=== PATIENT | female | born 1965 | race Caucasian/White ===

== ENCOUNTER 2017-04-01 13:09 | Emergency (ER) | payer BC ==
[2017-04-01] MEDS ORDERED: NS 0.9% 1000 ML* 1,000 ML IV SCH (16:00)
--- NOTE | 2017-04-01 16:30 | RAD ---
INDICATION: Short of breath . Known mediastinal adenopathy COMPARISON: None TECHNIQUE: An AP portable view obtained at 1605 hours is submitted. FINDINGS: Bones/Soft Tissues: There are no acute bony findings. Cardiomediastinal: There is a right suprahilar mass which represents a previously documented finding Lungs: There are no infiltrates. Pleura: There are no pleural effusions. Other: None IMPRESSION: LUNGS CLEAR. MEDIASTINAL ADENOPATHY.
[2017-04-01 16:31] LABS: Potassium 3.7 mmol/L (3.5-5.0)
[2017-04-01 16:32] LABS: Albumin 3.8 g/dL (3.2-5.2); BUN/Creatinine Ratio 21.8 (8-20); C Reactive Protein 105.17 mg/L (< 5.00); Calcium 8.9 mg/dL (8.6-10.3); EGFR African American 150.5 (>60); Globulin 3.1 g/dL (2-4); Magnesium 2.2 mg/dL (1.9-2.7); Total Bilirubin 0.3 mg/dL (0.2-1.0); Total Protein 6.9 g/dL (6.4-8.9)
[2017-04-01 16:33] LABS: Troponin I 0.01 ng/mL (<0.04)
[2017-04-01 16:35] LABS: Hematocrit 32 % (35-47); Hemoglobin 10.5 g/dl (12.0-16.0); Mean Corpuscular HGB Conc 33 g/dl (31-36); Mean Corpuscular Hemoglobin 28 pg (27-31); Mean Corpuscular Volume 84 fL (80-97); Mean Platelet Volume 7 um3 (7.4-10.4); Red Blood Count 3.77 10^6/ul (4.0-5.4); Red Cell Distribution Width 15 % (10.5-15); White Blood Count 3.1 10^3/ul (3.5-10.8)
[2017-04-01 16:36] LABS: Add Diff/Slide Review? Slide Review Added; Comments Flag Yes
[2017-04-01] MEDS ORDERED: Albuterol/Ipratropium NEB.SOL* Albuterol 2.5 MG/Ipratropium 0.5 MG 3 ML INH ONE (16:49)
[2017-04-01 17:06] LABS: TSH (Thyroid Stimulating Horm) 2.73 mcIU/mL (0.34-5.60)
[2017-04-01] MEDS ORDERED: Iohexol 350* (CONTRAST) 500 ML MDV IV ONE (17:48)
--- NOTE | 2017-04-01 18:01 | RAD ---
INDICATION: Lung carcinoma. Chest pain. Short of breath. Evaluate for pulmonary embolus. COMPARISON: PET scan February 25, 2017 TECHNIQUE: Axial source images were obtained from the thoracic inlet to the hemidiaphragms following administration of [address] angiographic technique was utilized. Coronal and sagittal reconstructed images were acquired. CHEST FINDINGS: Neck/thyroid: The visualized neck to include the thyroid appear normal. Chest wall: There are no acute abnormalities of the bony thorax or chest wall. There is no supraclavicular, infraclavicular, or axillary lymphadenopathy. Lungs : There are no pulmonary parenchymal masses or infiltrates. The pulmonary interstitium appears normal. There are no endobronchial lesions. Cardiomediastinal structures: There is no CT evidence of acute pulmonary embolic disease. The heart is normal in size. There is no pericardial effusion. There is no evidence of aortic aneurysm or dissection. There is again confluent mediastinal as documented on the earlier PET scan. There is no discernible interval change. Pleura : There are no pleural-based masses or effusions. Other: None. IMPRESSION: NO CT EVIDENCE OF ACUTE PULMONARY EMBOLIC DISEASE. MEDIASTINAL LYMPHADENOPATHY, UNCHANGED.
[2017-04-01] MEDS ORDERED: Albuterol HFA INHALER* 8 gm MDI INH ONE (18:42)
[2017-04-01] MEDS ORDERED: predniSONE TAB* 20 MG PO ONE (18:43)
--- NOTE | 2017-04-01 18:55 | ED ---
Gerson Srivastava Benjamin, scribed for Steve Mcrae MD on 04/01/17 at 1612 . Shortness of Breath - HPI Summary HPI Summary: 51yo female who has lung CA had her 2nd radiation therapy yesterday and report feeling SOB immediately after her therapy. Pt is still in SOB, and SOB worsens with activities. No has negative cardiac hx, and denies any CP, abdominal pain or leg edema. 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 - Onset/Duration: Gradual Onset Current Severity: Moderate Dyspnea At: Exertion Aggrevating Factors: Movement Alleviating Factors: Nothing Associated Signs & Symptoms: Negative - Allergy/Home Medications Allergies/Adverse Reactions: Allergies Allergy/AdvReac Type Severity Reaction Status Date / Time Ethanol [From Taxol] Allergy Severe Anaphylatic Verified 04/01/17 13:11 Shock Paclitaxel [From Taxol] Allergy Severe Anaphylatic Verified 04/01/17 13:11 Shock Polyoxyethylated [place] Oil Allergy Severe Anaphylatic Verified 04/01/17 13:11 [From Taxol] Shock PMH/Surg Hx/FS Hx/Imm Hx Infectious Disease History: No Infectious Disease History: Denies: Traveled Outside the [place] in Last 30 Days - Social History Alcohol Use: None Substance Use Type: Reports: None Smoking Status (MU): Unknown if Ever Smoked Review of Systems Constitutional: Negative Eyes: Negative ENT: Negative Negative: Chest Pain Positive: Shortness Of Breath Gastrointestinal: Negative Negative: Abdominal Pain Genitourinary: Negative Musculoskeletal: Negative Skin: Negative Neurological: Negative Psychological: Normal All Other Systems Reviewed And Are Negative: Yes Physical Exam Triage Information Reviewed: Yes Vital Signs On Initial Exam: Initial Vitals Temp Pulse Resp BP Pulse Ox 98.6 F 96 20 114/68 99 04/01/17 13:11 04/01/17 13:11 04/01/17 13:11 04/01/17 13:11 04/01/17 13:11 Vital Signs Reviewed: Yes Appearance: Positive: Well-Appearing, Well-Nourished, Pain Distress - mild respiratory distress Skin: Positive: Warm, Skin Color Reflects Adequate Perfusion, Dry Head/Face: Positive: Normal Head/Face Inspection Eyes: Positive: EOMI, KENYA ENT: Positive: Normal ENT inspection Neck: Positive: Supple, Nontender Respiratory/Lung Sounds: Positive: Breath Sounds Present, Wheezes - bilateral expiratory wheezing Cardiovascular: Positive: RRR. Negative: Leg Edema Left, Leg Edema Right Abdomen Description: Positive: Nontender, Soft Bowel Sounds: Positive: Present Musculoskeletal: Positive: Strength/ROM Intact. Negative: Edema Left, Edema Right Neurological: Positive: Sensory/Motor Intact, Alert, Oriented to Person Place, Time Psychiatric: Positive: Affect/Mood Appropriate - Nura Coma Scale Coma Scale Total: 15 Diagnostics - Vital Signs Vital Signs Temp Pulse Resp BP Pulse Ox 04/01/17 13:11 98.6 F 96 20 114/68 99 - Laboratory Lab Results: Lab Results 04/01/17 04/01/17 04/01/17 Range/Units 16:00 16:00 16:00 WBC 3.1 L (3.5-10.8) 10^3/ul RBC 3.77 L (4.0-5.4) 10^6/ul Hgb 10.5 L (12.0-16.0) g/dl Hct 32 L (35-47) % MCV 84 (80-97) fL MCH 28 (27-31) pg MCHC 33 (31-36) g/dl RDW 15 (10.5-15) % Plt Count 131 L (150-450) 10^3/ul MPV 7 L (7.4-10.4) um3 Neut % (Auto) 69.9 (38-83) % Lymph % (Auto) 15.7 L (25-47) % Kane % (Auto) 12.4 H (1-9) % Eos % (Auto) 1.1 (0-6) % Baso % (Auto) 0.9 (0-2) % Absolute Neuts (auto) 2.2 (1.5-7.7) 10^3/ul Absolute Lymphs (auto) 0.5 L (1.0-4.8) 10^3/ul Absolute Monos (auto) 0.4 (0-0.8) 10^3/ul Absolute Eos (auto) 0 (0-0.6) 10^3/ul Absolute Basos (auto) 0 (0-0.2) 10^3/ul Absolute Nucleated RBC 0 10^3/ul Nucleated RBC % 0.1 INR (Anticoag Therapy) 0.94 (0.89-1.11) APTT 27.9 (26.0-36.3) seconds Sodium 133 (133-145) mmol/L Potassium 3.7 (3.5-5.0) mmol/L Chloride 101 (101-111) mmol/L Carbon Dioxide 25 (22-32) mmol/L Anion Gap 7 (2-11) mmol/L BUN 12 (6-24) mg/dL Creatinine 0.55 (0.51-0.95) mg/dL Est GFR ( Amer) 150.5 (>60) Est GFR (Non-Af Amer) 117.0 (>60) BUN/Creatinine Ratio 21.8 H (8-20) Glucose 116 H (70-100) mg/dL Lactic Acid (0.5-2.0) mmol/L Calcium 8.9 (8.6-10.3) mg/dL Magnesium 2.2 (1.9-2.7) mg/dL Total Bilirubin 0.30 (0.2-1.0) mg/dL AST 17 (13-39) U/L ALT 34 (7-52) U/L Alkaline Phosphatase 66 (34-104) U/L Total Creatine Kinase 26 (10-223) U/L CK-MB (CK-2) 0.9 (0.6-6.3) ng/mL Troponin I 0.01 (<0.04) ng/mL C-Reactive Protein 105.17 H (< 5.00) mg/L B-Natriuretic Peptide ( - 100) pg/mL Total Protein 6.9 (6.4-8.9) g/dL Albumin 3.8 (3.2-5.2) g/dL Globulin 3.1 (2-4) g/dL Albumin/Globulin Ratio 1.2 (1-3) Lipase 14 (11.0-82.0) U/L TSH 2.73 (0.34-5.60) mcIU/mL 04/01/17 04/01/17 Range/Units 16:00 16:00 WBC (3.5-10.8) 10^3/ul RBC (4.0-5.4) 10^6/ul Hgb (12.0-16.0) g/dl Hct (35-47) % MCV (80-97) fL MCH (27-31) pg MCHC (31-36) g/dl RDW (10.5-15) % Plt Count (150-450) 10^3/ul MPV (7.4-10.4) um3 Neut % (Auto) (38-83) % Lymph % (Auto) (25-47) % Kane % (Auto) (1-9) % Eos % (Auto) (0-6) % Baso % (Auto) (0-2) % Absolute Neuts (auto) (1.5-7.7) 10^3/ul Absolute Lymphs (auto) (1.0-4.8) 10^3/ul Absolute Monos (auto) (0-0.8) 10^3/ul Absolute Eos (auto) (0-0.6) 10^3/ul Absolute Basos (auto) (0-0.2) 10^3/ul Absolute Nucleated RBC 10^3/ul Nucleated RBC % INR (Anticoag Therapy) (0.89-1.11) APTT (26.0-36.3) seconds Sodium (133-145) mmol/L Potassium (3.5-5.0) mmol/L Chloride (101-111) mmol/L Carbon Dioxide (22-32) mmol/L Anion Gap (2-11) mmol/L BUN (6-24) mg/dL Creatinine (0.51-0.95) mg/dL Est GFR ( Amer) (>60) Est GFR (Non-Af Amer) (>60) BUN/Creatinine Ratio (8-20) Glucose (70-100) mg/dL Lactic Acid 0.8 (0.5-2.0) mmol/L Calcium (8.6-10.3) mg/dL Magnesium (1.9-2.7) mg/dL Total Bilirubin (0.2-1.0) mg/dL AST (13-39) U/L ALT (7-52) U/L Alkaline Phosphatase (34-104) U/L Total Creatine Kinase (10-223) U/L CK-MB (CK-2) (0.6-6.3) ng/mL Troponin I (<0.04) ng/mL C-Reactive Protein (< 5.00) mg/L B-Natriuretic Peptide 30 ( - 100) pg/mL Total Protein (6.4-8.9) g/dL Albumin (3.2-5.2) g/dL Globulin (2-4) g/dL Albumin/Globulin Ratio (1-3) Lipase (11.0-82.0) U/L TSH (0.34-5.60) mcIU/mL Result Diagrams: 04/01/17 16:00 04/01/17 16:00 Lab Statement: Any lab studies that have been ordered have been reviewed, and results considered in the medical decision making process. - Radiology CXR Xray Interpretation: No Acute Changes - IMPRESSION: LUNGS CLEAR. MEDIASTINAL ADENOPATHY. Radiology Interpretation Completed By: Radiologist - ED physician has reviewed this radiology report and agrees. - CT CTA Chest CT Interpretation: No Acute Changes - IMPRESSION: NO CT EVIDENCE OF ACUTE PULMONARY EMBOLIC DISEASE. MEDIASTINAL LYMPHADENOPATHY, UNCHANGED. CT Interpretation Completed By: Radiologist - ED physician has reviewed this radiology report and agrees. Course/Dx - Course Course Of Treatment: BP noted. Allergies noted. Medications reviewed. WHEEZING/ AIR MOVEMENT/DYSPNEA ALL IMPROVED AFTER DUO NEB. F/U HEME/ONC; RETURN IF WORSE. HOME WITH ALBUTEROL INHALER. PREDNISONE RX TO BE USED PRN. RESULTS AND PLAN DISCUSSED WITH PATIENT/. - Diagnoses Provider Diagnoses: Bronchospasm, Dyspnea Discharge - Discharge Plan Condition: Stable Disposition: HOME Prescriptions: predniSONE TAB* [Deltasone TAB*] 40 mg PO DAILY PRN #8 tab PRN Reason: Dyspnea Patient Education Materials: Bronchospasm (ED), Dyspnea (ED) Referrals: Marianne Mcneill MD [Primary Care Provider] - Additional Instructions: FOLLOW UP WITH YOUR DOCTOR. RETURN TO THE EMERGENCY DEPARTMENT FOR ANY WORSENING OF YOUR CONDITION OR QUESTIONS OR CONCERNS. The documentation as recorded by the Gerson mota Benjamin accurately reflects the service I personally performed and the decisions made by me, Steve Mcrae MD.
[2017-04-01 19:39] VITALS: BP 109/67
== END 2017-04-01 19:13 | disposition home or self-care (01) ==
LOC: ED 13:09
DX: R06.02 Shortness of breath (principal); J98.01 Acute bronchospasm; R06.00 Dyspnea, unspecified
CPT/HCPCS: 36415; 71010; 71275; 80053; 82550; 82553; 83605; 83690; 83735; 83880; 84443; 84484; 85025; 85610; 85730; 86140; 94640; 99282; A9270-GY; J7512; Q9967

== ENCOUNTER 2017-05-04 17:46 | Emergency (ER) | payer BC ==
[2017-05-04 18:01] VITALS: BP 150/102
== END 2017-05-04 18:08 | disposition left against medical advice (07) ==
LOC: ED 17:46
DX: M79.602 Pain in left arm (principal); Z53.21 Procedure and treatment not carried out due to patient leaving prior to being seen by health care provider

== ENCOUNTER 2017-10-08 11:21 | Day surgery (SDC) | payer BC ==
[~2017-10-08 11:21] MED LIST: Buffered Lidocaine 0.9% SYRIN* 5 ML/SYR SYRINGE INTRADERM ONE
[2017-10-08] MEDS ORDERED: Scopolamine 1.5 mg* PATCH ONE (12:00)
[2017-10-08] MEDS ORDERED: Levalbuterol 1.25MG/0.5ML NEB ONE (12:00)
[2017-10-08] MEDS ORDERED: Midazolam* 1 MG/ML 5 ML VIAL (5 MG) ONE (13:03)
[2017-10-08] MEDS ORDERED: Propofol* 10 MG/ML 20 ML BTL IV PUSH ONE (13:09)
[2017-10-08] MEDS ORDERED: fentaNYL* 50 MCG/ML 2 ML VIAL (100 MCG VIAL) ONE (13:09)
[2017-10-08] MEDS ORDERED: Atracurium* 10 MG/ML 10 ML VIAL ONE (13:09)
[2017-10-08] MEDS ORDERED: Dexamethasone IV* 4 MG/ML 1 ML (4 MG) ONE ×2 (13:18→13:19)
[2017-10-08] MEDS ORDERED: Naloxone* 0.4 MG/ML 1 ML VIAL IV PRN (13:54)
[2017-10-08] MEDS ORDERED: fentaNYL* 50 MCG/ML 2 ML VIAL (100 MCG VIAL) IV PRN (13:54)
[2017-10-08] MEDS ORDERED: oxyCODONE/Acetamin 5/325 MG* TAB PO PRN (13:54)
[2017-10-08] MEDS ORDERED: HYDROcodone/ACETAMIN 5-325 MG* 1 TAB PO PRN (13:54)
[2017-10-08] MEDS ORDERED: DiMENhydriNATE IV* 50 MG/ML VIAL IV PUSH PRN (13:54)
[2017-10-08] MEDS ORDERED: Levalbuterol 0.63MG/3ML NEB* UNIT OF USE INH ONE (14:23)
[2017-10-08] MEDS ORDERED: HYDROcodone/ACETAMIN 5-325 MG* 1 TAB ONE (14:54)
[2017-10-08 15:15] VITALS: BP 131/86
--- NOTE | 2017-10-09 10:46 | PRO ---
BRONCHOSCOPY REPORT: DATE OF PROCEDURE: 10/08/17 PROCEDURE PERFORMED: Bronchoscopy with endobronchial ultrasound-guided fine needle aspiration from station 7 lymph node. PREPROCEDURAL DIAGNOSIS: Mediastinal adenopathy, lung mass, rule out malignancy. ANESTHESIA: General anesthesia. ANESTHESIOLOGIST: Dr. Moreno. DESCRIPTION OF PROCEDURE: Informed consent was obtained from the patient prior to the procedure after all the risks and benefits were thoroughly explained. The patient has been undergoing evaluation for malignancy. Appropriate time- out was agreed on by attending staff. The patient was intubated with size 8.0 endotracheal tube prior to the procedure. Flexible Olympus bronchoscope was then inserted through ET tube for airway inspection. Thick secretions were noted on both sides and were suctioned out. ET tube positioning was confirmed to be 2 cm above the level of manasa. Bronchoscope was then advanced into the left bronchial tree, which was inspected. Evidence of mucosal irregularity, thick secretions and tracheomalacia was noted. Bronchoscope was then advanced into right bronchial tree. Evidence of endobronchial narrowing was noted in the right bronchial tree. There were thick secretions plugging middle lobe bronchus and also superior segment, which were suctioned out. The patient also noted to have mucous plug in medial basal segment of right lower lobe bronchus. Mucosal irregularity was noted throughout the right bronchial tree. Further inspection of medial basal segment could not be performed as it was significantly narrowed and bronchoscope cannot be inserted further. The patient noted to have bleeding just with minimal suction. Bronchoscope was then withdrawn and EBUS bronchoscope was inserted. Station 7 lymph node was significantly enlarged and was accessed with 5 passes. Rapid on- site evaluation revealed malignant cells suggestive of possible non-small cell lung cancer. Rest of specimen was placed in formalin. Bronchoscope was then withdrawn. Regular bronchoscope was then inserted to evaluate for any bleeding. No significant bleeding was noted. Bronchoscope was then withdrawn. The patient extubated and seen in Recovery in optimal condition. [id number]/[facility] #: [id number] [facility]
== END 2017-10-08 15:21 | disposition home or self-care (01) ==
LOC: OR 11:21
PROVIDERS: ATTEND Internal Medicine
DX: C34.90 Malignant neoplasm of unspecified part of unspecified bronchus or lung (principal); C77.1 Secondary and unspecified malignant neoplasm of intrathoracic lymph nodes; Z87.891 Personal history of nicotine dependence; R06.02 Shortness of breath; R06.83 Snoring; E66.09 Other obesity due to excess calories; I10 Essential (primary) hypertension
CPT/HCPCS: 81445; 88172; 88173; 88177; 88305; 88360; A9270-GY; J1100; J2250; J2704; J3010

== ENCOUNTER 2017-11-17 14:45 | Inpatient (IN) | payer BC ==
[2017-11-17] MEDS ORDERED: Ipratropium 0.5MG/2.5ML NEB* 0.5 MG/2.5 ML NEB.SOLN INH PRN (15:04)
[2017-11-17] MEDS ORDERED: LORazepam INJ* 2 MG/ML 1 ML VIAL IV PUSH PRN (15:11)
[2017-11-17] MEDS: Azithromycin IV(*) 250 MG in NS 0.9% 250 ML* 250 ML IVPB SCH (19:01)
[2017-11-18] MEDS ORDERED: Albuterol/Ipratropium NEB.SOL* Albuterol 2.5 MG/Ipratropium 0.5 MG 3 ML INH PRN (09:11)
--- NOTE | 2017-11-18 09:18 | PN ---
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 She was admitted yesterday for a COPD exacerbation. CTA negative for PE but did show dense consolidation of RML. No fevers overnight. Wanda reports that she feels slightly better today than yesterday. Still SOB with minimal activity with a productive cough. ] Objective: [ Vital Signs Temp Pulse Resp BP Pulse Ox 98.1 F 109 20 144/92 97 11/18/17 03:56 11/18/17 03:56 11/18/17 08:14 11/18/17 03:56 11/18/17 03:56 Hydrocodone Bitart/Acetaminophen (Nortab 7.5/325 Liq*) 15 ml PO Q6HR PRN PRN Reason: PAIN Albuterol/Ipratropium (Duoneb (Albuterol 2.5 Mg/Ipratropium 0.5 Mg)) 1 neb INH Q4H PRN PRN Reason: SOB/WHEEZING Device (Tiotropium Inhaler Device*) 1 each INH .USE w/ SPIRIVA CAPS ALLYSSA Duloxetine HCl (Cymbalta Cap*) 60 mg PO DAILY ALLYSSA Enoxaparin Sodium (Lovenox(*)) 120 mg SUBCUT Q24H ALLYSSA Guaifenesin (Mucinex*) 1,200 mg PO BID ALLYSSA Azithromycin 250 mg/ Sodium (Chloride) 250 mls @ 250 mls/hr IVPB Q24H ALLYSSA Last Admin: 11/17/17 19:01 Dose: 250 mls/hr Ceftriaxone Sodium 1 gm/ (Sodium Chloride) 50 mls @ 200 mls/hr IVPB Q24H ALLYSSA Lisinopril (Prinivil Tab*) 10 mg PO QAM ALLYSSA Lorazepam (Ativan Inj*) 0.5 mg IV PUSH Q4H PRN PRN Reason: Anxiety/insomnia Last Admin: 11/18/17 08:14 Dose: 0.5 mg Methylprednisolone Sodium Succinate (Solu-Medrol 40 Mg) 40 mg IV Q12H ALLYSSA Tiotropium [place] (Spiriva Cap.Inh*) 1 cap INH DAILY ALLYSSA Exam: Gen: 52 yo female who appears mildly ill. Cushingoid appearance HEENT: MMM, no thrush Resp: reduced breath sounds diffusely, focal wheeze in R anterior lung field CV: RRR, no m/r/g Abd: soft, nonTTP Ext: no edema Skin: no rashes or lesions Assessment: [52 yo female with squamous cell carcinoma of the lung on palliative taxotere s/ p C2 admitted with what appears to be a PNA with COPD exacerbation.] Plan: [1. PNA with COPD exacerbation - start Ceftriaxone, cont Azithromycin - cont prn DuoNebs - add Spiriva - start Solumedrol - pulm consult requested 2. Squamous cell lung CA - hold chemo until PNA resolved 3. H/o PE - resumed Lovenox 4. Code - FULL Dispo: anticipate dc home in 2-3 days]
[2017-11-18] MEDS ORDERED: Spiriva Inhaler DEVICE* 1 EACH DEVICE SCH (10:00)
[2017-11-18] MEDS ORDERED: Spiriva Inhaler DEVICE* 1 EACH DEVICE INH SCH (10:00)
[2017-11-18] MEDS: DULoxetine DR CAP* 60 MG CAP.DR PO SCH (10:17)
[2017-11-18] MEDS: guaiFENesin ER TAB 600 MG PO SCH ×2 (10:17→20:24)
[2017-11-18] MEDS: Lisinopril TAB* 10 MG PO SCH (10:18)
[2017-11-18] MEDS: methylPREDNISolone SOD 40 MG* 1 ML VIAL IV SCH ×2 (10:19→20:24)
[2017-11-18] MEDS: cefTRIAXone(*) 1 GM in NS 0.9% 50 ML* 50 ML IVPB SCH (10:31)
[2017-11-18] MEDS: Tiotropium CAP.INH* CAP.INH/18 MCG (USE ORDER SET !) INH SCH (10:38)
[2017-11-18] MEDS ORDERED: Sodium Chloride(INHALANT) 7%* 4 ML NEB.SOLN INH PRN (13:06)
[2017-11-18] MEDS: Azithromycin IV(*) 250 MG in NS 0.9% 250 ML* 250 ML IVPB SCH (16:37)
[2017-11-18] MEDS: Enoxaparin(*) 150 MG/ML 1 ML SYRINGE SUBCUT SCH (16:37)
--- NOTE | 2017-11-18 18:32 | CONS ---
PULMONARY CONSULTATION REPORT: DATE OF CONSULT: 11/18/17 CONSULTATION REQUESTED BY: Dr. Marianne Mcneill. REASON FOR CONSULT: Evaluation of shortness of breath. 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 The patient was admitted to the hospital for evaluation of worsening shortness of breath. The patient has been having worsening shortness of breath over the past few days. The patient has been avoiding evaluation, but it worsened over the past 2 days and her brought her to her oncologist for evaluation. The patient noted to be in significant distress, complained of chest discomfort, cough, and inability to take deep breath. The patient also reported productive cough. The patient denies fevers or chills. The patient subsequently was scheduled to undergo CTA of the chest. I have personally reviewed CTA of the chest. The patient did not have any filling defects in the pulmonary artery. The patient noted to have consolidation in the right middle lobe and superior segment of right lower lobe with air bronchograms. The patient also with evidence of right pleural effusion. There is increase in consolidation in the right middle and right lower lobe in comparison with prior CT from August of 2017. The patient also with small right pericardial effusion. The patient was initiated on antibiotics, nebulizers, and was admitted for acute COPD exacerbation. The patient was seen and examined at bedside this morning. The patient complained of abdominal discomfort in the right upper quadrant. The patient was crying at the time of my evaluation. The patient reports improvement in breathing since admission. She has been on room air. The patient reports inability to expectorate the phlegm. The patient did not have any tenderness on palpation. The patient reported last bowel movement being yesterday. Denies nausea, vomiting. The patient reports being able to expectorate flatus. PAST MEDICAL HISTORY: 1. COPD. 2. Metastatic squamous cell lung cancer. 3. Hypertension. PAST SURGICAL HISTORY: Teeth removed in 2017, cholecystectomy in 2014, total hysterectomy and bilateral salpingo-oophorectomy in 2009. MEDICATIONS AT HOME: 1. Duloxetine. 2. Hydromorphone. 3. Acetaminophen. 4. Lisinopril. 5. Multivitamin. 6. NicoDerm. 7. Prednisone 20 mg. 8. Ventolin. ALLERGIES: TAXOL. FAMILY HISTORY: Noncontributory to current complaint. SOCIAL HISTORY: , lives at home with her . A 40-pack year smoking history. No alcohol or drug abuse. Using nicotine patch and vapor inhaler. REVIEW OF SYSTEMS: All 14 systems reviewed. Other pertinent symptoms are fatigue, depression. PHYSICAL EXAM: The patient is in bed, in no apparent distress at this time, is tearful. Vital Signs: Temperature 97.7, pulse 100 beats per minute, respiratory rate 16 per minute, O2 saturation 96% on room air, blood pressure 129/66. HEENT: Pupils equal, reactive to light. Mucous membranes moist. Lungs : Scattered wheezing bilaterally, diminished air entry both sides. Cardiovascular: S1, S2 present, regular. No murmurs, gallops, or rubs. Abdomen: Soft, nontender, nondistended. Bowel sounds present. No rebound tenderness noted. Skin: No rash or bruise. Neuro: No focal deficits. Psych : Depressed, not suicidal. Extremities: Normal range of motion. No edema. DIAGNOSTIC STUDIES/LAB DATA: WBC 7.6, hemoglobin 11.4, hematocrit 34, platelet count of 250. Blood gas analysis showed no evidence of acidosis with pCO2 of 71 and bicarb of 25.3. Sodium 136, potassium 3.6, chloride 103, bicarb 26, BUN 17, creatinine 0.64. Lactic acid within normal limits. Troponin initially elevated at 0.04, improved to normal of 0.01. CTA of the chest as described above in HPI. IMPRESSION AND RECOMMENDATIONS: 52-year-old female with extensive smoking history with history of chronic obstructive pulmonary disease, progression of squamous cell carcinoma of the lung, on palliative chemotherapy, admitted for worsening shortness of breath, being treated for right middle lobe pneumonia and acute chronic obstructive pulmonary disease exacerbation. The patient is on Rocephin and Zithromax. Continue with DuoNeb q.4 hours while awake. Will order MetaNeb given inability to mobilize secretions. She will also benefit from hypertonic saline nebs, which were ordered. Continue with Solu-Medrol. Will do slow taper On Lovenox given history of deep venous thrombosis/pulmonary embolism. Continue with Spiriva. Recommend adequate analgesia given the patient's complaint of pain. The patient is stable on room air. I think depression is also playing major role in her symptoms. She might have persistent obstruction in the right middle lobe given progression of the malignancy. Bronchoscopy would not be helpful. She is saturating well on room air at this time and not needing urgent airway clearance. She already has diagnosis and biopsy is not indicated. Would continue with conservative management at this time. She might benefit from psychiatric evaluation for management of depression. She is already on Cymbalta , did not want to be seen by Psych. Thank you for allowing me to participate in the care of your patient. Will follow up with you. [id number]/[facility] #: [id number] TRU
[2017-11-18] MEDS: Albuterol/Ipratropium NEB.SOL* Albuterol 2.5 MG/Ipratropium 0.5 MG 3 ML INH SCH (19:36)
[2017-11-18] MEDS ORDERED: traMADol TAB* 50 MG PO PRN (20:00)
[2017-11-18] MEDS: HYDROcodone/ACET. 7.5/325 LIQ* 15 ML UDC PO PRN (20:24)
[2017-11-19] MEDS: Albuterol/Ipratropium NEB.SOL* Albuterol 2.5 MG/Ipratropium 0.5 MG 3 ML INH SCH ×4 (01:22→20:43)
[2017-11-19 05:52] LABS: ABS Basophils 0 10^3/ul (0-0.2); ABS Eosinophils 0 10^3/ul (0-0.6); ABS Lymphocytes 0.7 10^3/ul (1.0-4.8); ABS Monocytes 0.4 10^3/ul (0-0.8); ABS Neutrophils 5.2 10^3/ul (1.5-7.7); ABS Nucleated RBC 0 10^3/ul; Eosinophil % 0 % (0-6); Hematocrit 30 % (35-47); Lymphocyte % 11.2 % (25-47); Mean Corpuscular HGB Conc 34 g/dl (31-36); Mean Corpuscular Hemoglobin 30 pg (27-31); Mean Corpuscular Volume 89 fL (80-97); Nucleated Red Blood Cells % 0.4; Platelet Count 316 10^3/ul (150-450); Red Blood Count 3.34 10^6/ul (4.00-5.40); Red Cell Distribution Width 17 % (10.5-15); White Blood Count 6.3 10^3/ul (3.5-10.8)
[2017-11-19 06:08] LABS: EGFR Non-African American 97.8 (>60)
[2017-11-19] MEDS: Tiotropium CAP.INH* CAP.INH/18 MCG (USE ORDER SET !) INH SCH (07:24)
[2017-11-19] MEDS: DULoxetine DR CAP* 60 MG CAP.DR PO SCH (09:44)
[2017-11-19] MEDS: guaiFENesin ER TAB 600 MG PO SCH ×2 (09:44→22:24)
[2017-11-19] MEDS: Lisinopril TAB* 10 MG PO SCH (09:44)
[2017-11-19] MEDS: methylPREDNISolone SOD 40 MG* 1 ML VIAL IV SCH (09:44)
[2017-11-19] MEDS: cefTRIAXone(*) 1 GM in NS 0.9% 50 ML* 50 ML IVPB SCH (09:50)
--- NOTE | 2017-11-19 10:51 | PN ---
Progress Note - Progress Note Date of Service: 11/19/17 SOAP: Subjective: [She is still coughing, dyspnea improved. Some trouble with sleeping due to the cough. Overall feeling much better.] Objective: [ Laboratory Results - last 24 hr 11/19/17 11/19/17 05:15 05:15 WBC 6.3 RBC 3.34 L Hgb 10.0 L Hct 30 L MCV 89 MCH 30 MCHC 34 RDW 17 H Plt Count 316 MPV 7.0 L Neut % (Auto) 82.6 Lymph % (Auto) 11.2 L Dougherty % (Auto) 6.1 Eos % (Auto) 0 Baso % (Auto) 0.1 Absolute Neuts (auto) 5.2 Absolute Lymphs (auto) 0.7 L Absolute Monos (auto) 0.4 Absolute Eos (auto) 0 Absolute Basos (auto) 0 Absolute Nucleated RBC 0 Nucleated RBC % 0.4 Sodium 139 Potassium 4.3 Chloride 105 Carbon Dioxide 27 Anion Gap 7 BUN 17 Creatinine 0.64 Est GFR ( Amer) 118.4 Est GFR (Non-Af Amer) 97.8 BUN/Creatinine Ratio 26.6 H Glucose 126 H Calcium 9.3 Total Bilirubin 0.30 AST 9 L ALT 14 Alkaline Phosphatase 44 Total Protein 6.3 L Albumin 3.6 Globulin 2.7 Albumin/Globulin Ratio 1.3 Hydrocodone Bitart/Acetaminophen (Nortab 7.5/325 Liq*) 15 ml PO Q6HR PRN PRN Reason: PAIN Last Admin: 11/18/17 20:24 Dose: 15 ml Albuterol/Ipratropium (Duoneb (Albuterol 2.5 Mg/Ipratropium 0.5 Mg)) 1 neb INH Q4H PRN PRN Reason: SOB/WHEEZING Last Admin: 11/18/17 10:38 Dose: 1 neb Albuterol/Ipratropium (Duoneb (Albuterol 2.5 Mg/Ipratropium 0.5 Mg)) 1 neb INH [id number] AWAKE [facility] Last Admin: 11/19/17 07:24 Dose: 1 neb Device (Tiotropium Inhaler Device*) 1 each INH .USE w/ SPIRIVA CAPS ALLYSSA Duloxetine HCl (Cymbalta Cap*) 60 mg PO DAILY [facility] Last Admin: 11/19/17 09:44 Dose: 60 mg Enoxaparin Sodium (Lovenox(*)) 120 mg SUBCUT Q24H [facility] Last Admin: 11/18/17 16:37 Dose: 120 mg Guaifenesin (Mucinex*) 1,200 mg PO BID [facility] Last Admin: 11/19/17 09:44 Dose: 1,200 mg Azithromycin 250 mg/ Sodium (Chloride) 250 mls @ 250 mls/hr IVPB Q24H [facility] Last Admin: 11/18/17 16:37 Dose: 250 mls/hr Ceftriaxone Sodium 1 gm/ (Sodium Chloride) 50 mls @ 200 mls/hr IVPB Q24H [facility] Last Admin: 11/19/17 09:50 Dose: 200 mls/hr Lisinopril (Prinivil Tab*) 10 mg PO QAM [facility] Last Admin: 11/19/17 09:44 Dose: 10 mg Lorazepam (Ativan Inj*) 0.5 mg IV PUSH Q4H PRN PRN Reason: Anxiety/insomnia Last Admin: 11/18/17 08:14 Dose: 0.5 mg Methylprednisolone Sodium Succinate (Solu-Medrol 40 Mg) 40 mg IV Q12H [facility] Last Admin: 11/19/17 09:44 Dose: 40 mg Sodium Chloride (Hyper-Arsen 7%*) 4 ml INH .SEE ORDERS PRN PRN Reason: WHEEZING Tiotropium [place] (Spiriva Cap.Inh*) 1 cap INH DAILY [facility] Last Admin: 11/19/17 07:24 Dose: 1 cap Tramadol HCl (Ultram*) 50 mg PO Q6H PRN PRN Reason: PAIN - MILD 1-4 Vital Signs: Temp Pulse Resp BP Pulse Ox 98.2 F 88 22 152/90 96 11/19/17 07:15 11/19/17 07:24 11/19/17 08:00 11/19/17 07:15 11/19/17 07:24 Exam: Gen: 52 yo female who appears mildly ill, but improved affect. Cushingoid appearance HEENT: MMM, no thrush Resp: improved breath sounds, faint wheeze in R anterior lung field CV: RRR, no m/r/g Abd: soft, nonTTP Ext: no edema Skin: no rashes or lesions Assessment: [52 yo female with squamous cell carcinoma of the lung on palliative taxotere s/ p C2 admitted with what appears to be a PNA with COPD exacerbation.] Plan: [1. PNA with COPD exacerbation - Cont Ceftriaxone, cont Azithromycin - cont prn DuoNebs - add Spiriva - cont Solumedrol today, start taper to oral prednisone - pulm consult requested 2. Squamous cell lung CA - hold chemo until PNA resolved 3. H/o PE - resumed Lovenox this admission, may be able to transition to Eliquis after a few weeks 4. Code - FULL Dispo: anticipate possible dc home tomorrow]
[2017-11-19] MEDS: HYDROcodone/ACET. 7.5/325 LIQ* 15 ML UDC PO PRN (11:58)
--- NOTE | 2017-11-19 12:45 | PN ---
Progress Note - Progress Note Date of Service: 11/19/17 - Pulm f/u note Note: Pt seen and examined at bedside. Pt reports feeling better, denies significant SOB, discomfort in chest and abdomen when she takes deep breath. Slept well last night Active Medications Generic Name Dose Route Start Last Admin Trade Name Freq PRN Reason Stop Dose Admin Hydrocodone Bitart/Acetaminophen 15 ml 11/18/17 08:45 11/19/17 11:58 Nortab 7.5/325 Liq* PO 15 ml Q6HR PRN Administration PAIN Albuterol/Ipratropium 1 neb 11/18/17 09:11 11/18/17 10:38 Duoneb (Albuterol 2.5 Mg/Ipratropium 0.5 Mg) INH 1 neb Q4H PRN Administration SOB/WHEEZING Albuterol/Ipratropium 1 neb 11/18/17 19:00 11/19/17 07:24 Duoneb (Albuterol 2.5 Mg/Ipratropium 0.5 Mg) INH 1 neb [id number] AWAKE ALLYSSA Administration Device 1 each 11/18/17 10:00 Tiotropium Inhaler Device* INH .USE w/ SPIRIVA CAPS ALLYSSA Duloxetine HCl 60 mg 11/18/17 09:00 11/19/17 09:44 Cymbalta Cap* PO 60 mg DAILY ALLYSSA Administration Enoxaparin Sodium 120 mg 11/18/17 17:00 11/18/17 16:37 Lovenox(*) SUBCUT 120 mg Q24H ALLYSSA Administration Guaifenesin 1,200 mg 11/18/17 09:00 11/19/17 09:44 Mucinex* PO 1,200 mg BID ALLYSSA Administration Azithromycin 250 mg/ Sodium 250 mls @ 250 mls/hr 11/17/17 18:00 11/18/17 16: 37 Chloride IVPB 250 mls/hr Q24H ALLYSSA Administration Ceftriaxone Sodium 1 gm/ 50 mls @ 200 mls/hr 11/18/17 09:30 11/19/17 09:50 Sodium Chloride IVPB 200 mls/hr Q24H ALLYSSA Administration Lisinopril 10 mg 11/18/17 09:00 11/19/17 09:44 Prinivil Tab* PO 10 mg QAM ALLYSSA Administration Lorazepam 0.5 mg 11/17/17 15:11 11/18/17 08:14 Ativan Inj* IV PUSH 0.5 mg Q4H PRN Administration Anxiety/insomnia Prednisone 60 mg 11/20/17 09:00 Deltasone Tab* PO DAILY ALLYSSA Sodium Chloride 4 ml 11/18/17 13:06 Hyper-Arsen 7%* INH .SEE ORDERS PRN WHEEZING Tiotropium [place] 1 cap 11/18/17 10:00 11/19/17 07:24 Spiriva Cap.Inh* INH 1 cap DAILY ALLYSSA Administration Tramadol HCl 50 mg 11/18/17 20:00 Ultram* PO Q6H PRN PAIN - MILD 1-4 Vital Signs Temp Pulse Resp BP Pulse Ox 98.2 F 88 16 152/90 96 11/19/17 07:15 11/19/17 07:24 11/19/17 11:58 11/19/17 07:15 11/19/17 07:24 O/E: Pt in NAD HEENT: PERRLA, No JVD Lungs; Diminished air entry, scaterred rhonchi on left CVS: S1, S2+ Abd: Soft, BS+ Ext; No edema Neuro; No focal defecits Skin: No rah or bruise Laboratory Results - last 24 hr 11/19/17 11/19/17 05:15 05:15 WBC 6.3 RBC 3.34 L Hgb 10.0 L Hct 30 L MCV 89 MCH 30 MCHC 34 RDW 17 H Plt Count 316 MPV 7.0 L Neut % (Auto) 82.6 Lymph % (Auto) 11.2 L [place] % (Auto) 6.1 Eos % (Auto) 0 Baso % (Auto) 0.1 Absolute Neuts (auto) 5.2 Absolute Lymphs (auto) 0.7 L Absolute Monos (auto) 0.4 Absolute Eos (auto) 0 Absolute Basos (auto) 0 Absolute Nucleated RBC 0 Nucleated RBC % 0.4 Sodium 139 Potassium 4.3 Chloride 105 Carbon Dioxide 27 Anion Gap 7 BUN 17 Creatinine 0.64 Est GFR ( Amer) 118.4 Est GFR (Non-Af Amer) 97.8 BUN/Creatinine Ratio 26.6 H Glucose 126 H Calcium 9.3 Total Bilirubin 0.30 AST 9 L ALT 14 Alkaline Phosphatase 44 Total Protein 6.3 L Albumin 3.6 Globulin 2.7 Albumin/Globulin Ratio 1.3 I/R: 52 y o f with 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
[2017-11-19] MEDS: Enoxaparin(*) 150 MG/ML 1 ML SYRINGE SUBCUT SCH (18:00)
[2017-11-19] MEDS: Azithromycin IV(*) 250 MG in NS 0.9% 250 ML* 250 ML IVPB SCH (18:01)
[2017-11-20] MEDS: Albuterol/Ipratropium NEB.SOL* Albuterol 2.5 MG/Ipratropium 0.5 MG 3 ML INH SCH ×2 (02:02→07:08)
[2017-11-20] MEDS: HYDROcodone/ACET. 7.5/325 LIQ* 15 ML UDC PO PRN (04:14)
[2017-11-20] MEDS: Tiotropium CAP.INH* CAP.INH/18 MCG (USE ORDER SET !) INH SCH (07:09)
[2017-11-20] MEDS: guaiFENesin ER TAB 600 MG PO SCH (07:16)
[2017-11-20] MEDS: Lisinopril TAB* 10 MG PO SCH (07:17)
[2017-11-20] MEDS: DULoxetine DR CAP* 60 MG CAP.DR PO SCH (07:17)
--- NOTE | 2017-11-20 08:01 | PN ---
Progress Note - Progress Note Date of Service: 11/20/17 SOAP: Subjective: []Doing well. Breathing improved yesterday. Some pain last night but better today. Same pain on right side has had in past. No cough. Hydrocodone Bitart/Acetaminophen (Nortab 7.5/325 Liq*) 15 ml PO Q6HR PRN PRN Reason: PAIN Last Admin: 11/20/17 04:14 Dose: 15 ml Albuterol/Ipratropium (Duoneb (Albuterol 2.5 Mg/Ipratropium 0.5 Mg)) 1 neb INH Q4H PRN PRN Reason: SOB/WHEEZING Last Admin: 11/18/17 10:38 Dose: 1 neb Albuterol/Ipratropium (Duoneb (Albuterol 2.5 Mg/Ipratropium 0.5 Mg)) 1 neb INH [id number] AWAKE [facility] Last Admin: 11/20/17 07:08 Dose: 1 neb Device (Tiotropium Inhaler Device*) 1 each INH .USE w/ SPIRIVA CAPS [facility] Duloxetine HCl (Cymbalta Cap*) 60 mg PO DAILY [facility] Last Admin: 11/20/17 07:17 Dose: 60 mg Enoxaparin Sodium (Lovenox(*)) 120 mg SUBCUT Q24H [facility] Last Admin: 11/19/17 18:00 Dose: 120 mg Guaifenesin (Mucinex*) 1,200 mg PO BID [facility] Last Admin: 11/20/17 07:16 Dose: 1,200 mg Azithromycin 250 mg/ Sodium (Chloride) 250 mls @ 250 mls/hr IVPB Q24H [facility] Last Admin: 11/19/17 18:01 Dose: 250 mls/hr Ceftriaxone Sodium 1 gm/ (Sodium Chloride) 50 mls @ 200 mls/hr IVPB Q24H [facility] Last Admin: 11/19/17 09:50 Dose: 200 mls/hr Lisinopril (Prinivil Tab*) 10 mg PO QAM [facility] Last Admin: 11/20/17 07:17 Dose: 10 mg Lorazepam (Ativan Inj*) 0.5 mg IV PUSH Q4H PRN PRN Reason: Anxiety/insomnia Last Admin: 11/18/17 08:14 Dose: 0.5 mg Prednisone (Deltasone Tab*) 60 mg PO DAILY [facility] Last Admin: 11/20/17 07:17 Dose: 60 mg Sodium Chloride (Hyper-Arsen 7%*) 4 ml INH .SEE ORDERS PRN PRN Reason: WHEEZING Tiotropium [place] (Spiriva Cap.Inh*) 1 cap INH DAILY [facility] Last Admin: 11/20/17 07:09 Dose: 1 cap Tramadol HCl (Ultram*) 50 mg PO Q6H PRN PRN Reason: PAIN - MILD 1-4 Last Admin: 11/20/17 07:16 Dose: 50 mg Objective: [] Vital Signs Temp Pulse Resp BP Pulse Ox 98.9 F 78 16 139/79 98 11/20/17 03:52 11/20/17 07:11 11/20/17 07:16 11/20/17 05:20 11/20/17 07:11 Exam: Gen: 52 yo female who appears mildly ill, but improved affect. Cushingoid appearance HEENT: MMM, no thrush Resp: faint wheeze in R anterior lung field but otherwise clear - No pain to pressure or palpation on right. some pain with deep breath. 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 PNA with COPD exacerbation - D/C today on po antibotics. - cont Spiriva - oral prednisone on discharge. - pulm consult requested 2. Squamous cell lung CA - hold chemo until PNA resolved 3. H/o PE - resumed Lovenox this admission, may be able to transition to Eliquis after a few weeks 4. Pain. Sending Hydrocodone 4 mg prn at home x 1 week
[2017-11-20 08:12] VITALS: BP 135/75
[2017-11-20] MEDS: cefTRIAXone(*) 1 GM in NS 0.9% 50 ML* 50 ML IVPB SCH (08:59)
[2017-11-20] MEDS ORDERED: predniSONE TAB* 20 MG PO SCH (09:00)
--- NOTE | 2017-11-20 14:09 | DS ---
DISCHARGE SUMMARY: DATE OF ADMISSION: 11/17/17 DATE OF DISCHARGE: 11/20/17 DISCHARGE DIAGNOSES: 1. Pneumonia. 2. Chronic obstructive pulmonary disease. 3. Squamous cell cancer of the lung, on palliative chemotherapy. HOSPITAL COURSE: She came in on 11/17/17 with increasing shortness of breath and currently on pallia tive chemotherapy. CT scan showed a right lower lobe infiltrate. She has known baseline COPD. She w as admitted, placed on steroids, nebulizers, and antibiotics. She has done better over the past 3 da ys. Her breathing has improved significantly. She has remained afebrile over the last 24 hours. Re view of the CT of the chest did not show PE. There is a right middle lobe consolidation with air bro nchogram that is progressive from the August CT scan. As her breathing is better today, plan will be to discharge on home antibiotics and steroids. Chemot herapy will be on hold for the time being. DISCHARGE MEDICATIONS: 1. Cymbalta 60 mg daily. 2. Guaifenesin 1200 mg b.i.d. 3. Hydrocodone/acetaminophen 7.5/325 q.6 p.r.n. 4. Lisinopril 10 mg daily. 5. Albuterol nebulizers q.6 hours p.r.n. 6. Albuterol metered-dose inhaler q.4 hours p.r.n. 7. Multivitamin 1 a day. 8. Prednisone 60 mg p.o. daily. 9. Spiriva once daily. Plan will be to follow up next week with Dr. Mcneill. She was instructed to call me over the [facility] ed with any increased shortness of breath. We will continue steroid dose until she sees Dr. Mcneill. [id number]/[facility] #: [id number]
== END 2017-11-20 09:50 | disposition home or self-care (01) | DRG 139 ==
LOC: MEDTELE 16:43 → MED 11-18 13:44
PROVIDERS: ADMIT Internal Medicine Hematology & Oncology; ATTEND Internal Medicine Hematology & Oncology
DX: J18.9 Pneumonia, unspecified organism (principal); J44.1 Chronic obstructive pulmonary disease with (acute) exacerbation; C34.90 Malignant neoplasm of unspecified part of unspecified bronchus or lung; J44.0 Chronic obstructive pulmonary disease with (acute) lower respiratory infection; E87.2 Acidosis; C79.9 Secondary malignant neoplasm of unspecified site; J90 Pleural effusion, not elsewhere classified; F17.210 Nicotine dependence, cigarettes, uncomplicated; I10 Essential (primary) hypertension; B37.9 Candidiasis, unspecified; F32.9 Major depressive disorder, single episode, unspecified; Z79.51 Long term (current) use of inhaled steroids; Z85.118 Personal history of other malignant neoplasm of bronchus and lung; Z86.718 Personal history of other venous thrombosis and embolism; Z86.711 Personal history of pulmonary embolism; Z88.8 Allergy status to other drugs, medicaments and biological substances; Z90.49 Acquired absence of other specified parts of digestive tract; Z90.710 Acquired absence of both cervix and uterus; Z92.21 Personal history of antineoplastic chemotherapy; Z79.52 Long term (current) use of systemic steroids; Z90.722 Acquired absence of ovaries, bilateral
CPT/HCPCS: 36415; 36600; 71275; 80053; 82803; 83605; 83735; 84484; 85025; 93005; 94640; 94667; 94668; 99223; 99232; 99239; A9270-GY; J0456; J0696; J1650; J2060; J2920; J2930; J7512; Q9967

== ENCOUNTER 2017-11-28 09:52 | Inpatient (IN) | payer BC ==
[2017-11-28] MEDS ORDERED: Albuterol/Ipratropium NEB.SOL* Albuterol 2.5 MG/Ipratropium 0.5 MG 3 ML ONE (10:08)
[2017-11-28] MEDS ORDERED: Levofloxacin 750 MG IVPREMIX(* 750 MG/150 ML BAG IVPB ONE (10:29)
[2017-11-28] MEDS ORDERED: NS 0.9% 1000 ML* 1,000 ML IV ONE (10:29)
[2017-11-28] MEDS ORDERED: methylPREDNISolone 125 MG* 2 ML VIAL IV ONE (10:29)
[2017-11-28] MEDS ORDERED: Ipratropium 0.5MG/2.5ML NEB* 0.5 MG/2.5 ML NEB.SOLN INH ONE (10:29)
--- NOTE | 2017-11-28 10:31 | ED ---
Shortness of Breath - HPI Summary HPI Summary: This is svetlana Lezama documenting for attending Artur Tripathi MD. This patient is a 52 year old F presenting to [facility] accompanied by her with a chief complaint of shortness of breath since 1 day ago. The patient rates the pain 6/10 in severity. Symptoms aggravated by nothing. Symptoms alleviated by nothing. Patient reports nonproductive cough, anterior and posterior chest pain, and wheezing. Patient denies fever, chills, or N/V/D. Patient has been diagnosed with lung CA and received her latest round of chemotherapy approximately 3 weeks ago. Patient has hx of COPD and reports that she uses an inhaler at home. - History of Current Complaint Chief Complaint: EDShortnessOfBreath Time Seen by Provider: 11/28/17 10:14 Hx Obtained From: Patient Onset/Duration: Gradual Onset, Lasting Days - 1 day, Still Present Timing: Constant Current Severity: Moderate Dyspnea At: Rest Aggrevating Factors: Nothing Alleviating Factors: Nothing Associated Signs & Symptoms: Cough (Nonproductive), Wheezing - Allergy/Home Medications Allergies/Adverse Reactions: Allergies Allergy/AdvReac Type Severity Reaction Status Date / Time paclitaxel Allergy Severe Anaphylatic Verified 10/08/17 12:16 Shock Home Medications: Home Medications Oxycodone HCl 5 mg PO Q4HR PRN 11/28/17 [History Confirmed 11/28/17] PMH/Surg Hx/FS Hx/Imm Hx Endocrine/Hematology History: Denies: Hx Diabetes Cardiovascular History: Reports: Hx Hypertension Respiratory History: Reports: Hx Chronic Obstructive Pulmonary Disease (COPD), Other Respiratory Problems/Disorders - lung cancer, recent pneumonia History: Denies: Hx Renal Disease Sensory History: Denies: Hx Contacts or Glasses, Hx Hearing Aid Opthamlomology History: Denies: Hx Contacts or Glasses - Cancer History Cancer Type, Location and Year: LUNG CA Date and Location of Last Treatment: chemotherapy 11/11/17 Hx Chemotherapy: Yes - finished jun 2017 - Surgical History Surgery Procedure, Year, and Place: CHOLECYSTECTOMY 2014 - . HYSTERECTOMY 2010 - Hx Anesthesia Reactions: Yes - PONV Infectious Disease History: No Infectious Disease History: Denies: Traveled Outside the [place] in Last 30 Days - Family History Known Family History: Positive: None - patient denies FHx - Social History Alcohol Use: None Substance Use Type: Reports: Prescribed Substance Use Comment - Amount & Last Used: oxycodone Smoking Status (MU): Former Smoker Type: Cigarettes Amount Used/How Often: 1 ppd for 40 years Review of Systems Negative: Fever, Chills Positive: Chest Pain Positive: Shortness Of Breath, Cough - nonproductive Negative: Vomiting, Diarrhea, Nausea All Other Systems Reviewed And Are Negative: Yes Physical Exam - Summary Physical Exam Summary: VITAL SIGNS: Reviewed. GENERAL: Patient is a well-developed and nourished FEMALE who is lying comfortable in the stretcher. Patient is not in any acute respiratory distress. HEAD AND FACE: No signs of trauma. No ecchymosis, hematomas or skull depressions. No sinus tenderness. EYES: PERRLA, EOMI x 2, No injected conjunctiva, no nystagmus. EARS: Hearing grossly intact. Ear canals and tympanic membranes are within normal limits. MOUTH: Oropharynx within normal limits. NECK: Supple, trachea is midline, no adenopathy, no JVD, no carotid bruit, no c- spine tenderness, neck with full ROM. CHEST: Symmetric, no tenderness at palpation LUNGS: Wheezing. Bilateral crackles in bases of the lungs CVS: Regular rate and rhythm, S1 and S2 present, no murmurs or gallops appreciated. ABDOMEN: Soft, non-tender. No signs of distention. No rebound no guarding, and no masses palpated. Bowel sounds are normal. EXTREMITIES: FROM in all major joints, no edema, no cyanosis or clubbing. NEURO: Alert and oriented x 3. No acute neurological deficits. Speech is normal and follows commands. SKIN: Dry and warm Triage Information Reviewed: Yes Vital Signs On Initial Exam: Initial Vitals Temp Pulse Resp BP Pulse Ox 98.3 F 105 22 142/95 96 11/28/17 10:00 11/28/17 10:00 11/28/17 10:00 11/28/17 10:00 11/28/17 10:00 Vital Signs Reviewed: Yes Diagnostics - Vital Signs Vital Signs Temp Pulse Resp BP Pulse Ox 11/28/17 10:00 98.3 F 105 22 142/95 96 - Laboratory Result Diagrams: 11/28/17 10:37 11/28/17 10:37 Lab Statement: Any lab studies that have been ordered have been reviewed, and results considered in the medical decision making process. - Radiology CXR Xray Interpretation: Positive (See Comments) - IMPRESSION: SUSPECT POSTOBSTRUCTIVE PNEUMONITIS WITH EFFUSION. Dr. Tripathi has reviewed this report. Radiology Interpretation Completed By: Radiologist - EKG 10:43 Cardiac Rate: NL - at 91 bpm EKG Rhythm: Sinus Rhythm ST Segment: Normal EKG Interpretation: No ST elevations, with Q waves in III and aVF similar to EKG on 11/16/17 EKG Comparison: No Significant Change - to EKG on 11/18/17 Course/Dx - Course Assessment/Plan: This patient is a 52-year-old female who presents to the emergency department with chief complaint of having shortness of breath. The patient also reports that she is having dry cough. The patient has is, so carcinoma of the lung competitive chemotherapy, she has chronic obstructive pulmonary disease and multiple episodes of pneumonia. Patient reports that since yesterday the patients shortness of is getting worse therefore she decided to come to the emergency department for further assessment. She denies any fever or chills. She denies any chest pain nausea vomiting or diarrhea. Initially the patient was placed in a cardiac technologist, the patient was given multiple Xopenex, Solu-Medrol, and started on Levaquin. Blood test results shows a white blood cell count of 16.4, slight anemia, neutrophils of 85.1, ABG shows a pH of 7.45 PCO2 38 PO2 86 O2 sat is 98.1. CMP shows a glucose of 109 and CRP of 37.8. In the ED course the patient was given multiple to AND she feels slightly better. I discussed the case with Dr. Mcneill from oncology and she agrees with admission and she recommends for the patient to be admitted to the hospitalist service. And discussed the case with Dr. Scherer who accepted the patient for admission. Patient is hemodynamically stable alert and oriented 3. - Diagnoses Provider Diagnoses: COPD exacerbation, Lung cancer, Pneumonia - Physician Notifications Discussed Care of Patient With: Marianne Mcneill Time Discussed With Above Provider: 11:41 Instructed by Provider To: Other - Dr. Mcneill wants the patient to be admitted to [facility] by the hospitalist. Discussed patient care with Dr. Scherer, hospitalist, at 11:44. Dr. Scherer agreed to admit patient to [facility] Discharge - Sign-Out/Discharge Documenting (check all that apply): Patient Departure - Discharge Plan Condition: Stable Disposition: ADMITTED TO [facility] Referrals: Janie ALLEN,Blank [Primary Care Provider] - - Billing Disposition and Condition Condition: STABLE Disposition: Admitted to [facility]
[2017-11-28 11:16] LABS: Hematocrit 34 % (35-47); Hemoglobin 11.2 g/dl (12.0-16.0); Mean Corpuscular HGB Conc 33 g/dl (31-36); Mean Corpuscular Hemoglobin 30 pg (27-31); Mean Corpuscular Volume 88 fL (80-97); Mean Platelet Volume 6.2 um3 (7.4-10.4); Platelet Count 345 10^3/ul (150-450); Red Blood Count 3.81 10^6/ul (4.00-5.40); Red Cell Distribution Width 18 % (10.5-15); White Blood Count 16.4 10^3/ul (3.5-10.8)
[2017-11-28 11:27] LABS: EGFR Non-African American 74.5 (>60)
--- NOTE | 2017-11-28 11:33 | RAD ---
INDICATION: Short of breath. History of lung carcinoma COMPARISON: CTA chest November 17, 2017 TECHNIQUE: PA and lateral dual-energy views were obtained. FINDINGS: Bones/Soft Tissues: There are no acute bony findings. Cardiomediastinal: The cardiomediastinal silhouette is normal. Lungs: There is right middle and lower lobe infiltrative change with minor worsening. This is likely postobstructive. Pleura: There is a new right-sided effusion. Other: None IMPRESSION: SUSPECT POSTOBSTRUCTIVE PNEUMONITIS WITH EFFUSION.
[2017-11-28 11:45] LABS: ABS Basophils 0.1 10^3/ul (0-0.2); ABS Eosinophils 0 10^3/ul (0-0.6); ABS Lymphocytes 1.2 10^3/ul (1.0-4.8); ABS Monocytes 1.2 10^3/ul (0-0.8); ABS Neutrophils 13.9 10^3/ul (1.5-7.7); ABS Nucleated RBC 0.1 10^3/ul; Eosinophil % 0 % (0-6); Lymphocyte % 7.3 % (25-47); Nucleated Red Blood Cells % 0.4
[2017-11-28] MEDS ORDERED: oxyCODONE TAB* 5 MG TAB PO ONE (12:15)
[2017-11-28] MEDS ORDERED: Albuterol 2.5 MG/3 ML NEB.SOL* (0.083%) INH PRN (12:29)
[2017-11-28] MEDS ORDERED: Ondansetron INJ* 2 MG/ML VIAL IV PRN (12:29)
[2017-11-28] MEDS ORDERED: Acetaminophen TAB* 325 MG PO PRN (12:29)
[2017-11-28] MEDS ORDERED: Morphine INJ* 2 MG/ML 1 ML SYRINGE (TWO MG - NEW SYRINGE VERSION) IV PRN (12:39)
[2017-11-28] MEDS ORDERED: Vancomycin(*) 1,000 MG in NS 0.9% 250 ML* 250 ML IVPB ONE (12:41)
[2017-11-28] MEDS ORDERED: Piperacillin/Tazobac ADVAN(*) 3.375 GM in NS 0.9% 100 ML* 100 ML IVPB ONE (12:41)
[2017-11-28] MEDS ORDERED: NS 0.9% 1000 ML*IV.FLUID IV ONE (12:44)
[2017-11-28] MEDS ORDERED: NS 0.9% 1000 ML* 2,000 ML IV ONE (12:47)
[2017-11-28] MEDS ORDERED: Vancomycin(*) 0 MG in NS 0.9% 250 ML* 250 ML IVPB SCH (13:00)
[2017-11-28] MEDS ORDERED: Zosyn per Pharmacy* NOTE FOLLOW UP SCH (13:00)
[2017-11-28] MEDS ORDERED: Spiriva Inhaler DEVICE* 1 EACH DEVICE SCH (13:00)
[2017-11-28] MEDS ORDERED: methylPREDNISolone 125 MG* 2 ML VIAL IV SCH (13:00)
[2017-11-28] MEDS ORDERED: ZOSYN 3.375 GM x ONE DOSE over 30 miuntes IVPB ×2 (14:00)
[2017-11-28] MEDS: oxyCODONE/Acetamin 5/325 MG* TAB PO PRN (14:03)
[2017-11-28] MEDS: Enoxaparin(*) 150 MG/ML 1 ML SYRINGE SUBCUT SCH (14:03)
[2017-11-28] MEDS: Omeprazole CAP* 20 MG PO SCH ×2 (14:03→22:27)
[2017-11-28] MEDS ORDERED: Vancomycin(*) 1,250 MG in NS 0.9% 250 ML* 250 ML IVPB ONE (14:30)
[2017-11-28] MEDS: Benzonatate CAP* 100 MG PO PRN (14:38)
--- NOTE | 2017-11-28 15:12 | HP ---
CC: Dr. Marianne Mcneill * ADMISSION HISTORY AND PHYSICAL: DATE OF ADMISSION: 11/28/17 PRIMARY CARE PROVIDER: Dr. Marianne Mcneill. MY ATTENDING WHILE IN THE HOSPITAL: Dr. Riya Scherer.* (DICTATED BY KWESI CHAHAL) CHIEF COMPLAINT: Shortness of breath times several weeks. HISTORY OF PRESENT ILLNESS: Ms. Santiago is a 52-year-old female with past medical history significant for squamous cell lung cancer, multiple episodes of pneumonia, and COPD, who was previously admitted to this institution on for pneumonia associated with her lung cancer, treated initially with ceftriaxone and azithromycin as well as steroids and aggressive pulmonary toileting with concerns of mucus plugging and inability to mobilize secretions. The patient was able to be tapered down from high dose Solu-Medrol to 60 mg of prednisone daily. The patient had a CTA at that time, which showed no pulmonary embolus, consolidation in the right middle and lower lobes with possible obstructing lesion in the bronchi as well as mediastinal adenopathy consistent with previous exams as well as adrenal mass unchanged from previous exam. The patient had up to that point been on chemotherapy consisting of docetaxel, which she received 2/6 palliative doses. The patient was previously on prednisone for colitis associated with durvalumab and was able to be tapered down to 20 mg of prednisone, but with that tapering developed severe respiratory distress. The patient improved while in the hospital and was discharged home on 11/20/17 on 60 mg of prednisone daily as well as Levaquin for 7 days at 750 mg daily. The patient states that since she was discharged, she has had continued cough, difficulty breathing, pain in her low chest/upper abdomen, stabbing, which she describes as aching with sharp pains when she coughs and no improvement with her shortness of breath, being unable to take more than a couple of steps without getting short of breath. The patient was restarted on Lovenox at discharge and has been taking it daily. The patient finished her antibiotic on 11/26/17 and had no improvement. The patient was still feeling she had difficulty mobilizing her secretions. The patient has not had any more chemotherapy and is unable to follow up with Dr. Mcneill. She has an appointment this coming Wednesday. The patient's chemotherapy is currently on hold due to pneumonia. The patient returned to the emergency department due to the lack of improvement and severe pain. The patient had a chest x-ray, which was read as postobstructive pneumonitis with effusion on right side with right middle and lower lobe infiltrate. We were asked to evaluate for admission due to nonresolving pneumonia in the setting of lung cancer and possible COPD exacerbation. PAST MEDICAL HISTORY: Metastatic squamous cell lung cancer, on palliative chemotherapy; GI Bleed with Enteritis and hepatitis secondary to chemotherapy; recurrent pneumonia; hypertension; COPD; history of PE in 2018. PAST SURGICAL HISTORY: Teeth removal, 2017; cholecystectomy, 2014; hysterectomy , 2010; bronchoscopy. MEDICATIONS: Prior to admission: 1. Multivitamin 1 tab p.o. daily. 2. Lisinopril 10 mg p.o. q.a.m. 3. Albuterol 2 puffs inhalation q.4 hours as needed. 4. Mucinex 1200 mg p.o. b.i.d. 5. Albuterol 2.5 mg inhalation q.6 hours as needed. 6. Duloxetine 60 mg p.o. daily. 7. Lovenox 120 mg p.o. q.24 hours. 8. Prednisone 60 mg p.o. daily. 9. Spiriva 1 cap inhalation daily. 10. Oxycodone 5 mg p.o. q.6 hours as needed. ALLERGIES: TAXOL. FAMILY HISTORY: The patient's mother is alive and has diabetes and hypertension. The patient's father in a car accident and had no known health problems. The patient has a brother and a sister both of whom have hypertension and no other health problems. SOCIAL HISTORY: The patient has a 40-pack year history of smoking tobacco. The patient does not drink alcohol. The patient does not use illicit drugs. 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 The patient is . The patient has 1 child, who is getting on 12/03/17. The patient would like her healthcare proxy to be her , You Santiago. REVIEW OF SYSTEMS: A 14-point review of systems was reviewed and is negative except as above. PHYSICAL EXAMINATION GENERAL: The patient is a 52-year-old female, who is sitting in the bed, in moderate distress from increased work of breathing. HEENT: Head: Normocephalic, atraumatic. Sclerae anicteric. No conjunctival injection. Nasal mucosa moist. Oral mucosa moist. No pharyngeal erythema, discharge, or exudate. NECK: Supple, nontender. No lymphadenopathy. No carotid bruits auscultated. No JVD. RESPIRATORY: Left-sided exam has coarse rhonchi throughout with moderate expiratory wheezing. Right lung shows diminished breath sounds in the lower lobes with rhonchi and wheezing throughout. Positive egophony in the bilateral lower lobes and right middle lobe. CARDIAC: Tachycardic. No clicks, murmurs, gallops, or rubs. Pulses are 2+ in the bilateral dorsalis pedis, posterior tibial, and radial areas. No bilateral lower extremity edema or calf tenderness noted. ABDOMEN: Soft, nontender, nondistended. Bowel sounds present and normoactive in all 4 quadrants. No hepatosplenomegaly. No abdominal bruits auscultated. No hepatojugular reflux. GENITOURINARY: No suprapubic or CVA tenderness. NEURO: Cranial nerves II through XII intact. No focal deficits. Alert and oriented x3. PSYCHIATRIC: Pleasant and cooperative. SKIN: Clean, dry, intact. No rash. DIAGNOSTIC STUDIES/LAB DATA: White blood cell count 16.4, hemoglobin 11.2, platelet count 375. ABG: pH is 7.45, PCO2 of 38, PO2 of 86, HCO3 is 27.6, oxygen saturation is 98.1%, base excess 2.3. Sodium 141, potassium 3.7, chloride 107, carbon dioxide 26, anion gap 8, BUN 20, creatinine 0.81, glucose 108, lactic acid 1.3, calcium 9.3. Bilirubin 0.3, AST 16, ALT 23, alkaline phosphatase 52. Creatine kinase 27, CK-MB 1.6. Troponin I 0.01. CRP 37.81. BNP 37. Protein 6.4, albumin 3.8, globulin 2.6. Procalcitonin less than 0.1. Studies: Chest x-ray read as suspect postobstructive pneumonitis with effusion. Electrocardiogram from 11/28/17 read as normal sinus rhythm, QTc of 466, rate of 99, mild ST-segment elevation in II, III, and aVF consistent with previous exam, early repolarization in V2 and V3. No hypertrophy or enlargement. No other abnormalities. ASSESSMENT AND PLAN/IMPRESSION: Ms. Santiago is a 52-year-old female with past medical history significant for squamous cell lung cancer, chronic obstructive pulmonary disease, and recurrent episodes of pneumonia, who was previously admitted to this institution until 11/20/17 with postobstructive pneumonia. The patient improved while in the hospital, but then continued to have severe shortness of breath as well as uncontrolled pain and cough as outpatient with no improvement on outpatient antibiotics. The patient has returned to the hospital with persistent infiltrate on exam as well as elevated blood cell count , tachycardia, and tachypnea meeting sepsis criteria. 1. Lung cancer, chronic obstructive pulmonary disease exacerbation, possible hospital-acquired pneumonia. The patient was previously admitted to this institution and treated for community-acquired pneumonia with postobstructive community-acquired pneumonia related to her lung cancer, who improved and then was discharged on therapy with steroids and Levaquin. The patient failed to improve further on these medications and returned to the hospital with slight worsening in her infiltrate on chest x-ray as well as tachycardia, tachypnea, and elevated white blood cell count. The patient will be readmitted to the hospital and treated with vancomycin and Zosyn at this point due to possible treatment failure with Levaquin and recent hospitalization. The patient's procalcitonin was less than 0.1. The patient will also be given IV Solu-Medrol for likely concomitant chronic obstructive pulmonary disease exacerbation and for possible symptomatic treatment of her pneumonia. The patient will have a repeat procalcitonin drawn in the morning. If this remains negative, consideration for discontinuation of antibiotics should be made. The patient is not hypoxic. The patient received 30 mL bolus of normal saline as well as broad-spectrum antibiotic coverage while in the hospital due to meeting sepsis criteria. The patient has a negative lactic acid and no hypotension. Pulmonology consultation should be considered if the patient fails to improve with aggressive therapy being provided. The patient will have aggressive pulmonary toilet with flutter valve, MetaNeb, and guaifenesin. The patient will have sputum culture and urine antigens. We will not repeat CTA at this time due to the patient's anticoagulation and recent negative CTA of the chest. 2. History of gastrointestinal bleed and hepatitis related to chemotherapy. The patient has no evidence of hepatitis or gastrointestinal bleed at this time. The patient will be continued on Lovenox for DVT prophylaxis in the setting of active cancer. The patient will be monitored closely for gastrointestinal bleeding. The patient is mildly anemic consistent with her baseline. 3. Hypertension. Continue the patient's lisinopril. 4. Depression, anxiety. The patient will be continued on duloxetine. 5. Uncontrolled pain. The patient has significant uncontrolled pain probably related to her metastatic cancer. The patient will be aggressively treated with morphine and Percocet while in the hospital. 6. FEN. The patient will have a regular unrestricted diet and fluids as above for sepsis. 7. DVT prophylaxis. The patient will be on full-dose Lovenox. The patient is a very high risk. 8. Code status. The patient would like to be a full code. The patient would like her surrogate decision maker to be her , You Santiago, as above. TIME SPENT: Approximately 75 minutes was spent on this admission, 30 of which was spent [id number] with the patient obtaining history and physical and discussing treatment plan. This plan was discussed with my attending, Dr. Riya Scherer, and she is in agreement. KWESI CHAHAL [id number]/[facility] #: [id number] TRU
[2017-11-28] MEDS ORDERED: HYDROmorphone INJ* 0.5 MG/0.5 ML SYRINGE IV SLOW PU PRN (15:14)
[2017-11-28] MEDS: Albuterol/Ipratropium NEB.SOL* Albuterol 2.5 MG/Ipratropium 0.5 MG 3 ML INH SCH ×3 (15:16→23:38)
[2017-11-28] MEDS ORDERED: Vancomycin per Pharmacy* NOTE FOLLOW UP PRN (16:47)
[2017-11-28] MEDS: ZOSYN 3.375 GM Q8H per EXTENDED INFUSION IVPB SCH ×2 (18:29)
[2017-11-28] MEDS: HYDROmorphone INJ* 0.5 MG/0.5 ML SYRINGE IV SLOW PU PRN (18:38)
[2017-11-28 19:44] LABS: Urine Appearance Clear; Urine Blood Negative (Negative); Urine Color Yellow; Urine Ketones Negative (Negative); Urine Protein Negative (Negative); Urine Specific Gravity 1.021 (1.010-1.030); Urine Urobilinogen Negative (Negative)
[2017-11-28] MEDS: Mometasone/Formoter 200/5 MDI INH SCH (19:48)
[2017-11-28] MEDS: methylPREDNISolone 125 MG* 2 ML VIAL IV SCH (19:49)
[2017-11-28] MEDS: guaiFENesin ER TAB 600 MG PO SCH (22:27)
[2017-11-29] MEDS: HYDROmorphone INJ* 0.5 MG/0.5 ML SYRINGE IV SLOW PU PRN ×4 (00:04→17:01)
[2017-11-29] MEDS: Vancomycin(*) 1,000 MG in NS 0.9% 250 ML* 250 ML IVPB SCH ×2 (00:14→07:40)
[2017-11-29] MEDS: ZOSYN 3.375 GM Q8H per EXTENDED INFUSION IVPB SCH ×6 (02:07→19:15)
[2017-11-29] MEDS: Albuterol/Ipratropium NEB.SOL* Albuterol 2.5 MG/Ipratropium 0.5 MG 3 ML INH SCH ×4 (03:37→19:34)
[2017-11-29 05:59] LABS: ABS Basophils 0 10^3/ul (0-0.2); ABS Eosinophils 0 10^3/ul (0-0.6); ABS Lymphocytes 0.6 10^3/ul (1.0-4.8); ABS Monocytes 0.2 10^3/ul (0-0.8); ABS Neutrophils 16.8 10^3/ul (1.5-7.7); ABS Nucleated RBC 0.1 10^3/ul; Hematocrit 39 % (35-47); Hemoglobin 12.9 g/dl (12.0-16.0); Mean Corpuscular HGB Conc 33 g/dl (31-36); Mean Corpuscular Hemoglobin 28 pg (27-31); Mean Corpuscular Volume 84 fL (80-97); Mean Platelet Volume 7.9 um3 (7.4-10.4); Platelet Count 166 10^3/ul (150-450); Red Blood Count 4.67 10^6/ul (4.00-5.40); Red Cell Distribution Width 17 % (10.5-15); White Blood Count 17.7 10^3/ul (3.5-10.8)
[2017-11-29 06:29] LABS: EGFR Non-African American 25.5 (>60)
[2017-11-29 06:58] LABS: ABS Basophils 0 10^3/ul (0-0.2); Monocytes % 5 % (0-7)
[2017-11-29] MEDS: methylPREDNISolone 125 MG* 2 ML VIAL IV SCH ×2 (07:27→21:48)
[2017-11-29] MEDS: Omeprazole CAP* 20 MG PO SCH ×2 (07:40→21:49)
[2017-11-29] MEDS: Lisinopril TAB* 10 MG PO SCH (07:40)
[2017-11-29] MEDS: guaiFENesin ER TAB 600 MG PO SCH ×2 (07:40→21:48)
[2017-11-29] MEDS: DULoxetine DR CAP* 60 MG CAP.DR PO SCH (07:43)
[2017-11-29] MEDS: Mometasone/Formoter 200/5 MDI INH SCH ×2 (07:46→19:34)
[2017-11-29] MEDS: Tiotropium CAP.INH* CAP.INH/18 MCG (USE ORDER SET !) INH SCH (07:48)
--- NOTE | 2017-11-29 09:19 | PN ---
Progress Note - Progress Note Date of Service: 11/29/17 SOAP: Subjective: []Feeling better than yesterday. Breathing less labored and she feels like she isn't as wheezy. Has a good understanding of current admission and dx. Still not bringing any secretions up, "I get it to here (points at sternum), but can't get it out." Glad to in the hospital as she was really struggling at home, but is adamant that she will be d/c'd by Wednesday due to Son's wedding Sat. 12/04 (at her house). Family at bedside. Medications: Acetaminophen (Tylenol Tab*) 650 mg PO Q6H PRN PRN Reason: FEVER/PAIN Albuterol (Ventolin 2.5 Mg/3 Ml Neb.Sariah*) 2.5 mg INH Q2H PRN PRN Reason: SOB/WHEEZING Albuterol/Ipratropium (Duoneb (Albuterol 2.5 Mg/Ipratropium 0.5 Mg)) 1 neb INH [id number] AWAKE [facility] Last Admin: 11/29/17 07:46 Dose: 1 neb Benzonatate (Tessalon Cap*) 100 mg PO BID PRN PRN Reason: COUGH Last Admin: 11/28/17 14:38 Dose: 100 mg Device (Tiotropium Inhaler Device*) 1 each .SEE ORDER .USE w/ SPIRIVA CAPS [facility] Duloxetine HCl (Cymbalta Cap*) 60 mg PO DAILY [facility] Last Admin: 11/29/17 07:43 Dose: 60 mg Enoxaparin Sodium (Lovenox(*)) 120 mg SUBCUT Q24H [facility] Last Admin: 11/28/17 14:03 Dose: 120 mg Guaifenesin (Mucinex*) 1,200 mg PO BID [facility] Last Admin: 11/29/17 07:40 Dose: 1,200 mg Hydromorphone HCl (Dilaudid Inj*) 2 mg IV SLOW PU Q4H PRN PRN Reason: PAIN Last Admin: 11/29/17 06:15 Dose: 2 mg Piperacillin Sod/Tazobactam (Sod 3.375 gm/ Sodium Chloride) 100 mls @ 25 mls/ hr IVPB Q8H [facility] Last Admin: 11/29/17 02:07 Dose: 25 mls/hr Lisinopril (Prinivil Tab*) 10 mg PO QAM [facility] Last Admin: 11/29/17 07:40 Dose: 10 mg Methylprednisolone Sodium Succinate (Solu-Medrol 125mg *) 60 mg IV Q12H [facility] Last Admin: 11/29/17 07:27 Dose: 60 mg Mometasone Furoate/Formoterol Fumar (Dulera 200/5 Mdi*) 2 puff INH BID [facility] Last Admin: 11/29/17 07:46 Dose: 2 puff Omeprazole (Prilosec Cap*) 20 mg PO BID [facility] Last Admin: 11/29/17 07:40 Dose: 20 mg Ondansetron HCl (Zofran Inj*) 4 mg IV Q6H PRN PRN Reason: NAUSEA Oxycodone/Acetaminophen (Percocet 5/325 Tab*) 2 tab PO Q6H PRN PRN Reason: PAIN Last Admin: 11/28/17 14:03 Dose: 2 tab Pharmacy Consult (Zosyn Per Pharmacy*) 1 note FOLLOW UP .ZOSYN PER PHARMACY [facility] Pharmacy Consult (Vancomycin Per Pharmacy*) 1 note FOLLOW UP . PRN PRN Reason: PER PROTOCOL Tiotropium [place] (Spiriva Cap.Inh*) 1 cap INH DAILY [facility] Last Admin: 11/29/17 07:48 Dose: 1 cap Objective: [] Vital Signs Temp Pulse Resp BP Pulse Ox 98.0 F 80 16 129/85 95 11/29/17 07:38 11/29/17 07:51 11/29/17 07:51 11/29/17 07:38 11/29/17 07:51 A&Ox3, EOMI, neuro grossly non-focal HRR, S1S2 LS with rhonchi L>R and scattered exp. wheeze, mild tachypnea with some use of accessory muscles +BS, abd. soft and non-tender Selina-oid appearance Laboratory Results - last 24 hr 11/28/17 11/28/17 11/28/17 10:37 10:37 10:37 WBC 16.4 H RBC 3.81 L Hgb 11.2 L Hct 34 L MCV 88 MCH 30 MCHC 33 RDW 18 H Plt Count 345 MPV 6.2 L Neut % (Auto) 85.1 H Lymph % (Auto) 7.3 L [place] % (Auto) 7.3 H Eos % (Auto) 0 Baso % (Auto) 0.3 Absolute Neuts (auto) 13.9 H Absolute Lymphs (auto) 1.2 Absolute Monos (auto) 1.2 H Absolute Eos (auto) 0 Absolute Basos (auto) 0.1 Absolute Nucleated RBC 0.1 Immature Gran % Neutrophils % Band Neutrophils % Lymphocytes % Monocytes % Eosinophils % Basophils % Metamyelocytes % Myelocytes % Nucleated RBC % 0.4 Abs Neuts (Manual) Abs Lymphs (Manual) Abs Monocytes (Manual) Absolute Eos (Manual) Abs Basophils (Manual) Nucleated RBCs/100 WBC Normal RBC Morphology Polychromasia ABG pH ABG pCO2 ABG pO2 ABG HCO3 ABG O2 Saturation ABG Base Excess Sodium 141 Potassium 3.7 Chloride 107 Carbon Dioxide 26 Anion Gap 8 BUN 20 Creatinine 0.81 Est GFR ( Amer) 90.2 Est GFR (Non-Af Amer) 74.5 BUN/Creatinine Ratio 24.7 H Glucose 109 H Lactic Acid Calcium 9.3 Magnesium Total Bilirubin 0.30 AST 16 ALT 23 Alkaline Phosphatase 52 Total Creatine Kinase 27 CK-MB (CK-2) 1.6 Troponin I 0.01 C-Reactive Protein 37.81 H B-Natriuretic Peptide 37 Total Protein 6.4 Albumin 3.8 Globulin 2.6 Albumin/Globulin Ratio 1.5 Procalcitonin Urine Color Urine Appearance Urine pH Ur Specific [place] Urine Protein Urine Ketones Urine Blood Urine Nitrate Urine Bilirubin Urine Urobilinogen Ur Leukocyte Esterase Urine Glucose 11/28/17 11/28/17 11/28/17 10:38 10:41 11:40 WBC RBC Hgb Hct MCV MCH MCHC RDW Plt Count MPV Neut % (Auto) Lymph % (Auto) [place]cock % (Auto) Eos % (Auto) Baso % (Auto) Absolute Neuts (auto) Absolute Lymphs (auto) Absolute Monos (auto) Absolute Eos (auto) Absolute Basos (auto) Absolute Nucleated RBC Immature Gran % Neutrophils % Band Neutrophils % Lymphocytes % Monocytes % Eosinophils % Basophils % Metamyelocytes % Myelocytes % Nucleated RBC % Abs Neuts (Manual) Abs Lymphs (Manual) Abs Monocytes (Manual) Absolute Eos (Manual) Abs Basophils (Manual) Nucleated RBCs/100 WBC Normal RBC Morphology Polychromasia ABG pH 7.45 ABG pCO2 38 ABG pO2 86 ABG HCO3 26.7 ABG O2 Saturation 98.1 H ABG Base Excess 2.3 H Sodium Potassium Chloride Carbon Dioxide Anion Gap BUN Creatinine Est GFR ( Amer) Est GFR (Non-Af Amer) BUN/Creatinine Ratio Glucose Lactic Acid 1.3 Calcium Magnesium Total Bilirubin AST ALT Alkaline Phosphatase Total Creatine Kinase CK-MB (CK-2) Troponin I C-Reactive Protein B-Natriuretic Peptide Total Protein Albumin Globulin Albumin/Globulin Ratio Procalcitonin < 0.1 Urine Color Urine Appearance Urine pH Ur Specific [place] Urine Protein Urine Ketones Urine Blood Urine Nitrate Urine Bilirubin Urine Urobilinogen Ur Leukocyte Esterase Urine Glucose 11/28/17 11/29/17 11/29/17 19:30 05:10 05:10 WBC 17.7 H RBC 4.67 Hgb 12.9 Hct 39 MCV 84 MCH 28 MCHC 33 RDW 17 H Plt Count 166 MPV 7.9 Neut % (Auto) Not Reportable Lymph % (Auto) Not Reportable Glasscock % (Auto) Not Reportable Eos % (Auto) Not Reportable Baso % (Auto) Not Reportable Absolute Neuts (auto) 16.8 H Absolute Lymphs (auto) 0.6 L Absolute Monos (auto) 0.2 Absolute Eos (auto) 0 Absolute Basos (auto) 0 Absolute Nucleated RBC 0.1 Immature Gran % 53 H Neutrophils % 34 L Band Neutrophils % 46 H Lymphocytes % 8 L Monocytes % 5 Eosinophils % 0 Basophils % 0 Metamyelocytes % 3 H Myelocytes % 4 H Nucleated RBC % Not Reportable Abs Neuts (Manual) 6.0 Abs Lymphs (Manual) 1.4 Abs Monocytes (Manual) 0.9 H Absolute Eos (Manual) 0 Abs Basophils (Manual) 0 Nucleated RBCs/100 WBC 1 H Normal RBC Morphology Not Reportable Polychromasia 1+ ABG pH ABG pCO2 ABG pO2 ABG HCO3 ABG O2 Saturation ABG Base Excess Sodium 136 Potassium 4.6 Chloride 112 H Carbon Dioxide 16 L Anion Gap 8 BUN 59 H Creatinine 2.05 H Est GFR ( Amer) 30.9 Est GFR (Non-Af Amer) 25.5 BUN/Creatinine Ratio 28.8 H Glucose 244 H Lactic Acid Calcium 8.0 L Magnesium 2.3 Total Bilirubin AST ALT Alkaline Phosphatase Total Creatine Kinase CK-MB (CK-2) Troponin I C-Reactive Protein B-Natriuretic Peptide Total Protein Albumin Globulin Albumin/Globulin Ratio Procalcitonin Urine Color Yellow Urine Appearance Clear Urine pH 5.0 Ur Specific [place] 1.021 Urine Protein Negative Urine Ketones Negative Urine Blood Negative Urine Nitrate Negative Urine Bilirubin Negative Urine Urobilinogen Negative Ur Leukocyte Esterase Negative Urine Glucose 2+(150 mg/dl) A 11/29/17 05:10 WBC RBC Hgb Hct MCV MCH MCHC RDW Plt Count MPV Neut % (Auto) Lymph % (Auto) [place] % (Auto) Eos % (Auto) Baso % (Auto) Absolute Neuts (auto) Absolute Lymphs (auto) Absolute Monos (auto) Absolute Eos (auto) Absolute Basos (auto) Absolute Nucleated RBC Immature Gran % Neutrophils % Band Neutrophils % Lymphocytes % Monocytes % Eosinophils % Basophils % Metamyelocytes % Myelocytes % Nucleated RBC % Abs Neuts (Manual) Abs Lymphs (Manual) Abs Monocytes (Manual) Absolute Eos (Manual) Abs Basophils (Manual) Nucleated RBCs/100 WBC Normal RBC Morphology Polychromasia ABG pH ABG pCO2 ABG pO2 ABG HCO3 ABG O2 Saturation ABG Base Excess Sodium Potassium Chloride Carbon Dioxide Anion Gap BUN Creatinine Est GFR ( Amer) Est GFR (Non-Af Amer) BUN/Creatinine Ratio Glucose Lactic Acid Calcium Magnesium Total Bilirubin AST ALT Alkaline Phosphatase Total Creatine Kinase CK-MB (CK-2) Troponin I C-Reactive Protein B-Natriuretic Peptide Total Protein Albumin Globulin Albumin/Globulin Ratio Procalcitonin 1.7 H Urine Color Urine Appearance Urine pH Ur Specific [place] Urine Protein Urine Ketones Urine Blood Urine Nitrate Urine Bilirubin Urine Urobilinogen Ur Leukocyte Esterase Urine Glucose Assessment: []52 yo with recurrent NSCLC s/p C2 Docetaxel (D19 today) admitted with recurrent PNA (discharged 10 days ago). Plan: []1. Recurrent PNA: post obstructive and I suspect it was only partially tx.'d before due to severity of COPD as well. At this time I would like to stop the Vancomycin as she has had an increase in her Cr. and while hospital acquired pneumonia possible I feel it is less likely. I will ask Dr. Juan to consult as she follows Ms. Santiago as an outpatient and we would appreciate her input on management of her COPD 2. COPD exacerbation: cont. solumedrol, cont. nebs, limited help from prior chest PT so will hold off on that unless Dr. Juan recommends 3. NATHALIE: likely 2/2 vanco, will give IV fluids overnight and recheck Cr in AM 4. History of PE: cont. full dose Lovenox
[2017-11-29] MEDS: Lactobacillus Acidophilus* 1 TAB PO SCH (10:47)
[2017-11-29] MEDS ORDERED: Vancomycin Trough Check NOTE FOLLOW UP ONE (15:30)
[2017-11-29] MEDS: Enoxaparin(*) 150 MG/ML 1 ML SYRINGE SUBCUT SCH (15:53)
[2017-11-29] MEDS: NS 0.9% 1000 ML* 1,000 ML IV SCH (16:00)
[2017-11-29] MEDS: oxyCODONE/Acetamin 5/325 MG* TAB PO PRN (21:48)
[2017-11-30] MEDS: Albuterol/Ipratropium NEB.SOL* Albuterol 2.5 MG/Ipratropium 0.5 MG 3 ML INH SCH ×4 (01:47→17:34)
[2017-11-30] MEDS: ZOSYN 3.375 GM Q8H per EXTENDED INFUSION IVPB SCH ×6 (02:13→17:40)
[2017-11-30] MEDS: HYDROmorphone INJ* 0.5 MG/0.5 ML SYRINGE IV SLOW PU PRN ×4 (04:38→23:01)
[2017-11-30 05:59] LABS: Hematocrit 29 % (35-47); Hemoglobin 9.5 g/dl (12.0-16.0); Mean Corpuscular HGB Conc 33 g/dl (31-36); Mean Corpuscular Hemoglobin 29 pg (27-31); Mean Corpuscular Volume 90 fL (80-97); Mean Platelet Volume 6.4 um3 (7.4-10.4); Platelet Count 281 10^3/ul (150-450); Red Blood Count 3.26 10^6/ul (4.00-5.40); Red Cell Distribution Width 18 % (10.5-15); White Blood Count 20.2 10^3/ul (3.5-10.8)
[2017-11-30 06:13] LABS: EGFR Non-African American 77.9 (>60)
[2017-11-30 06:20] LABS: ABS Basophils 0 10^3/ul (0-0.2); ABS Neutrophils 18.8 10^3/ul (1.5-7.7); Monocytes % 4 % (0-7)
[2017-11-30] MEDS: Tiotropium CAP.INH* CAP.INH/18 MCG (USE ORDER SET !) INH SCH (07:46)
[2017-11-30] MEDS: Mometasone/Formoter 200/5 MDI INH SCH ×2 (07:46→19:47)
[2017-11-30] MEDS: guaiFENesin ER TAB 600 MG PO SCH ×2 (09:08→20:30)
[2017-11-30] MEDS: DULoxetine DR CAP* 60 MG CAP.DR PO SCH (09:08)
[2017-11-30] MEDS: Omeprazole CAP* 20 MG PO SCH ×2 (09:08→21:43)
[2017-11-30] MEDS: methylPREDNISolone 125 MG* 2 ML VIAL IV SCH ×2 (09:08→20:36)
[2017-11-30] MEDS: Lactobacillus Acidophilus* 1 TAB PO SCH (09:09)
[2017-11-30] MEDS: Lisinopril TAB* 10 MG PO SCH (09:09)
--- NOTE | 2017-11-30 09:42 | RAD ---
HISTORY: PNA f/u COMPARISONS: November 28, 2017 VIEWS: 4: Frontal dual-energy and lateral views of the chest. FINDINGS: CARDIOMEDIASTINAL SILHOUETTE: The cardiomediastinal silhouette is normal. GUS: The gus are normal. PLEURA: There is blunting of the right costophrenic angle. LUNG PARENCHYMA: There is persistent confluent alveolar opacification of the right middle lobe and also the right lower lobe, without significant change from the previous examination. ABDOMEN: The upper abdomen is clear. There is no subphrenic gas. BONES AND SOFT TISSUES: No bone or soft tissue abnormalities are noted. OTHER: None. IMPRESSION: 1. STABLE CONSOLIDATION OF THE RIGHT MIDDLE AND LOWER LOBE. 2. SMALL RIGHT PLEURAL EFFUSION. 3. RECOMMEND FOLLOW-UP UNTIL RESOLUTION TO EXCLUDE UNDERLYING PULMONARY PARENCHYMAL PATHOLOGY. .
--- NOTE | 2017-11-30 09:59 | PN ---
Progress Note - Progress Note Date of Service: 11/30/17 SOAP: Subjective: []Feeling well. No change from yesterday, but not worse. Notes more wheezing. Still not bringing up anything. Chest feels tight, but no chest pain/ pressure. Gets winded with any activity (ex: showering this AM). Denies associated dizziness or feeling faint during SOB. Has been walking around unit. No GI upset. No urinary complaints. Medications: Acetaminophen (Tylenol Tab*) 650 mg PO Q6H PRN PRN Reason: FEVER/PAIN Albuterol (Ventolin 2.5 Mg/3 Ml Neb.Sariah*) 2.5 mg INH Q2H PRN PRN Reason: SOB/WHEEZING Albuterol/Ipratropium (Duoneb (Albuterol 2.5 Mg/Ipratropium 0.5 Mg)) 1 neb INH [id number] AWAKE [facility] Last Admin: 11/30/17 07:43 Dose: 1 neb Benzonatate (Tessalon Cap*) 100 mg PO BID PRN PRN Reason: COUGH Last Admin: 11/28/17 14:38 Dose: 100 mg Device (Tiotropium Inhaler Device*) 1 each .SEE ORDER .USE w/ SPIRIVA CAPS [facility] Duloxetine HCl (Cymbalta Cap*) 60 mg PO DAILY [facility] Last Admin: 11/30/17 09:08 Dose: 60 mg Enoxaparin Sodium (Lovenox(*)) 120 mg SUBCUT Q24H [facility] Last Admin: 11/29/17 15:53 Dose: 120 mg Guaifenesin (Mucinex*) 1,200 mg PO BID [facility] Last Admin: 11/30/17 09:08 Dose: 1,200 mg Hydromorphone HCl (Dilaudid Inj*) 2 mg IV SLOW PU Q4H PRN PRN Reason: PAIN Last Admin: 11/30/17 04:38 Dose: 2 mg Piperacillin Sod/Tazobactam (Sod 3.375 gm/ Sodium Chloride) 100 mls @ 25 mls/ hr IVPB Q8H [facility] Last Admin: 11/30/17 02:13 Dose: 25 mls/hr Sodium Chloride (Ns 0.9% 1000 Ml*) 1,000 mls @ 100 mls/hr IV PER RATE [facility] Last Admin: 11/29/17 16:00 Dose: 100 mls/hr Lactobacillus Rhamnosus (Lactobacillus Acidophilus*) 1 tab PO DAILY [facility] Last Admin: 11/30/17 09:09 Dose: 1 tab Lisinopril (Prinivil Tab*) 10 mg PO QAM [facility] Last Admin: 11/30/17 09:09 Dose: 10 mg Methylprednisolone Sodium Succinate (Solu-Medrol 125mg *) 60 mg IV Q12H [facility] Last Admin: 11/30/17 09:08 Dose: 60 mg Mometasone Furoate/Formoterol Fumar (Dulera 200/5 Mdi*) 2 puff INH BID [facility] Last Admin: 11/30/17 07:46 Dose: 2 puff Omeprazole (Prilosec Cap*) 20 mg PO BID [facility] Last Admin: 11/30/17 09:08 Dose: 20 mg Ondansetron HCl (Zofran Inj*) 4 mg IV Q6H PRN PRN Reason: NAUSEA Oxycodone/Acetaminophen (Percocet 5/325 Tab*) 2 tab PO Q6H PRN PRN Reason: PAIN Last Admin: 11/29/17 21:48 Dose: 2 tab Pharmacy Consult (Zosyn Per Pharmacy*) 1 note FOLLOW UP .ZOSYN PER PHARMACY [facility] Tiotropium [place] (Spiriva Cap.Inh*) 1 cap INH DAILY [facility] Last Admin: 11/30/17 07:46 Dose: 1 cap Objective: [] Vital Signs Temp Pulse Resp BP Pulse Ox 98.0 F 90 90 149/95 98 11/30/17 07:44 11/30/17 07:48 11/30/17 07:48 11/30/17 07:44 11/30/17 07:48 A&Ox3, EOMI, neuro grossly non-focal, ELISE HRR, S1S2 LS with wheeze throughout, dim. bases +BS, abd. soft and non-tender +PP=bilat., no edema noted Laboratory Results - last 24 hr 11/30/17 11/30/17 05:30 05:30 WBC 20.2 H RBC 3.26 L Hgb 9.5 L Hct 29 L MCV 90 MCH 29 MCHC 33 RDW 18 H Plt Count 281 MPV 6.4 L Neut % (Auto) Not Reportable Lymph % (Auto) Not Reportable Barnes % (Auto) Not Reportable Eos % (Auto) Not Reportable Baso % (Auto) Not Reportable Absolute Neuts (auto) 18.8 H Absolute Lymphs (auto) Not Reportable Absolute Monos (auto) Not Reportable Absolute Eos (auto) Not Reportable Absolute Basos (auto) Not Reportable Absolute Nucleated RBC Not Reportable Immature Gran % 2 Neutrophils % 89 H Band Neutrophils % 2 Lymphocytes % 4 L Monocytes % 4 Eosinophils % 1 Basophils % 0 Nucleated RBC % Not Reportable Abs Neuts (Manual) 18.0 H Abs Lymphs (Manual) 0.8 L Abs Monocytes (Manual) 0.8 Absolute Eos (Manual) 0.2 Abs Basophils (Manual) 0 Normal RBC Morphology Not Reportable Anisocytosis 1+ Sodium 137 Potassium TNP Chloride 106 Carbon Dioxide 26 Anion Gap 5 BUN 20 Creatinine 0.78 Est GFR ( Amer) 94.2 Est GFR (Non-Af Amer) 77.9 BUN/Creatinine Ratio 25.6 H Glucose 140 H Calcium 8.8 Total Bilirubin 0.30 AST TNP ALT 22 Alkaline Phosphatase 43 Total Protein 6.0 L Albumin 3.4 Globulin 2.6 Albumin/Globulin Ratio 1.3 Assessment: []52 yo with recurrent NSCLC s/p C2 Docetaxel (D20 today) admitted with recurrent PNA improving on Zoysn. Plan: []1. PNA: likely post obstruction, will request consult from ID today re: step down therapy and management as outpatient - eval. ambulatory O2 needs, repeat CXR in 2 days 2. COPD: pulmonary not available at this time, but appears to be doing OK. Increase wheeze with less rhonchi and will increase nebs today 3. NSCLC: delay chemo x1 week with re-eval. as outpatient next week before C3, plan imaging /p C3 Disposition: inpt. d/t IV abx. and neb. tx.'s, d/c dependent on recovery, goal of home by end of week d/t family wedding
[2017-11-30] MEDS: Enoxaparin(*) 150 MG/ML 1 ML SYRINGE SUBCUT SCH (14:12)
--- NOTE | 2017-11-30 16:59 | CONS ---
CONSULTATION REPORT: DATE OF CONSULT: 11/30/17 REQUESTING PROVIDER: Mayte Oh NP CONSULTING SERVICE: Infectious Disease. REASON FOR CONSULT: Pneumonia. IMPRESSION: 1. Pneumonia, likely postobstructive, right middle and lower lobes by imaging with persistent symptoms since mid October. Has had improvement at that time and now while on IV antibiotics and high dose corticosteroids and then had worsening of symptoms as the corticosteroids tapered. This is likely polymicrobial including normal oral rebecca. I think a methicillin-resistant Staph aureus infection less likely. 2. Squamous cell lung cancer has been treated with radiation and now chemotherapy. 3. 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 4. Pulmonary embolus. RECOMMENDATIONS: Continue Zosyn while she is here and then, we will plan on Augmentin 500 mg by mouth twice a day for 3 weeks with followup chest x-ray in about 2 weeks. We will plan on a very slow taper of corticosteroids. HISTORY OF PRESENT ILLNESS: This is a 52-year-old woman with squamous cell lung cancer, on chemotherapy, admitted with pneumonia. She was originally admitted mid October with some cough, which was nonproductive and without blood; severe shortness of breath including at rest and wheeze. She was started on IV steroids, antibiotics, which were ceftriaxone and azithromycin. She was discharged home on prednisone and Levaquin. A few days after finishing the antibiotics and as the corticosteroids tapered, she had return of right-sided chest pain, back pain, feverish feeling, chills, and dyspnea, so she came back to the hospital on 11/28/17. She was afebrile, saturating in mid 90s, but tachypneic. She was given supplemental oxygen, restarted on vancomycin and Zosyn and corticosteroids through the IV. Blood cultures sent were negative. Urine Legionella and pneumococcal antigens were negative. A chest CT back on showed consolidation in the right middle lobe and right lower lobe. A chest x-ray when she came back on 11/28/17 showed right middle lobe infiltrate. She is off supplemental oxygen now. Her white count was up to 16,000 when she came back down, from 6 when she left the hospital, it is up to 20,000 now back on the corticosteroids. She is afebrile. She still has a nonproductive cough and wheeze, but she is no longer short of breath at rest. She does have right- sided chest pain and mid and right back pain, worse with a deep breath and with movement. It has been there for about 2 weeks. PAST MEDICAL HISTORY: 1. Squamous cell lung cancer, has had radiation and now chemotherapy in the form of initially Taxol based therapy and durvalumab. 2. Immune-mediated colitis. 3. Obesity. 4. History of pulmonary embolus. 5. COPD. PAST SURGICAL HISTORY: 1. Status post cholecystectomy. 2. Status post hysterectomy. MEDICATIONS: 1. Tylenol. 2. Duloxetine. 3. Enoxaparin. 4. Guaifenesin. 5. Dilaudid as needed. 6. Lactobacillus. 7. Lisinopril. 8. Methylprednisolone 60 mg IV every 12 hours. 9. Omeprazole. 10. Zosyn 3.375 g IV every 8 hours. 11. Spiriva. ALLERGIES: To TAXOL. FAMILY HISTORY: No recurrent infections or tuberculosis. Father in motor vehicle accident. Mother is alive, has diabetes and high blood pressure. SOCIAL HISTORY: She lives in [place] with her family. She has no travel, no sick contacts. REVIEW OF SYSTEMS: All negative to a 14-point review of systems except as noted above in the history of present illness. PHYSICAL EXAM: Vital Signs: Temperature is 36.8, heart rate 70, respiratory rate 16, blood pressure 160/88, oxygen saturation 98% on room air at rest and 93 % on room air with ambulation. In general, she is awake, not in distress. There is an audible wheeze. HEENT: There is no conjunctival hemorrhage. Oropharynx is without lesions. Neck is supple without mass. Heart is regular rate and rhythm without murmurs, rubs, or gallops. Lungs: Expiratory wheeze in all lung presley. No rhonchi. Abdomen: Soft, nontender, nondistended. There are bowel sounds present. Skin: There is no rash or splinter hemorrhage. Musculoskeletal: There is no spine tenderness to palpation or right chest tenderness to palpation. LABORATORY DATA: White blood cell count 20, hemoglobin 9, platelets 281. Creatinine is 0.7. The C-reactive protein was 38 on admission. Please see impressions and recommendations as outlined above, which I have discussed with Mayte Oh NP. Thanks for asking me to see Ms. Santiago in consultation. [id number]/[facility] #: [id number] [facility]
[2017-11-30] MEDS: NS 0.9% 1000 ML* 1,000 ML IV SCH (17:40)
[2017-12-01] MEDS: Albuterol/Ipratropium NEB.SOL* Albuterol 2.5 MG/Ipratropium 0.5 MG 3 ML INH SCH ×4 (01:12→19:39)
[2017-12-01] MEDS: ZOSYN 3.375 GM Q8H per EXTENDED INFUSION IVPB SCH ×6 (02:07→18:08)
[2017-12-01] MEDS: oxyCODONE/Acetamin 5/325 MG* TAB PO PRN ×2 (02:30→19:01)
[2017-12-01] MEDS: Mometasone/Formoter 200/5 MDI INH SCH ×2 (07:13→19:39)
[2017-12-01] MEDS: Tiotropium CAP.INH* CAP.INH/18 MCG (USE ORDER SET !) INH SCH (07:14)
[2017-12-01] MEDS: Lisinopril TAB* 10 MG PO SCH (09:30)
[2017-12-01] MEDS: Omeprazole CAP* 20 MG PO SCH ×2 (09:30→20:06)
[2017-12-01] MEDS: Lactobacillus Acidophilus* 1 TAB PO SCH (09:30)
[2017-12-01] MEDS: guaiFENesin ER TAB 600 MG PO SCH ×2 (09:30→20:06)
[2017-12-01] MEDS: DULoxetine DR CAP* 60 MG CAP.DR PO SCH (09:30)
[2017-12-01] MEDS: methylPREDNISolone 125 MG* 2 ML VIAL IV SCH ×2 (09:30→20:05)
[2017-12-01] MEDS: HYDROmorphone INJ* 0.5 MG/0.5 ML SYRINGE IV SLOW PU PRN ×3 (09:59→20:10)
[2017-12-01] MEDS: Lidocaine PATCH 5%* 1 PATCH TRANSDERM SCH (11:06)
--- NOTE | 2017-12-01 11:26 | PN ---
Progress Note - Progress Note Date of Service: 12/01/17 SOAP: Subjective: [Reports some improvement in dyspnea. Saturating in low 90s on RA. Exercise tolerance improving. Still coughing frequently and requiring IV opiates for pain in her back associated with coughing and deep inspiration.] Objective: [ Laboratory Results - last 24 hr 12/01/17 07:02 Potassium 4.2 AST 12 L Acetaminophen (Tylenol Tab*) 650 mg PO Q6H PRN PRN Reason: FEVER/PAIN Albuterol (Ventolin 2.5 Mg/3 Ml Neb.Sariah*) 2.5 mg INH Q2H PRN PRN Reason: SOB/WHEEZING Last Admin: 11/30/17 15:31 Dose: 2.5 mg Albuterol/Ipratropium (Duoneb (Albuterol 2.5 Mg/Ipratropium 0.5 Mg)) 1 neb INH [id number] AWAKE [facility] Last Admin: 12/01/17 07:12 Dose: 1 neb Benzonatate (Tessalon Cap*) 100 mg PO BID PRN PRN Reason: COUGH Last Admin: 11/28/17 14:38 Dose: 100 mg Device (Tiotropium Inhaler Device*) 1 each .SEE ORDER .USE w/ SPIRIVA CAPS [facility] Duloxetine HCl (Cymbalta Cap*) 60 mg PO DAILY [facility] Last Admin: 12/01/17 09:30 Dose: 60 mg Enoxaparin Sodium (Lovenox(*)) 120 mg SUBCUT Q24H [facility] Last Admin: 11/30/17 14:12 Dose: 120 mg Guaifenesin (Mucinex*) 1,200 mg PO BID [facility] Last Admin: 12/01/17 09:30 Dose: 1,200 mg Hydromorphone HCl (Dilaudid Inj*) 2 mg IV SLOW PU Q4H PRN PRN Reason: PAIN Last Admin: 12/01/17 09:59 Dose: 2 mg Piperacillin Sod/Tazobactam (Sod 3.375 gm/ Sodium Chloride) 100 mls @ 25 mls/ hr IVPB Q8H [facility] Last Admin: 12/01/17 09:31 Dose: 25 mls/hr Lactobacillus Rhamnosus (Lactobacillus Acidophilus*) 1 tab PO DAILY [facility] Last Admin: 12/01/17 09:30 Dose: 1 tab Lidocaine (Lidoderm 5% Patch*) 1 patch TRANSDERM DAILY [facility] Last Admin: 12/01/17 11:06 Dose: 1 patch Lisinopril (Prinivil Tab*) 10 mg PO QAM [facility] Last Admin: 12/01/17 09:30 Dose: 10 mg Methylprednisolone Sodium Succinate (Solu-Medrol 125mg *) 60 mg IV Q12H [facility] Last Admin: 12/01/17 09:30 Dose: 60 mg Mometasone Furoate/Formoterol Fumar (Dulera 200/5 Mdi*) 2 puff INH BID [facility] Last Admin: 12/01/17 07:13 Dose: 2 puff Omeprazole (Prilosec Cap*) 20 mg PO BID [facility] Last Admin: 12/01/17 09:30 Dose: 20 mg Ondansetron HCl (Zofran Inj*) 4 mg IV Q6H PRN PRN Reason: NAUSEA Oxycodone/Acetaminophen (Percocet 5/325 Tab*) 2 tab PO Q6H PRN PRN Reason: PAIN Last Admin: 12/01/17 02:30 Dose: 2 tab Pharmacy Consult (Zosyn Per Pharmacy*) 1 note FOLLOW UP .ZOSYN PER PHARMACY [facility] Pharmacy Profile Note (Lidocaine Patch Remove*) 1 note N/A 2100 [facility] Tiotropium [place] (Spiriva Cap.Inh*) 1 cap INH DAILY [facility] Last Admin: 12/01/17 07:14 Dose: 1 cap Vital Signs: Temp Pulse Resp BP Pulse Ox 98.1 F 86 18 143/85 98 12/01/17 07:42 12/01/17 07:42 12/01/17 10:00 12/01/17 07:42 12/01/17 07:42 Exam: Gen: Chronically ill appearing 52 yo female in NAD, cushingoid appearance HEENT: MMM CV: RRR, no m/r/g Resp: diffuse wheezing and rhonchi Chest: some mild TTP over R posterior chest wall Abd: soft, nonTTP Ext: no LE edema Psych: alert and appropriate Assessment: []52 yo with recurrent NSCLC s/p C2 Docetaxel (D21 today) admitted with recurrent PNA improving on Zoysn. Plan: []1. PNA: likely post obstruction - ID consult is appreciated - plan to cont Zosyn and transition to Augmentin at discharge 2. COPD: - improvement in dyspnea, still significant wheeze on exam - back pain likely due to costocondritis v pleurisy - trial heat and lidocaine patch - cont IV steroids, slow taper at discharge 3. NSCLC: delay chemo x1 week with re-eval. as outpatient next week before C3, plan imaging s/p C3 Disposition: anticipate dc home in 1-2 days
[2017-12-01] MEDS: Enoxaparin(*) 150 MG/ML 1 ML SYRINGE SUBCUT SCH (14:58)
[2017-12-01] MEDS: Benzonatate CAP* 100 MG PO PRN (20:06)
[2017-12-02] MEDS: Albuterol/Ipratropium NEB.SOL* Albuterol 2.5 MG/Ipratropium 0.5 MG 3 ML INH SCH ×4 (00:56→19:40)
[2017-12-02] MEDS: Lidocaine Patch REMOVE* 1 NOTE MISC SCH ×2 (01:00→19:58)
[2017-12-02] MEDS: ZOSYN 3.375 GM Q8H per EXTENDED INFUSION IVPB SCH ×6 (02:44→18:06)
[2017-12-02] MEDS: HYDROmorphone INJ* 0.5 MG/0.5 ML SYRINGE IV SLOW PU PRN ×4 (04:06→22:12)
[2017-12-02] MEDS: Mometasone/Formoter 200/5 MDI INH SCH ×2 (07:23→19:46)
[2017-12-02] MEDS: Tiotropium CAP.INH* CAP.INH/18 MCG (USE ORDER SET !) INH SCH (07:24)
[2017-12-02] MEDS: Lactobacillus Acidophilus* 1 TAB PO SCH (08:05)
[2017-12-02] MEDS: Lidocaine PATCH 5%* 1 PATCH TRANSDERM SCH (08:05)
[2017-12-02] MEDS: methylPREDNISolone 125 MG* 2 ML VIAL IV SCH (08:05)
[2017-12-02] MEDS: Lisinopril TAB* 10 MG PO SCH (08:06)
[2017-12-02] MEDS: guaiFENesin ER TAB 600 MG PO SCH ×2 (08:06→19:55)
[2017-12-02] MEDS: Omeprazole CAP* 20 MG PO SCH ×2 (08:06→19:56)
[2017-12-02] MEDS: DULoxetine DR CAP* 60 MG CAP.DR PO SCH (08:06)
--- NOTE | 2017-12-02 10:48 | PN ---
Progress Note - Progress Note Date of Service: 12/02/17 SOAP: Subjective: [Feeling better today. Pain is better controlled in R side with coughing, but still requiring occasional IV dilaudid. Dyspnea/wheezing improving. No new complaints] Objective: [ Vital Signs: Temp Pulse Resp BP Pulse Ox 97.5 F 92 18 152/72 100 12/02/17 07:08 12/02/17 07:26 12/02/17 09:32 12/02/17 07:15 12/02/17 07:26 Acetaminophen (Tylenol Tab*) 650 mg PO Q6H PRN PRN Reason: FEVER/PAIN Albuterol (Ventolin 2.5 Mg/3 Ml Neb.Sariah*) 2.5 mg INH Q2H PRN PRN Reason: SOB/WHEEZING Last Admin: 11/30/17 15:31 Dose: 2.5 mg Albuterol/Ipratropium (Duoneb (Albuterol 2.5 Mg/Ipratropium 0.5 Mg)) 1 neb INH [id number] AWAKE [facility] Last Admin: 12/02/17 07:23 Dose: 1 neb Benzonatate (Tessalon Cap*) 100 mg PO BID PRN PRN Reason: COUGH Last Admin: 12/01/17 20:06 Dose: 100 mg Device (Tiotropium Inhaler Device*) 1 each .SEE ORDER .USE w/ SPIRIVA CAPS [facility] Duloxetine HCl (Cymbalta Cap*) 60 mg PO DAILY [facility] Last Admin: 12/02/17 08:06 Dose: Not Given Enoxaparin Sodium (Lovenox(*)) 120 mg SUBCUT Q24H [facility] Last Admin: 12/01/17 14:58 Dose: 120 mg Guaifenesin (Mucinex*) 1,200 mg PO BID [facility] Last Admin: 12/02/17 08:06 Dose: 1,200 mg Guaifenesin/Codeine Phosphate (Robitussin Ac 100mg-10mg*) 5 ml PO TID [facility] Heparin Sodium (Porcine) (Heparin Flush Picc/Ml/Cvc(*)) 1 ml FLUSH 0600,1800 [facility]; Protocol Hydromorphone HCl (Dilaudid Inj*) 2 mg IV SLOW PU Q4H PRN PRN Reason: PAIN Last Admin: 12/02/17 08:16 Dose: 2 mg Piperacillin Sod/Tazobactam (Sod 3.375 gm/ Sodium Chloride) 100 mls @ 25 mls/ hr IVPB Q8H [facility] Last Admin: 12/02/17 10:11 Dose: 25 mls/hr Lactobacillus Rhamnosus (Lactobacillus Acidophilus*) 1 tab PO DAILY [facility] Last Admin: 12/02/17 08:05 Dose: 1 tab Lidocaine (Lidoderm 5% Patch*) 1 patch TRANSDERM DAILY [facility] Last Admin: 12/02/17 08:05 Dose: 1 patch Lisinopril (Prinivil Tab*) 10 mg PO QAM [facility] Last Admin: 12/02/17 08:06 Dose: 10 mg Mometasone Furoate/Formoterol Fumar (Dulera 200/5 Mdi*) 2 puff INH BID [facility] Last Admin: 12/02/17 07:23 Dose: 2 puff Omeprazole (Prilosec Cap*) 20 mg PO BID [facility] Last Admin: 12/02/17 08:06 Dose: 20 mg Ondansetron HCl (Zofran Inj*) 4 mg IV Q6H PRN PRN Reason: NAUSEA Oxycodone/Acetaminophen (Percocet 5/325 Tab*) 2 tab PO Q6H PRN PRN Reason: PAIN Last Admin: 12/01/17 19:01 Dose: 2 tab Pharmacy Consult (Zosyn Per Pharmacy*) 1 note FOLLOW UP .ZOSYN PER PHARMACY [facility] Pharmacy Profile Note (Lidocaine Patch Remove*) 1 note N/A 2100 [facility] Last Admin: 12/02/17 01:00 Dose: 1 note Prednisone (Deltasone Tab*) 60 mg PO DAILY [facility] Tiotropium [place] (Spiriva Cap.Inh*) 1 cap INH DAILY [facility] Last Admin: 12/02/17 07:24 Dose: 1 cap Exam: Gen: Chronically ill appearing 52 yo female in NAD, cushingoid appearance, smiling upon entering the room HEENT: MMM CV: RRR, no m/r/g Resp: diffuse wheezing and rhonchi in R lung presley, improved breath sounds in the L Chest: some mild TTP over R posterior chest wall Abd: soft, nonTTP Ext: no LE edema Psych: alert and appropriate Assessment: []52 yo with recurrent NSCLC s/p C2 Docetaxel (D22 today) admitted with recurrent PNA improving on Zoysn. Plan: []1. PNA: likely post obstruction - ID consult is appreciated - plan to cont Zosyn and transition to Augmentin at discharge 2. COPD: - improvement in dyspnea, still significant wheeze on exam - start to taper steroids, transition to po steroids tomorrow 3. Back pain - likely costochondritis v pleurisy - improved with lidocaine patch - trial robitussin with codiene for cough suppression/additional pain control - attempt to wean from IV pain medications 3. NSCLC: delay chemo x1 week with re-eval. as outpatient next week before C3, plan imaging s/p C3 Disposition: anticipate dc home tomorrow
[2017-12-02] MEDS: Enoxaparin(*) 150 MG/ML 1 ML SYRINGE SUBCUT SCH (13:52)
[2017-12-02] MEDS: guaiFENesin/CODIEN 100MG-10MG* 5 ML UDC PO SCH ×2 (13:52→19:57)
[2017-12-02] MEDS: oxyCODONE/Acetamin 5/325 MG* TAB PO PRN (19:55)
[2017-12-02] MEDS: Benzonatate CAP* 100 MG PO PRN (19:56)
[2017-12-03] MEDS: Albuterol/Ipratropium NEB.SOL* Albuterol 2.5 MG/Ipratropium 0.5 MG 3 ML INH SCH ×2 (00:56→07:06)
[2017-12-03] MEDS: ZOSYN 3.375 GM Q8H per EXTENDED INFUSION IVPB SCH ×4 (01:58→09:43)
[2017-12-03] MEDS: HYDROmorphone INJ* 0.5 MG/0.5 ML SYRINGE IV SLOW PU PRN ×2 (02:05→09:43)
[2017-12-03] MEDS: oxyCODONE/Acetamin 5/325 MG* TAB PO PRN (06:04)
[2017-12-03] MEDS: Mometasone/Formoter 200/5 MDI INH SCH (07:07)
[2017-12-03] MEDS: Tiotropium CAP.INH* CAP.INH/18 MCG (USE ORDER SET !) INH SCH (07:07)
[2017-12-03] MEDS ORDERED: predniSONE TAB* 20 MG PO SCH (09:00)
[2017-12-03] MEDS: guaiFENesin/CODIEN 100MG-10MG* 5 ML UDC PO SCH (09:50)
[2017-12-03] MEDS: guaiFENesin ER TAB 600 MG PO SCH (09:51)
[2017-12-03] MEDS: Lactobacillus Acidophilus* 1 TAB PO SCH (09:52)
[2017-12-03] MEDS: DULoxetine DR CAP* 60 MG CAP.DR PO SCH (09:52)
[2017-12-03] MEDS: Omeprazole CAP* 20 MG PO SCH (09:52)
[2017-12-03] MEDS: Lisinopril TAB* 10 MG PO SCH (09:53)
[2017-12-03] MEDS: Lidocaine PATCH 5%* 1 PATCH TRANSDERM SCH (09:54)
[2017-12-03 09:56] VITALS: BP 148/87
--- NOTE | 2017-12-04 01:06 | DS ---
CC: Dr. Lima; Dr. Marianne Mcneill; Dr. Laly Juan * DISCHARGE SUMMARY: DATE OF ADMISSION: 11/28/17 DATE OF DISCHARGE: 12/03/17 PRIMARY CARE PROVIDER: Dr. Lima PRIMARY ONCOLOGIST AND ATTENDING PHYSICIAN: Marianne Mcneill MD * (dictated by KWESI Randall) DISCHARGING PROVIDER: KWESI Randall PRIMARY DISCHARGE DIAGNOSES: 1. Postobstructive pneumonia. 2. Chronic obstructive pulmonary disease with acute exacerbation. 3. Pleurisy with right-sided chest pain. SECONDARY DISCHARGE DIAGNOSES: 1. Non-small cell lung cancer status post cycle 2 of Taxotere - plan to hold cycle 3 until she is recovered from this pneumonia episode. 2. History of pulmonary embolism - on Lovenox. DISCHARGE MEDICATIONS: 1. Nebulized albuterol inhaled every 6 hours as needed for shortness of breath. 2. Cymbalta 60 mg p.o. daily. 3. Mucinex 1200 mg p.o. twice daily. 4. Lisinopril 10 mg p.o. daily. 5. Multivitamin 1 tablet p.o. daily. 6. Augmentin 875/125 one tablet p.o. twice daily x10 days. 7. Lovenox 120 mg subcu daily. 8. Diflucan 150 mg daily x1 if needed for yeast infection. 9. Robitussin with codeine 5 mL p.o. 3 times daily as needed for cough. 10. Lactobacillus and acidophilus 1 capsule p.o. twice daily. 11. Percocet 5/325 two tablets p.o. q.6 hours as needed for pain. 12. Prednisone 60 mg p.o. daily tapering by 10 mg every 5 days. 13. Spiriva 1 capsule inhaled daily. Medication changes: 1. Augmentin x10 days. 2. Prednisone in a slow tapering dose. 3. Start probiotic. 4. Start Robitussin AC as needed for cough suppression. 5. Increase Percocet for control of pain related to her pleurisy. HOSPITAL IMAGING: Chest x-ray 11/28/17 showed a suspicion of postobstructive pneumonitis with associated effusion with a right middle and lower lobe infiltrate which appears worse when compared to imaging from 11/17/17. Chest x-ray 11/30/17 showed stable consolidation of the right middle and lower lobe with a small right-sided pleural effusion. HOSPITAL COURSE: This is a very pleasant and unfortunate 52-year-old female with metastatic non-small cell lung cancer who was recently hospitalized with pneumonia following cycle 2 of Taxotere. The patient began having increasing shortness of breath, cough and fevers after completing her course of Levaquin and starting to taper her steroids and she subsequently returned to the emergency department and was readmitted. Chest x-ray at the time of admission showed progression of her prior infiltrate found to likely be postobstructive in nature with the dense consolidation of the right middle and lower lobe. The patient was initially started on Zosyn and vancomycin and then limited to single agent dosing during her hospitalization. Infectious Disease specialist, Dr. Tian Granados was consulted who suggested continuing Zosyn during her hospitalization and transition to oral Augmentin at the time of discharge. The patient remained afebrile throughout her hospitalization and her hypoxia quickly improved. She maintained rather significant wheeze and rhonchi on auscultation but with improvement in her breath sounds throughout her hospital stay. Her exercise tolerance was such that she was able to ambulate independently without significant dyspnea around the entire medical unit. DISPOSITION AND FOLLOWUP PLAN: The patient is being discharged to home with medications as outlined above. She will follow up in the Oncology office next week. We will hold her third cycle of chemotherapy until completely recovered from this episode of pneumonia. KWESI RANDALL [id number]/[facility] #: [id number] [facility]
== END 2017-12-03 11:20 | disposition home or self-care (01) | DRG 140 ==
LOC: ED 09:52 → MED 12:49
PROVIDERS: ADMIT Hospitalist; ATTEND Internal Medicine Hematology & Oncology
DX: J44.1 Chronic obstructive pulmonary disease with (acute) exacerbation (principal); J18.8 Other pneumonia, unspecified organism; N17.9 Acute kidney failure, unspecified; C34.90 Malignant neoplasm of unspecified part of unspecified bronchus or lung; R09.1 Pleurisy; G89.3 Neoplasm related pain (acute) (chronic); E66.9 Obesity, unspecified; F17.210 Nicotine dependence, cigarettes, uncomplicated; F41.8 Other specified anxiety disorders; Z68.32 Body mass index [BMI] 32.0-32.9, adult; Z86.711 Personal history of pulmonary embolism; Z79.01 Long term (current) use of anticoagulants; Z79.891 Long term (current) use of opiate analgesic; Z79.52 Long term (current) use of systemic steroids; Z79.899 Other long term (current) drug therapy; Z88.8 Allergy status to other drugs, medicaments and biological substances; Z83.3 Family history of diabetes mellitus; Z82.49 Family history of ischemic heart disease and other diseases of the circulatory system
CPT/HCPCS: 36415; 71046; 80048; 80053; 81003; 82550; 82553; 82803; 83605; 83735; 83880; 84145; 84484; 85025; 86140; 87040; 87899; 93005; 94640; 94667; 94668; 99231; 99232; 99239; 99284; A9270-GY; J1170; J1650; J2270; J2543; J2930; J3370; J7512

== ENCOUNTER 2017-12-07 10:33 | Inpatient (IN) | payer BC ==
[2017-12-07] MEDS ORDERED: Acetaminophen TAB* 325 MG PO PRN (10:58)
[2017-12-07] MEDS ORDERED: Piperacillin/Tazobac ADVAN(*) 3.375 GM in NS 0.9% 100 ML* 100 ML IVPB ONE (11:01)
[2017-12-07] MEDS ORDERED: guaiFENesin/CODIEN 100MG-10MG* 5 ML UDC PO PRN (11:04)
[2017-12-07] MEDS ORDERED: Enoxaparin(*) 150 MG/ML 1 ML SYRINGE SUBCUT SCH (12:00)
[2017-12-07] MEDS ORDERED: Zosyn per Pharmacy* NOTE FOLLOW UP SCH (12:00)
[2017-12-07] MEDS: Morphine TAB Extended Release (*) 15 MG TAB.ER PO SCH ×3 (13:03→22:31)
[2017-12-07] MEDS: methylPREDNISolone SOD 40 MG* 1 ML VIAL IV SCH ×2 (13:06→22:24)
[2017-12-07] MEDS: HYDROmorphone INJ* 0.5 MG/0.5 ML SYRINGE IV SLOW PU PRN ×3 (13:15→22:15)
--- NOTE | 2017-12-07 14:18 | RAD ---
Indication: Evaluate infiltrate. 2 views of the chest including dual energy PA views are reviewed. There is again identified consolidation in the right lower lobe in the perihilar area. There is some fluid along the fissure. Underlying mass is not excluded. IMPRESSION: Right perihilar infiltrate predominantly in the right lower lobe. Underlying mass is not totally excluded.
[2017-12-07 14:20] LABS: ABS Basophils 0 10^3/ul (0-0.2); ABS Eosinophils 0 10^3/ul (0-0.6); ABS Monocytes 0.4 10^3/ul (0-0.8); ABS Neutrophils 11.2 10^3/ul (1.5-7.7); ABS Nucleated RBC 0 10^3/ul; Eosinophil % 0 % (0-6); Hematocrit 34 % (35-47); Hemoglobin 11.1 g/dl (12.0-16.0); Lymphocyte % 7.8 % (25-47); Mean Corpuscular HGB Conc 33 g/dl (31-36); Mean Corpuscular Hemoglobin 30 pg (27-31); Mean Corpuscular Volume 90 fL (80-97); Mean Platelet Volume 5.9 um3 (7.4-10.4); Nucleated Red Blood Cells % 0.1; Platelet Count 248 10^3/ul (150-450); Red Blood Count 3.72 10^6/ul (4.00-5.40); Red Cell Distribution Width 19 % (10.5-15); White Blood Count 12.6 10^3/ul (3.5-10.8)
[2017-12-07] MEDS: Albuterol/Ipratropium NEB.SOL* Albuterol 2.5 MG/Ipratropium 0.5 MG 3 ML INH SCH ×3 (15:26→23:33)
[2017-12-07] MEDS: oxyCODONE/Acetamin 5/325 MG* TAB PO PRN (16:08)
[2017-12-07] MEDS: ZOSYN 3.375 GM Q8H per EXTENDED INFUSION IVPB SCH ×2 (17:27)
[2017-12-07] MEDS: Lactobacillus Acidophilus* 1 TAB PO SCH (22:15)
[2017-12-08] MEDS: ZOSYN 3.375 GM Q8H per EXTENDED INFUSION IVPB SCH ×6 (01:56→17:06)
[2017-12-08] MEDS: HYDROmorphone INJ* 0.5 MG/0.5 ML SYRINGE IV SLOW PU PRN ×5 (02:53→21:09)
[2017-12-08 06:38] LABS: ABS Basophils 0 10^3/ul (0-0.2); ABS Eosinophils 0 10^3/ul (0-0.6); ABS Lymphocytes 0.8 10^3/ul (1.0-4.8); ABS Monocytes 0.5 10^3/ul (0-0.8); ABS Neutrophils 10.9 10^3/ul (1.5-7.7); ABS Nucleated RBC 0 10^3/ul; Eosinophil % 0 % (0-6); Hematocrit 31 % (35-47); Hemoglobin 10.3 g/dl (12.0-16.0); Lymphocyte % 6.9 % (25-47); Mean Corpuscular HGB Conc 33 g/dl (31-36); Mean Corpuscular Hemoglobin 30 pg (27-31); Mean Corpuscular Volume 91 fL (80-97); Mean Platelet Volume 6.3 um3 (7.4-10.4); Nucleated Red Blood Cells % 0; Platelet Count 221 10^3/ul (150-450); Red Cell Distribution Width 19 % (10.5-15); White Blood Count 12.3 10^3/ul (3.5-10.8)
[2017-12-08] MEDS: Albuterol/Ipratropium NEB.SOL* Albuterol 2.5 MG/Ipratropium 0.5 MG 3 ML INH SCH ×6 (07:05→22:55)
[2017-12-08] MEDS: Morphine TAB Extended Release (*) 15 MG TAB.ER PO SCH ×2 (09:49→21:04)
[2017-12-08] MEDS: Lactobacillus Acidophilus* 1 TAB PO SCH ×2 (09:50→21:03)
[2017-12-08] MEDS: Lisinopril TAB* 10 MG PO SCH (09:50)
[2017-12-08] MEDS: DULoxetine DR CAP* 20 MG CAP.DR PO SCH (09:50)
[2017-12-08] MEDS: Enoxaparin(*) 150 MG/ML 1 ML SYRINGE SUBCUT SCH (09:51)
--- NOTE | 2017-12-08 10:31 | PN ---
Progress Note - Progress Note Date of Service: 12/08/17 SOAP: Subjective: still w significant chest pain on coughing. felt that the dilaudid 2 mg that she got on last hospitalization was way more helpful than the 0.5 mg that she is getting now. still SOB but more comfortable than yesterday. Objective: Vital Signs Temp Pulse Resp BP Pulse Ox 98.2 F 92 17 136/86 98 12/08/17 07:13 12/08/17 07:26 12/08/17 08:25 12/08/17 07:13 12/08/17 07:26 sitting up visibly tachpneic, more so with talking cushingoid dense wheezing on right, less though still wheezing on left tachycardic soft nt +Bs no le edema A+O x 3, nonfocal neurological exam Laboratory Results - last 24 hr 12/07/17 12/07/17 12/08/17 14:11 14:11 06:18 WBC 12.6 H 12.3 H RBC 3.72 L 3.40 L Hgb 11.1 L 10.3 L Hct 34 L 31 L MCV 90 91 MCH 30 30 MCHC 33 33 RDW 19 H 19 H Plt Count 248 221 MPV 5.9 L 6.3 L Neut % (Auto) 88.8 H 88.9 H Lymph % (Auto) 7.8 L 6.9 L Sully % (Auto) 3.3 4.1 Eos % (Auto) 0 0 Baso % (Auto) 0.1 0.1 Absolute Neuts (auto) 11.2 H 10.9 H Absolute Lymphs (auto) 1.0 0.8 L Absolute Monos (auto) 0.4 0.5 Absolute Eos (auto) 0 0 Absolute Basos (auto) 0 0 Absolute Nucleated RBC 0 0 Nucleated RBC % 0.1 0 Sodium 139 Potassium 4.2 Chloride 105 Carbon Dioxide 27 Anion Gap 7 BUN 31 H Creatinine 0.73 Est GFR ( Amer) 101.7 Est GFR (Non-Af Amer) 84.0 BUN/Creatinine Ratio 42.5 H Glucose 112 H Calcium 9.8 Total Bilirubin 0.40 AST 18 ALT 45 Alkaline Phosphatase 58 Total Protein 7.0 Albumin 4.2 Globulin 2.8 Albumin/Globulin Ratio 1.5 12/08/17 06:18 WBC RBC Hgb Hct MCV MCH MCHC RDW Plt Count MPV Neut % (Auto) Lymph % (Auto) Sully % (Auto) Eos % (Auto) Baso % (Auto) Absolute Neuts (auto) Absolute Lymphs (auto) Absolute Monos (auto) Absolute Eos (auto) Absolute Basos (auto) Absolute Nucleated RBC Nucleated RBC % Sodium 137 Potassium 4.3 Chloride 106 Carbon Dioxide 25 Anion Gap 6 BUN 27 H Creatinine 0.73 Est GFR ( Amer) 101.7 Est GFR (Non-Af Amer) 84.0 BUN/Creatinine Ratio 37.0 H Glucose 125 H Calcium 9.8 Total Bilirubin 0.30 AST 11 L ALT 35 Alkaline Phosphatase 49 Total Protein 6.2 L Albumin 3.7 Globulin 2.5 Albumin/Globulin Ratio 1.5 Acetaminophen (Tylenol Tab*) 650 mg PO Q4H PRN PRN Reason: FEVER/PAIN Last Admin: 12/08/17 09:49 Dose: 650 mg Albuterol/Ipratropium (Duoneb (Albuterol 2.5 Mg/Ipratropium 0.5 Mg)) 1 neb INH [id number] AWAKE [facility] Last Admin: 12/08/17 07:24 Dose: 1 neb Duloxetine HCl (Cymbalta Cap*) 20 mg PO DAILY [facility] Last Admin: 12/08/17 09:50 Dose: 20 mg Enoxaparin Sodium (Lovenox(*)) 120 mg SUBCUT 0900 [facility] Last Admin: 12/08/17 09:51 Dose: 120 mg Guaifenesin/Codeine Phosphate (Robitussin Ac 100mg-10mg*) 5 ml PO TID PRN PRN Reason: COUGH Last Admin: 12/07/17 13:03 Dose: 5 ml Hydromorphone HCl (Dilaudid Inj*) 2 mg IV SLOW PU Q4H PRN PRN Reason: PAIN - MODERATE TO SEVERE Piperacillin Sod/Tazobactam (Sod 3.375 gm/ Sodium Chloride) 100 mls @ 25 mls/ hr IVPB Q8H [facility] Last Admin: 12/08/17 09:50 Dose: 25 mls/hr Lactobacillus Rhamnosus (Lactobacillus Acidophilus*) 1 tab PO BID [facility] Last Admin: 12/08/17 09:50 Dose: 1 tab Lisinopril (Prinivil Tab*) 10 mg PO QAM [facility] Last Admin: 08/08/18 09:50 Dose: 10 mg Methylprednisolone Sodium Succinate (Solu-Medrol 40 Mg) 40 mg IV Q12H [facility] Last Admin: 12/07/17 22:24 Dose: 40 mg Morphine Sulfate (Ms Contin(*)) 15 mg PO BID [facility] Last Admin: 12/08/17 09:49 Dose: Not Given Oxycodone/Acetaminophen (Percocet 5/325 Tab*) 2 tab PO Q6H PRN PRN Reason: PAIN Last Admin: 12/07/17 16:08 Dose: 2 tab Pharmacy Consult (Zosyn Per Pharmacy*) 1 note FOLLOW UP .ZOSYN PER PHARMACY [facility] Tiotropium [place] (Spiriva Cap.Inh*) 1 cap INH DAILY [facility] Assessment: 52 yo F w recurrent NSCLC on palliative Docetaxel sp cycle 2 readmitted with recurrent/persistent respiratory distress. Plan: Respiratory distress: there is question of an endobronchial lesion, and she will be seen by Dr. Juan today for consideration of bronchoscopy. I did discuss with Dr. Carty and if there is a very specific site of concern he feels she would be amenable to focal palliative RT. -cont IV steroids and zosyn (postobstructive PNA) pain control: will increase IV dilaudid to 2 mg (which she was on 2 weeks ago and worked well) cont percocet for mild pain cont long acting morphine PE: cont lovenox, can hold for bronch if needed full code
[2017-12-08] MEDS: Tiotropium CAP.INH* CAP.INH/18 MCG (USE ORDER SET !) INH SCH ×2 (11:22→15:34)
[2017-12-08] MEDS: methylPREDNISolone SOD 40 MG* 1 ML VIAL IV SCH (11:37)
[2017-12-08] MEDS ORDERED: Spiriva Inhaler DEVICE* 1 EACH DEVICE INH ONE (13:00)
--- NOTE | 2017-12-08 21:44 | CONS ---
PULMONARY CONSULTATION REPORT: DATE OF CONSULT: 12/08/17 CONSULTATION REQUESTED BY: Mayte Oh NP/Dr. Marianne Mcneill. REASON FOR CONSULTATION: Evaluation of recurrent pneumonia. 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 The patient with recent multiple admissions for shortness of breath and being treated for post obstructive pneumonia. The patient was sent to hospital for evaluation of right -sided chest pain and shortness of breath. The patient recently was hospitalized and was discharged on 12/03/17 after being treated for pneumonia with Zosyn and was discharged home on Augmentin, prednisone, and oxycodone for pain. The patient denies recent fevers. Continues to have productive cough mostly with clear phlegm. The patient reports dyspnea on exertion. The patient was readmitted for management of pneumonia. The patient was seen and examined at bedside. Her at the bedside. The patient reports slight improvement in her symptoms. She has been on room air, has not been requiring O2 supplementation. The patient's recent CT showed evidence of significant pretracheal, subcarinal, and prevascular adenopathy. The patient also with the right supraclavicular adenopathy. The patient had bronchoscopy in October of 2017 , which confirmed metastatic disease in the lymph nodes. She has a history of left upper lobe extremity DVT and is on Lovenox. Recent CTA from 11/17/17 was personally reviewed by me - the patient with evidence of consolidation of the right middle lobe and right lower lobe with endobronchial narrowing. The patient also with evidence of right pleural effusion. Left lung has been without any focal nodule or masses. Chest x-ray performed on this admission was also reviewed by me personally - the patient noted to have right perihilar airspace opacity. The patient was initiated on Solu-Medrol for COPD exacerbation. The patient was also initiated on steroids. The patient otherwise is in no apparent distress. PAST MEDICAL HISTORY: Stage IIIB squamous cell carcinoma of the lung, diagnosed in October of 2017, on immunotherapy and docetaxel; left upper extremity DVT; recent admissions for recurrent pneumonias, being treated; hypertension. PAST SURGICAL HISTORY: 1. All teeth removed in 2016. 2. Cholecystectomy in 2014. 3. Total abdominal hysterectomy in 2009. MEDICATIONS: 1. Duloxetine. 2. Hydrocodone. 3. Acetaminophen. 4. Lisinopril. 5. Multivitamin. 6. NicoDerm. 7. Prednisone. 8. Ventolin. 9. Augmentin. ALLERGIES: TAXOL. FAMILY HISTORY: Reviewed and noncontributory to current complaint. SOCIAL HISTORY: Daily smoker. Smoked 1 pack per day for 40 years. No history of alcohol abuse, currently on nicotine supplements. REVIEW OF SYSTEMS: Positive for fatigue. Denied fever or chills, no visual changes. Status post removal of all teeth. No easy bruising. Denies breast discharge, presents with cough, shortness of breath, right-sided chest pain. No urinary complaints. PHYSICAL EXAM: The patient is in bed, in no apparent distress. Vital Signs: Temperature 98, pulse 108 beats per minute, respiratory rate 20 per minute, O2 saturation 97% on room air, blood pressure 154/97. HEENT: Pupils equal, reactive to light. Mucous membranes moist. Lungs: Wheeze on auscultation bilaterally, rhonchi present. Cardiovascular: S1, S2 present, regular. Abdomen: Soft, nontender, nondistended. Bowel sounds present. Extremities: Normal range of motion. Neuro: No focal deficits. DIAGNOSTIC STUDIES/LAB DATA: WBC count 12.3, hemoglobin 10.3, hematocrit 31, platelet count 221. Sodium 137, potassium 4.3, chloride 106, bicarb 25, BUN 27, creatinine 0.73. CTA as described above in HPI. Chest x-ray as described above in HPI. IMPRESSION AND RECOMMENDATIONS: 52-year-old female with stage IIIA lung cancer with possible progression of disease while on chemotherapy with recurrent admissions for postobstructive pneumonia, also with possible endobronchial lesion. The patient, given recurrent admissions for postobstructive pneumonia, likely from endobronchial obstruction from recurrence and or progression of malignancy. Will schedule the patient for bronchoscopy for airway inspection and for possible BAL from the right lung. Procedure was discussed in detail with the patient. Associated risks and benefits were thoroughly explained. This bronchoscopy biopsy is positive for progression of cancer, the patient being considered for radiation therapy. Continue with current dose of Solu-Medrol. Continue with bronchodilators q.4 hours. Agree with current antibiotics. Thank you for allowing me to participate in the care of your patient. Will follow up with you. [id number]/[facility] #: [id number] TRU
[2017-12-09] MEDS: ZOSYN 3.375 GM Q8H per EXTENDED INFUSION IVPB SCH ×6 (00:53→17:57)
[2017-12-09] MEDS: methylPREDNISolone SOD 40 MG* 1 ML VIAL IV SCH ×3 (00:53→23:45)
[2017-12-09] MEDS: HYDROmorphone INJ* 0.5 MG/0.5 ML SYRINGE IV SLOW PU PRN ×6 (00:53→22:11)
[2017-12-09] MEDS: Albuterol/Ipratropium NEB.SOL* Albuterol 2.5 MG/Ipratropium 0.5 MG 3 ML INH SCH ×4 (02:57→19:16)
[2017-12-09] MEDS: Tiotropium CAP.INH* CAP.INH/18 MCG (USE ORDER SET !) INH SCH (07:21)
--- NOTE | 2017-12-09 09:09 | PN ---
Progress Note - Progress Note Date of Service: 12/09/17 SOAP: Subjective: caught by nursing smoking in her bathroom yesterday, which she adamantly denies. breathing better today with IV antibiotics and steroids. planned for bronch tomorrow Objective: Vital Signs Temp Pulse Resp BP Pulse Ox 98.3 F 75 18 154/90 95 12/09/17 07:10 12/09/17 07:23 12/09/17 07:23 12/09/17 07:10 12/09/17 07:23 less tachypneic today tobar facies perr eomi op no thrush dense wheezing throughout R>L soft nt +bs no le edema A+O x 3, nonfocal neurological exam Acetaminophen (Tylenol Tab*) 650 mg PO Q4H PRN PRN Reason: FEVER/PAIN Last Admin: 12/08/17 09:49 Dose: 650 mg Albuterol/Ipratropium (Duoneb (Albuterol 2.5 Mg/Ipratropium 0.5 Mg)) 1 neb INH [id number] AWAKE [facility] Duloxetine HCl (Cymbalta Cap*) 20 mg PO DAILY [facility] Last Admin: 12/08/17 09:50 Dose: 20 mg Enoxaparin Sodium (Lovenox(*)) 120 mg SUBCUT 0900 [facility] Last Admin: 12/08/17 09:51 Dose: 120 mg Guaifenesin/Codeine Phosphate (Robitussin Ac 100mg-10mg*) 5 ml PO TID PRN PRN Reason: COUGH Last Admin: 12/07/17 13:03 Dose: 5 ml Hydromorphone HCl (Dilaudid Inj*) 2 mg IV SLOW PU Q4H PRN PRN Reason: PAIN - MODERATE TO SEVERE Last Admin: 12/09/17 05:30 Dose: 2 mg Piperacillin Sod/Tazobactam (Sod 3.375 gm/ Sodium Chloride) 100 mls @ 25 mls/ hr IVPB Q8H [facility] Last Admin: 12/09/17 00:53 Dose: 25 mls/hr Lactobacillus Rhamnosus (Lactobacillus Acidophilus*) 1 tab PO BID [facility] Last Admin: 12/08/17 21:03 Dose: 1 tab Lisinopril (Prinivil Tab*) 10 mg PO QAM [facility] Last Admin: 08/08/18 09:50 Dose: 10 mg Methylprednisolone Sodium Succinate (Solu-Medrol 40 Mg) 40 mg IV Q12H [facility] Last Admin: 12/09/17 00:53 Dose: 40 mg Morphine Sulfate (Ms Contin(*)) 15 mg PO BID [facility] Last Admin: 12/08/17 21:04 Dose: Not Given Oxycodone/Acetaminophen (Percocet 5/325 Tab*) 2 tab PO Q6H PRN PRN Reason: PAIN Last Admin: 12/07/17 16:08 Dose: 2 tab Pharmacy Consult (Zosyn Per Pharmacy*) 1 note FOLLOW UP .ZOSYN PER PHARMACY [facility] Tiotropium [place] (Spiriva Cap.Inh*) 1 cap INH DAILY [facility] Last Admin: 12/09/17 07:21 Dose: 1 cap Assessment: 52 yo F w recurrent NSCLC on palliative Docetaxel sp cycle 2 readmitted with recurrent/persistent respiratory distress. Plan: Respiratory distress: there is question of an endobronchial tumor, and she will have bronchoscopy tomorrow. If there is a high enough suspicion for malignancy related focal tumor she may benefit from focal RT -cont IV steroids and zosyn (postobstructive PNA) -encouraged smoking cessation AGAIN pain control:much better on higher dose dilaudid cont IV dilaudid 2 mg cont percocet for mild pain cont long acting morphine PE: cont lovenox, hold for bronch tomorrow full code
[2017-12-09] MEDS: Lisinopril TAB* 10 MG PO SCH (10:16)
[2017-12-09] MEDS: DULoxetine DR CAP* 20 MG CAP.DR PO SCH (10:16)
[2017-12-09] MEDS: Morphine TAB Extended Release (*) 15 MG TAB.ER PO SCH ×2 (10:16→21:42)
[2017-12-09] MEDS: Enoxaparin(*) 150 MG/ML 1 ML SYRINGE SUBCUT SCH (10:46)
[2017-12-09] MEDS: Lactobacillus Acidophilus* 1 TAB PO SCH ×2 (12:39→21:43)
[2017-12-09] MEDS ORDERED: Buffered Lidocaine 0.9% SYRIN* 5 ML/SYR SYRINGE INTRADERM ONE (17:01)
--- NOTE | 2017-12-09 17:10 | PN ---
Progress Note - Progress Note Date of Service: 12/09/17 - Pulm f/u note Note: Pt seen and examined at bedside. Pt reports slight improvement in breathing. Has intermittent cough. Denies smoking. Active Medications Generic Name Dose Route Start Last Admin Trade Name Freq PRN Reason Stop Dose Admin Acetaminophen 650 mg 12/07/17 10:58 12/08/17 09:49 Tylenol Tab* PO 650 mg Q4H PRN Administration FEVER/PAIN Albuterol/Ipratropium 1 neb 12/09/17 13:00 12/09/17 13:22 Duoneb (Albuterol 2.5 Mg/Ipratropium 0.5 Mg) INH 1 neb [id number] AWAKE [facility] Administration Duloxetine HCl 20 mg 12/08/17 09:00 12/09/17 10:16 Cymbalta Cap* PO 20 mg DAILY [facility] Administration Guaifenesin/Codeine Phosphate 5 ml 12/07/17 11:04 12/07/17 13:03 Robitussin Ac 100mg-10mg* PO 5 ml TID PRN Administration COUGH Hydromorphone HCl 2 mg 12/08/17 10:19 12/09/17 13:59 Dilaudid Inj* IV SLOW PU 2 mg Q4H PRN Administration PAIN - MODERATE TO SEVERE Piperacillin Sod/Tazobactam 100 mls @ 25 mls/hr 12/07/17 17:30 12/09/17 10:17 Sod 3.375 gm/ Sodium Chloride IVPB 25 mls/hr Q8H [facility] Administration Lactobacillus Rhamnosus 1 tab 12/07/17 21:00 12/09/17 12:39 Lactobacillus Acidophilus* PO 1 tab BID [facility] Administration Lisinopril 10 mg 12/08/17 09:00 12/09/17 10:16 Prinivil Tab* PO 10 mg QAM [facility] Administration Methylprednisolone Sodium Succinate 40 mg 12/07/17 12:00 12/09/17 10:17 Solu-Medrol 40 Mg IV 40 mg Q12H [facility] Administration Morphine Sulfate 15 mg 12/07/17 12:00 12/09/17 10:16 Ms Contin(*) PO 15 mg BID [facility] Administration Oxycodone/Acetaminophen 2 tab 12/07/17 11:04 12/07/17 16:08 Percocet 5/325 Tab* PO 2 tab Q6H PRN Administration PAIN Pharmacy Consult 1 note 12/07/17 12:00 Zosyn Per Pharmacy* FOLLOW UP .ZOSYN PER PHARMACY [facility] Tiotropium [place] 1 cap 12/08/17 09:00 12/09/17 07:21 Spiriva Cap.Inh* INH 1 cap DAILY [facility] Administration Vital Signs Temp Pulse Resp BP Pulse Ox 98.4 F 84 23 161/85 95 12/09/17 15:39 12/09/17 15:39 12/09/17 15:39 12/09/17 15:39 12/09/17 15:39 O/E; Pt in NAD HEENT: PERRLA, No JVD Lungs: Wheeze+ b/l, prolonged exp phase CVS: S1, S2+ Abd: Soft, BS+ Ext: No edema Neuro: No focal defecits Labs: No new results I/R: 52 y o f with signficant smoking history with complicated course recently with multiple admissions for SOB, CT chest showing possible endobronchial narrowing from tumor recurrence Pt being treated for acute COPD exacerbation, still has wheeze Pt was smelling cig smoke as noted by RN, 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
[2017-12-10] MEDS: Albuterol/Ipratropium NEB.SOL* Albuterol 2.5 MG/Ipratropium 0.5 MG 3 ML INH SCH ×4 (01:02→19:43)
[2017-12-10] MEDS: ZOSYN 3.375 GM Q8H per EXTENDED INFUSION IVPB SCH ×6 (02:12→16:58)
[2017-12-10] MEDS: HYDROmorphone INJ* 0.5 MG/0.5 ML SYRINGE IV SLOW PU PRN ×5 (02:12→23:16)
[2017-12-10] MEDS ORDERED: Buffered Lidocaine 0.9% SYRIN* 5 ML/SYR SYRINGE INTRADERM ONE (06:00)
[2017-12-10] MEDS: Tiotropium CAP.INH* CAP.INH/18 MCG (USE ORDER SET !) INH SCH (07:09)
[2017-12-10] MEDS: Morphine TAB Extended Release (*) 15 MG TAB.ER PO SCH ×2 (09:06→20:33)
[2017-12-10] MEDS: DULoxetine DR CAP* 20 MG CAP.DR PO SCH (09:07)
[2017-12-10] MEDS: Lactobacillus Acidophilus* 1 TAB PO SCH ×2 (09:07→20:33)
--- NOTE | 2017-12-10 09:11 | PN ---
Progress Note - Progress Note Date of Service: 12/10/17 SOAP: Subjective: [Dyspnea and chest pain improving. Still requiring IV dilaudid q 4 hours, however. No recent fevers. Plan for bronchoscopy today with Dr Juan. Objective: [ Laboratory Results - last 24 hr 12/10/17 05:44 POC Glucose (mg/dL) 123 H Acetaminophen (Tylenol Tab*) 650 mg PO Q4H PRN PRN Reason: FEVER/PAIN Last Admin: 12/08/17 09:49 Dose: 650 mg Albuterol/Ipratropium (Duoneb (Albuterol 2.5 Mg/Ipratropium 0.5 Mg)) 1 neb INH [id number] AWAKE [facility] Last Admin: 12/10/17 07:09 Dose: 1 neb Duloxetine HCl (Cymbalta Cap*) 20 mg PO DAILY [facility] Last Admin: 12/09/17 10:16 Dose: 20 mg Guaifenesin/Codeine Phosphate (Robitussin Ac 100mg-10mg*) 5 ml PO TID PRN PRN Reason: COUGH Last Admin: 12/07/17 13:03 Dose: 5 ml Hydromorphone HCl (Dilaudid Inj*) 2 mg IV SLOW PU Q4H PRN PRN Reason: PAIN - MODERATE TO SEVERE Last Admin: 12/10/17 06:13 Dose: 2 mg Piperacillin Sod/Tazobactam (Sod 3.375 gm/ Sodium Chloride) 100 mls @ 25 mls/ hr IVPB Q8H [facility] Last Admin: 12/10/17 02:12 Dose: 25 mls/hr Lactated Ringer's (Lactated Ringers 1000 Ml Bag*) 1,000 mls @ 125 mls/hr IV PER RATE [facility] Last Admin: 12/10/17 05:40 Dose: 125 mls/hr Lactobacillus Rhamnosus (Lactobacillus Acidophilus*) 1 tab PO BID [facility] Last Admin: 12/09/17 21:43 Dose: 1 tab Lisinopril (Prinivil Tab*) 10 mg PO QAM [facility] Last Admin: 12/09/17 10:16 Dose: 10 mg Methylprednisolone Sodium Succinate (Solu-Medrol 40 Mg) 40 mg IV Q12H [facility] Last Admin: 12/09/17 23:45 Dose: 40 mg Morphine Sulfate (Ms Contin(*)) 15 mg PO BID [facility] Last Admin: 12/09/17 21:42 Dose: 15 mg Oxycodone/Acetaminophen (Percocet 5/325 Tab*) 2 tab PO Q6H PRN PRN Reason: PAIN Last Admin: 12/07/17 16:08 Dose: 2 tab Pharmacy Consult (Zosyn Per Pharmacy*) 1 note FOLLOW UP .ZOSYN PER PHARMACY [facility] Tiotropium [place] (Spiriva Cap.Inh*) 1 cap INH DAILY [facility] Last Admin: 12/10/17 07:09 Dose: 1 cap Vital Signs Temp Pulse Resp BP Pulse Ox 98.4 F 80 18 139/81 97 12/10/17 07:32 12/10/17 07:32 12/10/17 09:05 12/10/17 07:32 12/10/17 07:32 Exam: Gen: Relatively well appearing and in NAD HEENT: MMM CV: RRR, no m/r/g Resp: L lung [place] are nearly clear, focal crackles and rhonchi in R mid lung [place] Abd: soft, nonTTP Ext: no edema] Assessment: [52 yo female with NSCLC with multiple admissions for PNA which is likely postobstructive in nature. Plan for bronchoscopy today.] Plan: [1. Postobstructive PNA - bronchoscopy today - likely SBRT if obstructing lesion present - cont Zosyn and steroids - cont metanebs - appreciated pulmonology involvement 2. COPD exacerbation - improving - cont steroids and inhaled therapies 3. H/o PE - cont Lovenox (held for bronchscopy today) Dispo: plan for dc home, timing will be dependent on bronchoscopy findings]
[2017-12-10] MEDS: Lisinopril TAB* 10 MG PO SCH (10:45)
[2017-12-10] MEDS: methylPREDNISolone SOD 40 MG* 1 ML VIAL IV SCH (11:32)
[2017-12-10] MEDS ORDERED: Succinylcholine* 20 MG/ML 10 ML VIAL ONE (13:24)
[2017-12-10] MEDS ORDERED: Lidocaine 2% PF * 5 ML VIAL ONE (13:24)
[2017-12-10] MEDS ORDERED: Dexamethasone IV* 4 MG/ML 1 ML (4 MG) ONE (13:24)
[2017-12-10] MEDS ORDERED: Propofol* 10 MG/ML 20 ML BTL IV PUSH ONE (13:24)
[2017-12-10] MEDS ORDERED: Ondansetron INJ* 2 MG/ML VIAL ONE (13:24)
[2017-12-10] MEDS ORDERED: Midazolam* 1 MG/ML 5 ML VIAL (5 MG) ONE (13:25)
[2017-12-10] MEDS ORDERED: fentaNYL* 50 MCG/ML 2 ML VIAL (100 MCG VIAL) ONE (13:25)
[2017-12-10] MEDS ORDERED: Lidocaine 1% INJ* 10 MG/ML 30 ML SDV ONE (13:38)
[2017-12-10] MEDS ORDERED: Lidocaine 2% JELLY* 6 ML JELLY TOPICAL ONE (13:39)
[2017-12-10] MEDS ORDERED: Naloxone* 0.4 MG/ML 1 ML VIAL IV PRN (13:58)
[2017-12-10] MEDS ORDERED: Levalbuterol 0.63MG/3ML NEB* UNIT OF USE INH PRN (13:58)
[2017-12-10] MEDS ORDERED: Ondansetron INJ* 2 MG/ML VIAL IV PRN (13:58)
[2017-12-10] MEDS ORDERED: fentaNYL* 50 MCG/ML 2 ML VIAL (100 MCG VIAL) IV PRN (13:58)
[2017-12-10] MEDS ORDERED: Levalbuterol HFA INHALER* 1 PUFF MDI ONE (14:17)
[2017-12-10] MEDS ORDERED: Ipratropium 0.5MG/2.5ML NEB* 0.5 MG/2.5 ML NEB.SOLN INH ONE (15:01)
--- NOTE | 2017-12-10 16:53 | PN ---
Progress Note - Progress Note Date of Service: 12/10/17 - Pulm f/u note Note: Pt seen and examined at bedside. Pt reports slight improvement in breathing. No acute events o/n Active Medications Generic Name Dose Route Start Last Admin Trade Name Freq PRN Reason Stop Dose Admin Acetaminophen 650 mg 12/07/17 10:58 12/08/17 09:49 Tylenol Tab* PO 650 mg Q4H PRN Administration FEVER/PAIN Albuterol/Ipratropium 1 neb 12/09/17 13:00 12/10/17 13:06 Duoneb (Albuterol 2.5 Mg/Ipratropium 0.5 Mg) INH 1 neb [id number] AWAKE [facility] Administration Duloxetine HCl 20 mg 12/08/17 09:00 12/10/17 09:07 Cymbalta Cap* PO 20 mg DAILY [facility] Administration Enoxaparin Sodium 130 mg 12/11/17 09:00 Lovenox(*) SUBCUT DAILY [facility] Fentanyl Citrate 25 mcg 12/10/17 13:58 Fentanyl* IV Q5M PRN PAIN - MODERATE Guaifenesin/Codeine Phosphate 5 ml 12/07/17 11:04 12/07/17 13:03 Robitussin Ac 100mg-10mg* PO 5 ml TID PRN Administration COUGH Hydromorphone HCl 2 mg 12/08/17 10:19 12/10/17 10:06 Dilaudid Inj* IV SLOW PU 2 mg Q4H PRN Administration PAIN - MODERATE TO SEVERE Piperacillin Sod/Tazobactam 100 mls @ 25 mls/hr 12/07/17 17:30 12/10/17 09:07 Sod 3.375 gm/ Sodium Chloride IVPB 25 mls/hr Q8H [facility] Administration Lactated Ringer's 1,000 mls @ 125 mls/hr 12/10/17 06:00 12/10/17 16:39 Lactated Ringers 1000 Ml Bag* IV 125 mls/hr PER RATE [facility] Administration Lactobacillus Rhamnosus 1 tab 12/07/17 21:00 12/10/17 09:07 Lactobacillus Acidophilus* PO 1 tab BID [facility] Administration Levalbuterol HCl 0.63 mg 12/10/17 13:58 Xopenex 0.63mg/3ml Neb* INH ONCE PRN SOB/WHEEZING Lisinopril 10 mg 12/08/17 09:00 12/10/17 10:45 Prinivil Tab* PO Not Given QAM [facility] Methylprednisolone Sodium Succinate 40 mg 12/07/17 12:00 12/10/17 11:32 Solu-Medrol 40 Mg IV 40 mg Q12H [facility] Administration Morphine Sulfate 15 mg 12/07/17 12:00 12/10/17 09:06 Ms Contin(*) PO 15 mg BID [facility] Administration Naloxone HCl 0.08 mg 12/10/17 13:58 Narcan* IV Q2M PRN severe induced resp depression Ondansetron HCl 4 mg 12/10/17 13:58 Zofran Inj* IV ONCE PRN NAUSEA/VOMITING Oxycodone/Acetaminophen 2 tab 12/07/17 11:04 12/07/17 16:08 Percocet 5/325 Tab* PO 2 tab Q6H PRN Administration PAIN Pharmacy Consult 1 note 12/07/17 12:00 Zosyn Per Pharmacy* FOLLOW UP .ZOSYN PER PHARMACY [facility] Tiotropium [place] 1 cap 12/08/17 09:00 12/10/17 07:09 Spiriva Cap.Inh* INH 1 cap DAILY [facility] Administration Vital Signs Temp Pulse Resp BP Pulse Ox 96.8 F 102 16 126/89 96 12/10/17 14:56 12/10/17 15:46 12/10/17 15:46 12/10/17 15:46 12/10/17 15:46 O/E; Pt in NAD, alert, awake HEENT: PERRLA, No JVD Lungs: Wheeze+ b/l, prolonged exp phase, slightly better compared to yesterday CVS: S1, S2+, regular Abd: Soft, BS+ Ext: No edema Neuro: No focal deficits Laboratory Results - last 24 hr 12/10/17 05:44 POC Glucose (mg/dL) 123 H I/R: 52 y o f with significant smoking history with complicated course recently with multiple admissions for SOB, CT chest showing possible endobronchial narrowing from tumor recurrence Pt being treated for acute COPD exacerbation,improving She is on bronchodilators, steroids, abx Pt s/p bronchoscopy today Pt noted to have mucosal irregularity of right bronchus, narrowing of right lower lobe bronchus likely from extrinsic compression. Pt also with bronchomalacia Bronchoscope couldnot be advanced into right lower lobe bronchus BAL was obtained from [facility] and endobronchial biopsies were obtained from [facility] Pt tolerated procedure well Pt was extubated post procedure and was stable She was given Ipratropium and Xopenex nebulizer with improvement in wheezing Pt to be seen by Dr Carty Pt can be d/radah when stable c/w bronchodilators, abx, steroid taper D/w Mitch Baum NP
[2017-12-10] MEDS: oxyCODONE/Acetamin 5/325 MG* TAB PO PRN (21:20)
[2017-12-11] MEDS: methylPREDNISolone SOD 40 MG* 1 ML VIAL IV SCH (01:18)
[2017-12-11] MEDS: ZOSYN 3.375 GM Q8H per EXTENDED INFUSION IVPB SCH ×2 (01:18)
[2017-12-11] MEDS: Albuterol/Ipratropium NEB.SOL* Albuterol 2.5 MG/Ipratropium 0.5 MG 3 ML INH SCH ×2 (01:20→07:19)
--- NOTE | 2017-12-11 02:20 | PRO ---
BRONCHOSCOPY REPORT: DATE OF PROCEDURE: 12/10/17 PROCEDURE PERFORMED: Bronchoscopy with bronchoalveolar lavage and endobronchial biopsy from right lower lobe. ANESTHESIA: General anesthesia. ANESTHESIOLOGIST: Dr. Willard. PREPROCEDURAL DIAGNOSES: Lung cancer with recurrent postobstructive pneumonia, narrowing of right lower lobe bronchus. POSTPROCEDURAL DIAGNOSES: Narrowing and near complete occlusion of right lower lobe bronchus from extrinsic compression, irregular mucosa with no endobronchial lesion evident. DESCRIPTION OF PROCEDURE: Informed consent was obtained from the patient prior to the procedure after all the risks and benefits were thoroughly explained. Appropriate time-out was agreed on by attending staff prior to the procedure. The patient was intubated with size 8.0 endotracheal tube. Flexible Olympus bronchoscope was used. Bronchoscope was inserted through ET tube. ET tube positioning was confirmed to be 2 cm above the level of manasa. The patient with evidence of patchy white lesions all over her trachea and in the bronchi. Significant mucosal irregularity was noted. Evidence of significant tracheobronchomalacia noted. Thin secretions were noted in the trachea and on the left side and were suctioned out. No endobronchial lesions were noted on the left side. The patient noted to have near complete occlusion of right lower lobe bronchus. Bronchoscope could not be advanced further. Right middle lobe bronchus was also narrowed significantly and bronchoscope could not be inserted secondary to extrinsic compression. Endobronchial biopsies and bronchoalveolar lavage was obtained from the right lower lobe bronchus. The patient was extubated and was seen in Recovery in optimal condition. The patient tolerated the procedure well. BAL and endobronchial biopsies were sent to lab for pathological, cytological and microbiological examination. [id number]/[facility] #: [id number] [facility]
[2017-12-11] MEDS: HYDROmorphone INJ* 0.5 MG/0.5 ML SYRINGE IV SLOW PU PRN (04:17)
[2017-12-11] MEDS: Tiotropium CAP.INH* CAP.INH/18 MCG (USE ORDER SET !) INH SCH (07:19)
[2017-12-11 07:32] VITALS: BP 147/80
--- NOTE | 2017-12-11 07:59 | DS ---
- Discharge Summary ADMIT DATE: 12/07/17 DISCHARGE DATE: 12/11/2017 DISCHARGE DIAGNOSIS: 1. postobstructive PNA and respiratory distress 2. endobronchial compromise from lung tumor 3. metastatic lung cancer 4. tobacco dependance DISCHARGE MEDICATIONS: Home Medications Medication Instructions Recorded Confirmed Type Albuterol HFA INHALER* [Ventolin 2 puff INH Q4H PRN 10/06/17 12/07/17 History HFA Inhaler*] Lisinopril TAB* [Prinivil TAB 10 10 mg PO QAM 10/06/17 12/07/17 History MG*] Multivitamin [One Daily] 1 each PO QAM 10/06/17 12/07/17 History Albuterol 2.5MG/3ML (0.083%)* 2.5 mg INH Q6H PRN 11/17/17 12/07/17 History [Ventolin 2.5 MG/3 ML NEB.MARKUS*] Duloxetine HCl [Cymbalta] 20 mg PO DAILY 11/17/17 12/07/17 History guaiFENesin [Mucinex] 1,200 mg PO BID 11/17/17 12/07/17 History Enoxaparin(*) [Lovenox(*)] 120 mg SUBCUT Q24H #30 syringe 11/19/17 12/07/17 Rx Tiotropium CAP.INH* [Spiriva 1 cap INH DAILY #30 cap.inh 11/19/17 12/07/17 Rx CAP.INH*] Lactobacillus Acidophilus 1 cap PO BID #28 cap 12/03/17 12/07/17 Rx [Acidophilus Lactobacilli] guaiFENesin/CODIEN 100MG-10MG* 5 ml PO TID PRN #300 ml MDD 15 ml 12/03/17 Rx [Robitussin AC 100Mg-10Mg*] predniSONE TAB* [Deltasone 10 MG 60 mg PO DAILY #100 tab 12/03/17 12/07/17 Rx TAB*] Amoxicillin/Clavulanate TAB* 875 mg PO BID #20 tab 12/11/17 Rx [Augmentin TAB 875*] HYDROmorphone TAB* [Dilaudid TAB*] 2 mg PO Q4H PRN #180 tab MDD 12 mg 12/11/17 Rx Morphine TAB Extended Rel(*) [Ms 15 mg PO BID tab.er 12/11/17 Rx Contin(*)] DISCHARGE FOLLOW UP: 1. Dr. Carty 12/13 at [address] Mcneill 1-2 weeks, we will call w apt HOSPITAL COURSE: Please see full admit H+P, briefly 3rd admission for Wanda for postobstructive PNA and respiratory distress, failing outpatient management with steroids and antibiotics. She improves markedly inpatient with IV steroids, antibiotics, and most importantly smoking cessation (though she was found to be smoking on hospital day 2). She had a bronchoscopy yesterday with Dr. Juan and was found to have endobronchial irregularity and extrinsic compression consistent iwth tumor burden. Given this she is felt to be a candidate for focal SBRT to this region and will see Dr. Carty as an outpatient to start this next week. She will stay on 60 mg of prednisone until after RT and then we will attempt a taper. She will stay on Augmentin until the area is opened up more. I spent a significant amount of time counseling her on avoiding smoking (even second hand ) until her respiratory status is improved. For her central chest pain, she has found the most relief from Dilaudid and will be given this as an outpatient for palliation of her cancer related pain. >30 mins spent, >50% in face to face counseling
[2017-12-11] MEDS: Lactobacillus Acidophilus* 1 TAB PO SCH (08:41)
[2017-12-11] MEDS: Lisinopril TAB* 10 MG PO SCH (08:41)
[2017-12-11] MEDS: DULoxetine DR CAP* 20 MG CAP.DR PO SCH (08:41)
[2017-12-11] MEDS: Morphine TAB Extended Release (*) 15 MG TAB.ER PO SCH (08:41)
[2017-12-11] MEDS ORDERED: Enoxaparin(*) 150 MG/ML 1 ML SYRINGE SUBCUT SCH (09:00)
== END 2017-12-11 09:15 | disposition home or self-care (01) | DRG 139 ==
LOC: MED 11:33
PROVIDERS: ADMIT Internal Medicine Hematology & Oncology; ATTEND Internal Medicine Hematology & Oncology
PROC: 0BBK8ZX Excision of Right Lung, Via Natural or Artificial Opening Endoscopic, Diagnostic (ICD-10-PCS; principal; 2017-12-10 14:00)
DX: J18.8 Other pneumonia, unspecified organism (principal); C34.91 Malignant neoplasm of unspecified part of right bronchus or lung; C77.9 Secondary and unspecified malignant neoplasm of lymph node, unspecified; J44.1 Chronic obstructive pulmonary disease with (acute) exacerbation; Z87.01 Personal history of pneumonia (recurrent); F17.210 Nicotine dependence, cigarettes, uncomplicated; R06.09 Other forms of dyspnea; I10 Essential (primary) hypertension; Z86.711 Personal history of pulmonary embolism; Z79.01 Long term (current) use of anticoagulants; J98.8 Other specified respiratory disorders; Z79.52 Long term (current) use of systemic steroids; Z86.718 Personal history of other venous thrombosis and embolism; Z79.899 Other long term (current) drug therapy; Z79.1 Long term (current) use of non-steroidal anti-inflammatories (NSAID); Z88.8 Allergy status to other drugs, medicaments and biological substances
CPT/HCPCS: 36415; 71046; 80053; 85025; 87040; 87070; 87077; 87102; 87106; 87116; 87186; 87205; 87206; 88112; 88305; 94640; 94667; 94668; 99222; 99232; 99233; 99239; A9270-GY; J0330; J1100; J1170; J1650; J2250; J2405; J2543; J2704; J2920; J3010

== ENCOUNTER 2018-02-07 11:45 | Inpatient (IN) | payer BC ==
--- OUTSIDE RECORDS SUMMARY | 2018-02-07 12:14 | XMS REPORT ---
:1965 External Reference #:[id number] Author Organization [employer] Address [address] [place] [address] Phone [phone] Care Team Providers Name Role Phone Marianne Mcneill MD Primary Care Physician Unavailable Payers Type Date Identification Numbers Payment Provider Subscriber Commercial Effective: Policy Number: BS Facets Angel Osorio 2017 [id number] PayID: [id number] [address] [address] [place] [address] Problems Description No Information Family History Date Family Member(s) Problem(s) Comments Father Unknown Father due to MVA () Mother Hypertension Mother Diabetes Type II Mother Anxiety Mother Depression Mother Arthritis Siblings 2 1 brother and 1 sister Social History Type Date Description Comments Marital Status 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 Cigarette Use Former Cigarette Smoker Smoked 1 ppd for 40 years ETOH Use Denies alcohol use Smoking Patient is a former smoker Recreational Drug Use Denies Drug Use Daily Caffeine Consumes on average 1 six pack per day Exercise Type/Frequency Exercises regularly Allergies, Adverse Reactions, Alerts Date Description Reaction Status Severity Comments 09/23/2017 Taxol active Medications Medication Date Status Form Strength Qnty SIG Indications Ordering Provider Albuterol Active Nebulizer 0.63mg/3ML 675ml 1 unit, J20.9 Laly Sulfate 018 Drake carvajal MD every 6 hours, as needed Doxycycline Active Capsules 100mg 14caps one J20.9 Laly Hyclate 018 tablet MD Drake twice daily for 7 days. Lisinopril Active Tablets 10mg qd Marbin Lima M.D. Prednisone Active Tablets 50mg qd Marbin Carty MD Multi Vitamin Active Tablets 1 by Unknown Daily 000 mouth every day Duloxetine HCL Active Caps 20mg 2 by Unknown 000 Part mouth every day Vital Signs Date Vital Result Comment 10/13/2017 Height 66 inches 5'6" Weight 172.50 lb Heart Rate 84 /min BP Systolic Sitting 146 mmHg Lue regular cuff BP Diastolic Sitting 96 mmHg Lue regular cuff Respiratory Rate 16 /min O2 % BldC Oximetry 95 % BMI (Body Mass Index) 27.8 kg/m2 09/23/2017 Height 66 inches 5'6" Weight 174.00 lb Heart Rate 72 /min BP Systolic Sitting 110 mmHg BP Diastolic Sitting 66 mmHg Respiratory Rate 14 /min O2 % BldC Oximetry 98 % BMI (Body Mass Index) 28.1 kg/m2 Neck Circumference in inches 15 Results Test Date Test Result H/L Range Note Laboratory test 10/08/2017 Cytology Non-Supervisor Screen Printing SEE RESULT BELOW 1 finding Lung Cancer Targeted 10/08/2017 LNGPR Result See Comment 2 Gene Panel Summary LNGPR Result See Comment 3 LNGPR Interpretation See Comment 4 LNGPR Additional Information See Comment 5 LNGPR Specimen Cells LNGPR Tissue Id [id number] LNGPR Released By See Comment 6 1 SEE RESULT BELOW Name: WANDA OSORIO : [address]: Laly Juan MD Acct: [id number] Unit: [id number] AGE: 52 Location: OR Re10/08/17 SEX: F Status: ANAI FLOYD SPEC: [id number] SAVANNAH: 10/08/17-[address]: Laly Juan MD REQ: [id number] RECD: 10/08/17 STATUS: SOUT _ ORDERED: FNA-IMG GUID BX, CY ADEQ-ADDL P, LEVEL 4, CYTO ADEQ-1ST P, IMMUNO- QUANT Lung Panel with Rearrangement Tumor has been performed at [place], [place]. 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 specimen is ALK, BRAF, EGFR, ERBB2, HRAS, KRAS, MET, and NRAS wild-type). No reportable fusions were identified involving the ALK, RET, ROS1, or NTRK1 genes. Interpretation: See note [1] below. ASSOCIATIONS BETWEEN GENE MUTATIONS/REARRANGEMENTS AND LUNG CANCER Current data suggests that the efficacy of targeted therapies in patients with non-small cell lung cancer is limited to tumors with mutations or rearrangements in certain genes. Thus, the absence of a detectable mutation and rearrangement within this tumor suggests that targeted therapies to the listed genes may have limited therapeutic value for this patient if the primary origin of the tumor is lung (1-7). REFERENCES 1. Mol Diagn. 2013 Oct;15(4):415-53 (PMID 93208800) 2. Oncologist. 2016 Oct;21(6):684-91 (PMID 77753599) 3. Lancet Oncol. 2016 August;17(5):642-50 (PMID 03421934) 4. Lancet Oncol. 2016 Oct;17(7):984-93 (PMID 99845087) 5. Cancer Discov. 2015 Dec;5(8):842-9 (PMID 73473926) 6. Cancer Discov. 2015 Dec;5(8):850-9 (PMID 71710360) 7. Theresa. Med. 2013 Nov;19(11):2978-72 (PMID 81862112) ADDITIONAL INFORMATION Microscopic examination was performed by a pathologist to identify areas of tumor for enrichment by macrodissection. Next generation sequencing was performed to test for the presence of a mutation within targeted regions of the following genes: EGFR , BRAF, KRAS, HRAS, NRAS, ALK, ERBB2, and MET (exon 14 skipping mutations only). Next generation CONTINUED ON NEXT PAGE DEPARTMENT OF PATHOLOGY, [address] [place] [address] Sunny Ramsey M.D. Director [facility] # [id number] RUN DATE: 10/25/17 [facility] LAB LIVE PAGE 2 Patient: WANDA OSORIO [id number] (Continued) ADDENDUM (Continued) sequencing was performed to test for the presence of a rearrangement/fusion involving the ALK, RET, ROS1 or NTRK1 genes. Mutation nomenclature is based on build GRCh37 (hg19). Rearrangement nomenclature is based on a custom reference sequence using GRCh37 (hg19). For details about gene reference transcripts (GenBank accession numbers) and additional information about this test, see [email or web address] (Test ID LNGPR). CLINICAL CORRELATIONS Test results should be interpreted in context of clinical findings, tumor sampling, histopathology, and other laboratory data. If results obtained do not match other clinical or laboratory findings, please contact the laboratory for possible interpretation. Misinterpretation of results may occur if the information provided is inaccurate or incomplete. This test cannot differentiate between somatic and germline alterations. Additional testing may be necessary to clarify the significance of results if there is a potential hereditary risk. The presence or absence of a mutation or fusion may not be predictive of response to therapy in all patients. TECHNICAL LIMITATIONS This test does not detect large insertions, deletions, or duplications or genomic copy number variants (such as amplification). This assay has been shown to detect >99% of single base substitutions and >99 % of deletions/insertions (up to 50 bp) at >5% allele frequency, respectively. A negative (wild type) result does not rule out the presence of a mutation or rearrangement resulting in a targeted fusion that may be present but below the limits of detection of this assay. The analytical sensitivity of this assay is 5% with a minimum coverage of 100X for mutations and 5% with a minimum of 30 targeted fusion reads for fusions. Rare polymorphisms may be present that could lead to false negative or false positive results. Additional Information MCR CLINICAL TRIALS Possible clinical trials of benefit for this patient can be found at the following sites: 1) ClinicalTrials.gov: www.clinicaltrials.gov/ct2/search/advanced 2) [facility]: www.[place].[facility]/research/clinical-trials/ CONTINUED ON NEXT PAGE DEPARTMENT OF PATHOLOGY, [address] [place] [address] Sunny Ramsey M.D. Director [facility] # [id number] RUN DATE: 10/25/17 [facility] LAB LIVE PAGE 3 Patient: WANDA OSORIO [id number] (Continued) ADDENDUM (Continued) 3) National Cancer [place]: www.cancer.gov/clinicaltrials/search Specimen: Cells Tissue ID: [id number] Released By: Meliza Arroyo M.D. [id number] Laboratory Notes: 1. This test was developed and its performance characteristics determined by [facility] in a manner consistent with CLIA requirements. This test has not been cleared or approved by the U.S. Food and Drug Administration. [address] [address] Addendum Signed (signature on file) Sunny Ramsey MD 1521 Addendum: An immunohistochemical stain for PDL 1 is performed with appropriate controls on formalin fixed cell block material with results as follows PDL 1 positive (0% tumor, greater than 80% associated lymphocytes ) Addendum Signed (signature on file)Donald____ Sunny Ramsey MD 1408 FINAL DIAGNOSIS Lymph node station-7, endobronchial Ultrasound guided, fine needle aspiration -- Malignant- metastatic squamous cell carcinoma. CONTINUED ON NEXT PAGE DEPARTMENT OF PATHOLOGY, [address] [place] [address] Sunny Ramsey M.D. Director [facility] # [id number] RUN DATE: 10/25/17 [facility] LAB LIVE PAGE 4 Patient: WANDA OSORIO [id number] (Continued) FINAL DIAGNOSIS (Continued) An immunohistochemical stain for PDL 1 is pending and will be reported in an addendum. Additional studies for molecular alterations by gene sequencing for targeted therapy is pending and will be reported in an addendum. A cell block was prepared in the evaluation of this specimen. Smears and cell block reveal similar findings. 1. LYMPH NODE - ENDOBROCHIAL ST-7 FINE NEEDLE ASPIRATION CLINICAL HISTORY ST-7 enlarge lymph node. IMMEDIATE INTERPRETATION Pass 1-inadequate All other passes -adequate GROSS DESCRIPTION US guided endobronchial fine needle aspiration x 6 pass(es) with 8 alcohol fixed slides,8 Air dried slide(s) and needle rinse in formalin for cell block, Signed by and Reported on: Sunny Ramsey MD 03/20 1503 END OF REPORT DEPARTMENT OF PATHOLOGY, [address] [place] [address] Sunny Ramsey M.D. 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 specimen is ALK, BRAF, EGFR, ERBB2, HRAS, KRAS, MET, and NRAS wild-type). No reportable fusions were identified involving the ALK, RET, ROS1, or NTRK1 genes. 4 ASSOCIATIONS BETWEEN GENE MUTATIONS/REARRANGEMENTS AND LUNG CANCER Current data suggests that the efficacy of targeted therapies in patients with non-small cell lung cancer is limited to tumors with mutations or rearrangements in certain genes. Thus, the absence of a detectable mutation and rearrangement within this tumor suggests that targeted therapies to the listed genes may have limited therapeutic value for this patient if the primary origin of the tumor is lung (1-7). REFERENCES 1. Mol Diagn. 2013 Oct;15(4):415-53 (PMID 40502487) 2. Oncologist. 2016 Oct;21(6):684-91 (PMID 24073324) 3. Lancet Oncol. 2016 August;17(5):642-50 (PMID 54166342) 4. Lancet Oncol. 2016 Oct;17(7):984-93 (PMID 14431181) 5. Cancer Discov. 2015 Dec;5(8):842-9 (PMID 63940061) 6. Cancer Discov. 2015 Dec;5(8):850-9 (PMID 21496268) 7. Theresa. Med. 2013 Mar;19(11):7110-72 (PMID 83861798) ADDITIONAL INFORMATION Microscopic examination was performed by a pathologist to identify areas of tumor for enrichment by macrodissection. Next generation sequencing was performed to test for the presence of a mutation within targeted regions of the following genes: EGFR, BRAF, KRAS, HRAS, NRAS, ALK, ERBB2, and MET (exon 14 skipping mutations only). Next generation sequencing was performed to test for the presence of a rearrangement/fusion involving the ALK, RET, ROS1 or NTRK1 genes. Mutation nomenclature is based on build GRCh37 (hg19). Rearrangement nomenclature is based on a custom reference sequence using GRCh37 (hg19). For details about gene reference transcripts (GenBank accession numbers) and additional information about this test, see [email or web address] (Test ID LNGPR). CLINICAL CORRELATIONS Test results should be interpreted in context of clinical findings, tumor sampling, histopathology, and other laboratory data. If results obtained do not match other clinical or laboratory findings, please contact the laboratory for possible interpretation. Misinterpretation of results may occur if the information provided is inaccurate or incomplete. This test cannot differentiate between somatic and germline alterations. Additional testing may be necessary to clarify the significance of results if there is a potential hereditary risk. The presence or absence of a mutation or fusion may not be predictive of response to therapy in all patients. TECHNICAL LIMITATIONS This test does not detect large insertions, deletions, or duplications or genomic copy number variants (such as amplification). This assay has been shown to detect >99% of single base substitutions and >99% of deletions/insertions (up to 50 bp) at >5% allele frequency, respectively. A negative (wild type) result does not rule out the presence of a mutation or rearrangement resulting in a targeted fusion that may be present but below the limits of detection of this assay. The analytical sensitivity of this assay is 5% with a minimum coverage of 100X for mutations and 5% with a minimum of 30 targeted fusion reads for fusions. Rare polymorphisms may be present that could lead to false negative or false positive results. TEST CLASSIFICATION This test was developed and its performance characteristics determined by [facility] in a manner consistent with CLIA requirements. This test has not been cleared or approved by the U.S. Food and Drug Administration. 5 CLINICAL TRIALS Possible clinical trials of benefit for this patient can be found at the following sites: 1) ClinicalTrials.gov: www.clinicaltrials.gov/ct2/search/advanced 2) [facility]: www.[facility]/research/clinical-trials/ 3) National Cancer [place]: www.cancer.gov/clinicaltrials/search 6 RESULT: Meliza Arroyo M.D. [id number] Test Performed by: [address] [address] Procedures Date CPT Code Description Status 12/10/2017 03375 bronchoscopy w/bx(s) (hosp) Completed 12/10/2017 86893 Bronchoscopy With Bronchial Alveolar Lavage Completed 10/08/2017 44574 With Endobronchial Ultrasound Guided Completed 10/08/2017 33589 bronchoscopy w/bx(s) (hosp) Completed 07/08/2017 81653 EKG, Interpretation Only Completed Encounters Type Date Location Provider CPT E/M Dx Office Visit 12/10/2017 [facility] [address] J44.1 12:04p [facility] F17.210 Z87.01 I10 Office Visit 12/09/2017 12:03p [facility] [address] J44.1 [facility] F17.210 Z87.01 I10 Office Visit 12/08/2017 12:03p [facility] [address] J44.1 [facility] F17.210 Z87.01 I10 Office Visit 11/30/2017 9:39a [facility] Tian Amin, [address] J18.9 Infectious Diseases M.DTereso C34.90 J44.9 Office Visit 11/28/2017 3:30p [facility] [place]I [place] [address] J44.0 Hospitalists J18.9 J44.1 C34.90 Office Visit 11/19/2017 10:11a [facility] [address] J44.0 [facility] J18.1 F17.210 J44.1 C34.90 Office Visit 11/18/2017 10:10a [facility] [address] J44.0 [facility] J18.1 F17.210 J44.1 C34.90 Office Visit 10/13/2017 11:45a [facility] [address] J20.9 [facility] C34.90 Office Visit 09/23/2017 7:00a [facility] [address] C34.90 [facility] R59.0 Z87.891 R06.83 E66.09 Z68.28 Plan of Care 10/13/2017 - Laly Juan MDJ20.9 Acute bronchitis, unspecifiedNew Medication :Albuterol Sulfate 0.63 mg/3MLDoxycycline Hyclate 100 mgFollow up:1 dggfmH16.90 Malignant neoplasm of unsp part of unsp bronchus or lung
[2018-02-07] MEDS ORDERED: NS 0.9% 1000 ML* 1,000 ML IV ONE ×2 (12:17→14:52)
[2018-02-07] MEDS ORDERED: Albuterol/Ipratropium NEB.SOL* Albuterol 2.5 MG/Ipratropium 0.5 MG 3 ML INH ONE (12:18)
[2018-02-07] MEDS ORDERED: methylPREDNISolone 125 MG* 2 ML VIAL IV ONE (12:18)
[2018-02-07 12:37] LABS: ABS Basophils 0 10^3/ul (0-0.2); ABS Eosinophils 0.1 10^3/ul (0-0.6); ABS Lymphocytes 0.4 10^3/ul (1.0-4.8); ABS Monocytes 0 10^3/ul (0-0.8); ABS Neutrophils 6.5 10^3/ul (1.5-7.7); ABS Nucleated RBC 0 10^3/ul; Eosinophil % 1.1 % (0-6); Hematocrit 29 % (35-47); Hemoglobin 9.4 g/dl (12.0-16.0); Lymphocyte % 5.1 % (25-47); Mean Corpuscular HGB Conc 33 g/dl (31-36); Mean Corpuscular Hemoglobin 28 pg (27-31); Mean Corpuscular Volume 85 fL (80-97); Mean Platelet Volume 6.3 um3 (7.4-10.4); Nucleated Red Blood Cells % 0; Platelet Count 153 10^3/ul (150-450); Red Blood Count 3.38 10^6/ul (4.00-5.40); Red Cell Distribution Width 19 % (10.5-15)
[2018-02-07 12:44] LABS: INR 1.26 (0.77-1.02)
[2018-02-07] MEDS ORDERED: Cefepime 2 GM in Dextrose(*) 2 GM/50 ML BAG IV ONE (12:53)
[2018-02-07 12:56] LABS: EGFR Non-African American 82.7 (>60)
--- NOTE | 2018-02-07 13:12 | RAD ---
HISTORY: COPD, lung CA with SOB COMPARISONS: January 06, 2018 VIEWS: 4: Frontal dual-energy and lateral views of the chest. FINDINGS: CARDIOMEDIASTINAL SILHOUETTE: The cardiomediastinal silhouette is normal. GUS: The gus are normal. PLEURA: The costophrenic angles are sharp. No pleural abnormalities are noted. LUNG PARENCHYMA: Again noted is right perihilar opacification that has increased in size compared to the January 06, 2013 examination. ABDOMEN: The upper abdomen is clear. There is no subphrenic gas. BONES AND SOFT TISSUES: No bone or soft tissue abnormalities are noted. OTHER: None. IMPRESSION: INTERVAL INCREASE IN SIZE OF THE RIGHT PERIHILAR MASS.
[2018-02-07] MEDS ORDERED: Ondansetron INJ* 2 MG/ML VIAL IV ONE (13:27)
[2018-02-07] MEDS ORDERED: HYDROmorphone INJ* 2 MG/ML CARPUJECT SYRINGE IV SLOW PU ONE ×2 (13:36→15:04)
--- NOTE | 2018-02-07 13:51 | ED ---
Shortness of Breath - HPI Summary HPI Summary: A 52 y/o female with stage 3 lung cancer currently undergoing chemotherapy presents to [facility] c/o SOB and dyspnea since 02/03/18. She has had lung cancer for a year. She has had a pleural effusion that was never drained. She denies any fevers or abdominal pain. She c/o N/V, edema of her hands, back pain and CP. She has compression fractures in her back. She has a history of COPD. She is currently on steroids. - History of Current Complaint Chief Complaint: EDShortnessOfBreath Time Seen by Provider: 02/07/18 12:09 Onset/Duration: Gradual Onset, Lasting Days Current Severity: Moderate Associated Signs & Symptoms: Chest Pain Unrelated to Cough - Allergy/Home Medications Allergies/Adverse Reactions: Allergies Allergy/AdvReac Type Severity Reaction Status Date / Time paclitaxel Allergy Severe Anaphylatic Verified 02/07/18 11:52 Shock Home Medications: Home Medications Benzonatate CAP* [Tessalon 100 MG CAP*] 100 mg PO TID 02/07/18 [History Confirmed 02/07/18] Fluconazole [Fluconazole 200 mg tab] 200 mg PO DAILY 02/07/18 [History Confirmed 02/07/18] Ondansetron HCl [Zofran 4 MG TAB] 4 mg PO Q4H 02/07/18 [History Confirmed ] PMH/Surg Hx/FS Hx/Imm Hx Endocrine/Hematology History: Denies: Hx Diabetes Cardiovascular History: Reports: Hx Hypertension Denies: Hx Pacemaker/ICD Respiratory History: Reports: Hx Chronic Obstructive Pulmonary Disease (COPD), Other Respiratory Problems/Disorders - lung cancer, recent pneumonia History: Denies: Hx Renal Disease Sensory History: Denies: Hx Contacts or Glasses, Hx Hearing Aid Opthamlomology History: Denies: Hx Contacts or Glasses Psychiatric History: Denies: Hx Panic Disorder - Cancer History Cancer Type, Location and Year: LUNG CA Hx Chemotherapy: Yes - finished jun 2017 - Surgical History Surgery Procedure, Year, and Place: CHOLECYSTECTOMY 2014 - [place]. HYSTERECTOMY 2010 - Hx Anesthesia Reactions: Yes - PONV - Immunization History Date of Influenza Vaccine: 01/2018 Infectious Disease History: No Infectious Disease History: Denies: Traveled Outside the [place] in Last 30 Days - Family History Known Family History: Negative: Cardiac Disease, Hypertension, Diabetes - Social History Alcohol Use: None Substance Use Type: Reports: Prescribed Substance Use Comment - Amount & Last Used: oxycodone Smoking Status (MU): Former Smoker Type: Cigarettes Amount Used/How Often: 1 ppd for 40 years Review of Systems Negative: Fever Positive: Chest Pain Positive: Shortness Of Breath, Other - positive: dyspnea Positive: Vomiting, Nausea. Negative: Abdominal Pain Positive: Myalgia - back, Edema All Other Systems Reviewed And Are Negative: Yes Physical Exam - Summary Physical Exam Summary: Appearance: Ill appearing, mild distress Skin: warm, dry, reflects adequate perfusion Head/face: normal Eyes: EOMI, KENYA ENT: mucous membranes moist, no nasal discharge Neck: supple, non-tender Respiratory: diffuse wheezing, breath sounds present,lung sounds in bases, tachypnic with excessive muscle movement, increased work of breathing Cardiovascular: tachycardic, regular rhythm, pulses symmetrical Abdomen: non-tender, soft Bowel Sounds: present Musculoskeletal: normal, strength/ROM intact Neuro: normal, sensory motor intact, A&Ox3 Triage Information Reviewed: Yes Vital Signs On Initial Exam: Initial Vitals Temp Pulse Resp BP Pulse Ox 97.9 F 114 24 125/67 100 02/07/18 11:48 02/07/18 11:48 02/07/18 11:48 02/07/18 11:48 02/07/18 11:48 Vital Signs Reviewed: Yes Diagnostics - Vital Signs Vital Signs Temp Pulse Resp BP Pulse Ox 02/07/18 12:35 105 24 100 02/07/18 12:01 99 100 02/07/18 11:59 101 133/86 98 02/07/18 11:48 97.9 F 114 24 125/67 100 - Laboratory Lab Results: Lab Results 02/07/18 02/07/18 02/07/18 Range/Units 12:27 12:27 12:27 WBC 7.0 (3.5-10.8) 10^3/ul RBC 3.38 L (4.00-5.40) 10^6/ul Hgb 9.4 L (12.0-16.0) g/dl Hct 29 L (35-47) % MCV 85 (80-97) fL MCH 28 (27-31) pg MCHC 33 (31-36) g/dl RDW 19 H (10.5-15) % Plt Count 153 (150-450) 10^3/ul MPV 6.3 L (7.4-10.4) um3 Neut % (Auto) 93.3 H (38-83) % Lymph % (Auto) 5.1 L (25-47) % [place] % (Auto) 0.4 (0-7) % Eos % (Auto) 1.1 (0-6) % Baso % (Auto) 0.1 (0-2) % Absolute Neuts (auto) 6.5 (1.5-7.7) 10^3/ul Absolute Lymphs (auto) 0.4 L (1.0-4.8) 10^3/ul Absolute Monos (auto) 0 (0-0.8) 10^3/ul Absolute Eos (auto) 0.1 (0-0.6) 10^3/ul Absolute Basos (auto) 0 (0-0.2) 10^3/ul Absolute Nucleated RBC 0 10^3/ul Nucleated RBC % 0 INR (Anticoag Therapy) (0.77-1.02) Sodium 143 (135-145) mmol/L Potassium 3.7 (3.5-5.0) mmol/L Chloride 102 (101-111) mmol/L Carbon Dioxide 32 (22-32) mmol/L Anion Gap 9 (2-11) mmol/L BUN 15 (6-24) mg/dL Creatinine 0.74 (0.51-0.95) mg/dL Est GFR ( Amer) 100.1 (>60) Est GFR (Non-Af Amer) 82.7 (>60) BUN/Creatinine Ratio 20.3 H (8-20) Glucose 100 (70-100) mg/dL Lactic Acid 1.1 (0.5-2.0) mmol/L Calcium 9.3 (8.6-10.3) mg/dL Total Bilirubin 0.50 (0.2-1.0) mg/dL AST 12 L (13-39) U/L ALT 14 (7-52) U/L Alkaline Phosphatase 57 (34-104) U/L Total Creatine Kinase 21 (10-223) U/L Troponin I 0.01 (<0.04) ng/mL C-Reactive Protein 115.16 H (<8.01) mg/L B-Natriuretic Peptide ( - 100) pg/mL Total Protein 6.4 (6.4-8.9) g/dL Albumin 3.5 (3.2-5.2) g/dL Globulin 2.9 (2-4) g/dL Albumin/Globulin Ratio 1.2 (1-3) Influenza A (Rapid) (Negative) Influenza B (Rapid) (Negative) 02/07/18 02/07/18 02/07/18 Range/Units 12:27 12:27 12:52 WBC (3.5-10.8) 10^3/ul RBC (4.00-5.40) 10^6/ul Hgb (12.0-16.0) g/dl Hct (35-47) % MCV (80-97) fL MCH (27-31) pg MCHC (31-36) g/dl RDW (10.5-15) % Plt Count (150-450) 10^3/ul MPV (7.4-10.4) um3 Neut % (Auto) (38-83) % Lymph % (Auto) (25-47) % [place] % (Auto) (0-7) % Eos % (Auto) (0-6) % Baso % (Auto) (0-2) % Absolute Neuts (auto) (1.5-7.7) 10^3/ul Absolute Lymphs (auto) (1.0-4.8) 10^3/ul Absolute Monos (auto) (0-0.8) 10^3/ul Absolute Eos (auto) (0-0.6) 10^3/ul Absolute Basos (auto) (0-0.2) 10^3/ul Absolute Nucleated RBC 10^3/ul Nucleated RBC % INR (Anticoag Therapy) 1.26 H (0.77-1.02) Sodium (135-145) mmol/L Potassium (3.5-5.0) mmol/L Chloride (101-111) mmol/L Carbon Dioxide (22-32) mmol/L Anion Gap (2-11) mmol/L BUN (6-24) mg/dL Creatinine (0.51-0.95) mg/dL Est GFR ( Amer) (>60) Est GFR (Non-Af Amer) (>60) BUN/Creatinine Ratio (8-20) Glucose (70-100) mg/dL Lactic Acid (0.5-2.0) mmol/L Calcium (8.6-10.3) mg/dL Total Bilirubin (0.2-1.0) mg/dL AST (13-39) U/L ALT (7-52) U/L Alkaline Phosphatase (34-104) U/L Total Creatine Kinase (10-223) U/L Troponin I (<0.04) ng/mL C-Reactive Protein (<8.01) mg/L B-Natriuretic Peptide 160 H ( - 100) pg/mL Total Protein (6.4-8.9) g/dL Albumin (3.2-5.2) g/dL Globulin (2-4) g/dL Albumin/Globulin Ratio (1-3) Influenza A (Rapid) Negative (Negative) Influenza B (Rapid) Negative (Negative) Result Diagrams: 02/07/18 12:27 02/07/18 12:27 Lab Statement: Any lab studies that have been ordered have been reviewed, and results considered in the medical decision making process. - Radiology CXR Xray Interpretation: Positive (See Comments) Radiology Interpretation Completed By: Radiologist - INTERVAL INCREASE IN SIZE OF THE RIGHT PERIHILAR MASS. This report has been reviewed by the ED physician. - CT chest/thorax CTA CT Interpretation: Positive (See Comments) CT Interpretation Completed By: Radiologist - #. Negative for pulmonary embolism. #. Confluent tumor encasing the RIGHT hilum with involvement of the upper, lower, and middle lobes with significant interval increase in size and probable postobstructive pneumonitis. The mass encases bronchovascular structures and measures approximate 9 cm AP by 5 cm transverse compared with 7.5 x 3.5 cm previously. #. New small dependent RIGHT pleural effusion. #. Worsening of mediastinal lymphadenopathy. #. Interval enlargement of LEFT adrenal mass worrisome for metastasis. #. Unchanged finding of severe anterior and moderate middle column compression fracture of the T7 vertebral body with degree of osteosclerosis concerning for potential metastasis given the clinical context. No new thoracic osseous lesions or fractures evident. This report has been reviewed by the ED physician. - Ultrasound No standard instances Ultrasound Interpretation: No Acute Changes Ultrasound Interpretation Completed By: ED Physician - No significant pleural effusion. The ED provider has reviewed this report. - EKG 12:20 Cardiac Rate: Tachycardia - 148 bpm EKG Rhythm: Sinus Tachycardia ST Segment: Non-Specific EKG Interpretation: ventricular bigeminy, normal axis 13:54 Cardiac Rate: Tachycardia - 186bp EKG Rhythm: Atrial Fibrillation ST Segment: Non-Specific EKG Interpretation: rapid ventricular response, normal axis 15:48 Cardiac Rate: NL - 99bpm EKG Rhythm: Sinus Rhythm ST Segment: Normal EKG Interpretation: nl axis, nl intervals, low voltage Re-Evaluation - Re-Evaluation First Eval Re-Evaluation Time: 14:00 Change: Worse Comment: patient is in A-fib, going to give patient calcium channel puneet Course/Dx - Course Course Of Treatment: Patient was significant comorbidity with COPD, lung cancer on chemotherapy presents with dyspnea and diffuse wheezing. She also is having a lot of ectopy on arrival. After bronchodilators she was having new arrhythmia. This proved to be rapid atrial fibrillation. She was given diltiazem bolus and drip and despite this her heart rates continue in the 150s to 160s. Her blood pressure dropped and this medication was discontinued. A consult was made to cardiology for possible cardioversion or other medications. The patient was hydrated and oncology was contacted. They came to the ER to evaluate. The patient then spontaneously converted. Her heart rate also normalized less than 100. CT scan of the chest shows no evidence of pulmonary embolism or infiltrate but there is significant worsening of her cancer. There is also evidence for metastasis to the adrenal gland on the left side. She is admitted haven't been treated with bronchodilators, IV antibiotics, IV steroids. - Diagnoses Differential Diagnosis/HQI/PQRI: Positive: COPD Exacerbation - Malignant effusion, Pneumothorax, Pulmonary Embolism, Pulmonary Edema, Other Provider Diagnoses: COPD exacerbation, History of lung cancer, Dyspnea, Rapid atrial fibrillation - Physician Notifications Discussed Care of Patient With: Anton Russo Time Discussed With Above Provider: 13:42 Instructed by Provider To: Admit As Inpatient - Spoke with Dr. Aguilar at 15:05 about the patient. - Critical Care Time Critical Care Time: 75-104 min - CCT is EXCLUSIVE of separately billable procedures. Discharge - Sign-Out/Discharge Documenting (check all that apply): Patient Departure - admited - Discharge Plan Condition: Guarded Disposition: ADMITTED TO [facility] - Billing Disposition and Condition Condition: GUARDED Disposition: Admitted to [facility] - Attestation Statements Document Initiated by Scribe: Yes Documenting Scribe: Tk Hdz Provider For Whom Scribe is Documenting (Include Credential): Dhruv Menon MD Scribe Attestation: I, Tk Hdz, scribed for Dhruv Menon MD on 02/07/18 at 1725. Scribe Documentation Reviewed: Yes Provider Attestation: The documentation as recorded by the Tk mota accurately reflects the service I personally performed and the decisions made by me, Dhruv Menon MD
[2018-02-07] MEDS ORDERED: Diltiazem IV* 5 MG/ML 5 ML VIAL (for loading dose/IV Push) (25 MG) IV SLOW PU ONE (14:00)
[2018-02-07] MEDS ORDERED: Diltiazem IV VIAL* 125 MG in NS 0.9% 100 ML* 100 ML IVPB ONE (14:00)
[2018-02-07] MEDS ORDERED: HYDROmorphone INJ1* 1 MG/ML SYRINGE ONE (14:18)
[2018-02-07] MEDS ORDERED: Iohexol 350* (CONTRAST) 500 ML MDV IV ONE (14:55)
[2018-02-07] MEDS ORDERED: Diltiazem DRIP* 100 MG in NS 100 ML ADDV.BAG IVPB SCH (15:00)
--- NOTE | 2018-02-07 15:54 | RAD ---
INDICATION: Atrial fibrillation. Dyspnea. Lung cancer. COMPARISON: January 06, 2018 CT. TECHNIQUE: Multidetector CT images were obtained from the lung apices to the upper abdomen with 69 mL Omnipaque 350 IV contrast. Pulmonary angiogram protocol. Multiplanar reformation including with maximum intensity projection. REPORT: Advanced emphysema. Confluent tumor encasing the RIGHT hilum with involvement of the upper, lower, and middle lobes with significant interval increase in size and probable postobstructive pneumonitis. The mass encases bronchovascular structures and measures approximate 9 cm AP by 5 cm transverse compared with 7.5 x 3.5 cm previously. Small focus of peripheral consolidation at the apical posterior segment of the LEFT upper lobe. New small dependent RIGHT pleural effusion. 7 cm short axis precarinal lymph node increased from 1.4 cm previously. 1.4 cm short axis subcarinal lymph node without significant change. Subcentimeter short axis prevascular lymph nodes without significant change. Moderate circumferential mural thickening of the esophagus from the level of the man[place] distal appears increased. Negative for cardiomegaly or pericardial effusion. No filling defects are identified from the main to the subsegmental pulmonary arteries to indicate presence of a pulmonary embolism. Images of the upper abdomen are remarkable for fatty infiltration of the liver. 2.5 x 2.1 cm low-density LEFT adrenal mass is concerning for metastasis given interval growth compared with 2.3 x 1.8 cm previously. Unchanged finding of severe anterior and moderate middle column compression fracture of the T7 vertebral body with degree of osteosclerosis concerning for potential metastasis given the clinical context. No new thoracic osseous lesions or fractures evident. IMPRESSION: #. Negative for pulmonary embolism. #. Confluent tumor encasing the RIGHT hilum with involvement of the upper, lower, and middle lobes with significant interval increase in size and probable postobstructive pneumonitis. The mass encases bronchovascular structures and measures approximate 9 cm AP by 5 cm transverse compared with 7.5 x 3.5 cm previously. #. New small dependent RIGHT pleural effusion. #. Worsening of mediastinal lymphadenopathy. #. Interval enlargement of LEFT adrenal mass worrisome for metastasis. #. Unchanged finding of severe anterior and moderate middle column compression fracture of the T7 vertebral body with degree of osteosclerosis concerning for potential metastasis given the clinical context. No new thoracic osseous lesions or fractures evident.
[2018-02-07] MEDS: Albuterol/Ipratropium NEB.SOL* Albuterol 2.5 MG/Ipratropium 0.5 MG 3 ML INH SCH ×3 (16:00→23:10)
[2018-02-07] MEDS ORDERED: fentaNYL PATCH 75 MCG/HR* 75 MCG TRANSDERM SCH (16:00)
[2018-02-07] MEDS ORDERED: NS 0.9% 1000 ML* 1,000 ML IV SCH (16:00)
[2018-02-07] MEDS ORDERED: fentaNYL PATCHs 100 MCG/HR TRANSDERM SCH (17:00)
[2018-02-07] MEDS: Fluconazole 100 MG IVPREMIX(*) 100 MG/50 ML BAG IVPB SCH (17:08)
[2018-02-07] MEDS ORDERED: Piperacillin/Tazobac ADVAN(*) 3.375 GM in NS 0.9% 100 ML* 100 ML IVPB ONE (17:12)
[2018-02-07] MEDS ORDERED: Zosyn per Pharmacy* NOTE FOLLOW UP SCH (18:00)
[2018-02-07] MEDS: Ondansetron INJ* 2 MG/ML VIAL IV PRN ×2 (18:25→23:45)
[2018-02-07] MEDS: Morphine INJ* 4 MG/ML 1 ML SYRINGE (NEW SYRINGE VERSION) IV PRN ×2 (19:41→23:44)
[2018-02-07] MEDS: fentaNYL Patch Check Q Shift 1 NOTE SCH (20:11)
[2018-02-07] MEDS: Apixaban* 5 MG TAB PO SCH (22:14)
[2018-02-07] MEDS: Metoprolol Tartrate TAB* 25 MG PO SCH (22:14)
[2018-02-07] MEDS: ZOSYN 3.375 GM Q8H per EXTENDED INFUSION IVPB SCH ×2 (22:16)
[2018-02-08] MEDS: Albuterol/Ipratropium NEB.SOL* Albuterol 2.5 MG/Ipratropium 0.5 MG 3 ML INH SCH ×5 (03:04→19:37)
[2018-02-08] MEDS: Benzonatate CAP* 100 MG PO PRN ×2 (03:17→08:47)
[2018-02-08] MEDS: GuaiFENesin DM* 5 ML UDC PO PRN ×2 (03:17→08:47)
[2018-02-08] MEDS: Morphine INJ* 4 MG/ML 1 ML SYRINGE (NEW SYRINGE VERSION) IV PRN ×5 (03:17→18:32)
[2018-02-08] MEDS: ZOSYN 3.375 GM Q8H per EXTENDED INFUSION IVPB SCH ×6 (06:33→23:02)
[2018-02-08 06:36] LABS: ABS Basophils 0 10^3/ul (0-0.2); ABS Eosinophils 0 10^3/ul (0-0.6); ABS Lymphocytes 0.4 10^3/ul (1.0-4.8); ABS Monocytes 0 10^3/ul (0-0.8); ABS Neutrophils 5.7 10^3/ul (1.5-7.7); ABS Nucleated RBC 0 10^3/ul; Eosinophil % 0 % (0-6); Hematocrit 25 % (35-47); Hemoglobin 8.1 g/dl (12.0-16.0); Lymphocyte % 5.9 % (25-47); Mean Corpuscular HGB Conc 32 g/dl (31-36); Mean Corpuscular Hemoglobin 28 pg (27-31); Mean Corpuscular Volume 86 fL (80-97); Mean Platelet Volume 6.6 um3 (7.4-10.4); Nucleated Red Blood Cells % 0; Platelet Count 115 10^3/ul (150-450); Red Blood Count 2.93 10^6/ul (4.00-5.40); Red Cell Distribution Width 19 % (10.5-15); White Blood Count 6.1 10^3/ul (3.5-10.8)
[2018-02-08 06:52] LABS: EGFR Non-African American 85.4 (>60)
[2018-02-08] MEDS: Ondansetron INJ* 2 MG/ML VIAL IV PRN ×2 (06:55→18:18)
[2018-02-08] MEDS: fentaNYL Patch Check Q Shift 1 NOTE SCH ×2 (06:55→18:46)
[2018-02-08] MEDS: Apixaban* 5 MG TAB PO SCH ×2 (08:46→23:01)
[2018-02-08] MEDS: Metoprolol Tartrate TAB* 25 MG PO SCH ×2 (08:46→23:01)
[2018-02-08] MEDS: methylPREDNISolone 125 MG* 2 ML VIAL IV SCH ×2 (08:47→23:00)
[2018-02-08] MEDS: DULoxetine DR CAP* 60 MG CAP.DR PO SCH (08:47)
--- NOTE | 2018-02-08 09:37 | PN ---
Progress Note - Progress Note Date of Service: 02/08/18 SOAP: Subjective: [Wanda reports feeling much better this am. She was able to swallow without any difficulty for breakfast this morning. Still coughing frequently and has pain in her back.] Objective: [ Vital Signs Temp Pulse Resp BP Pulse Ox 97.0 F 88 24 128/70 97 02/08/18 07:17 02/08/18 07:32 02/08/18 08:46 02/08/18 07:17 02/08/18 07:32 Albuterol/Ipratropium (Duoneb (Albuterol 2.5 Mg/Ipratropium 0.5 Mg)) 1 neb INH Q4H [facility] Last Admin: 02/08/18 07:27 Dose: 1 neb Benzonatate (Tessalon Cap*) 200 mg PO Q8H PRN PRN Reason: COUGH Duloxetine HCl (Cymbalta Cap*) 60 mg PO DAILY [facility] Last Admin: 02/08/18 08:47 Dose: 60 mg Fentanyl (Duragesic Patch 100 Mcg/Hr *) 100 mcg TRANSDERM Q72H [facility] Last Admin: 02/07/18 18:24 Dose: 100 mcg Guaifenesin/Dextromethorphan (Robitussin Dm*) 10 ml PO Q4H PRN PRN Reason: COUGH Heparin Sodium (Porcine) (Heparin Flush Port (Ivad)) 5 ml FLUSH DAILY [facility]; Protocol Last Admin: 02/08/18 08:21 Dose: Not Given Hydromorphone HCl (Dilaudid Tab*) 4 mg PO Q4H PRN PRN Reason: PAIN Fluconazole/Sodium Chloride (Diflucan 100 Mg Ivpremix(*)) 100 mg in 50 mls @ 100 mls/hr IVPB Q24H [facility] Last Admin: 02/07/18 17:08 Dose: 100 mls/hr Piperacillin Sod/Tazobactam (Sod 3.375 gm/ Sodium Chloride) 100 mls @ 25 mls/ hr IVPB Q8H [facility] Last Admin: 02/08/18 06:33 Dose: 25 mls/hr Methylprednisolone Sodium Succinate (Solu-Medrol 125mg *) 60 mg IV Q12H [facility] Last Admin: 02/08/18 08:47 Dose: 60 mg Metoprolol Tartrate (Lopressor Tab*) 25 mg PO BID [facility] Last Admin: 02/08/18 08:46 Dose: 25 mg Morphine Sulfate (Morphine Inj (Syringe)*) 4 mg IV Q2H PRN PRN Reason: PAIN Last Admin: 02/08/18 08:46 Dose: 4 mg Ondansetron HCl (Zofran Inj*) 4 mg IV Q4H PRN PRN Reason: NAUSEA Last Admin: 02/08/18 06:55 Dose: 4 mg Pharmacy Consult (Zosyn Per Pharmacy*) 1 note FOLLOW UP .ZOSYN PER PHARMACY [facility] Pharmacy Profile Note (Fentanyl Patch Check Q Shift) 1 note N/A [id number] [facility] Last Admin: 02/08/18 06:55 Dose: 1 note Laboratory Results - last 24 hr 02/07/18 02/07/18 02/07/18 12:27 12:27 12:27 WBC 7.0 RBC 3.38 L Hgb 9.4 L Hct 29 L MCV 85 MCH 28 MCHC 33 RDW 19 H Plt Count 153 MPV 6.3 L Neut % (Auto) 93.3 H Lymph % (Auto) 5.1 L [place] % (Auto) 0.4 Eos % (Auto) 1.1 Baso % (Auto) 0.1 Absolute Neuts (auto) 6.5 Absolute Lymphs (auto) 0.4 L Absolute Monos (auto) 0 Absolute Eos (auto) 0.1 Absolute Basos (auto) 0 Absolute Nucleated RBC 0 Nucleated RBC % 0 INR (Anticoag Therapy) Sodium 143 Potassium 3.7 Chloride 102 Carbon Dioxide 32 Anion Gap 9 BUN 15 Creatinine 0.74 Est GFR ( Amer) 100.1 Est GFR (Non-Af Amer) 82.7 BUN/Creatinine Ratio 20.3 H Glucose 100 Lactic Acid 1.1 Calcium 9.3 Total Bilirubin 0.50 AST 12 L ALT 14 Alkaline Phosphatase 57 Total Creatine Kinase 21 Troponin I 0.01 C-Reactive Protein 115.16 H B-Natriuretic Peptide Total Protein 6.4 Albumin 3.5 Globulin 2.9 Albumin/Globulin Ratio 1.2 Influenza A (Rapid) Influenza B (Rapid) 02/07/18 02/07/18 02/07/18 12:27 12:27 12:52 WBC RBC Hgb Hct MCV MCH MCHC RDW Plt Count MPV Neut % (Auto) Lymph % (Auto) [place] % (Auto) Eos % (Auto) Baso % (Auto) Absolute Neuts (auto) Absolute Lymphs (auto) Absolute Monos (auto) Absolute Eos (auto) Absolute Basos (auto) Absolute Nucleated RBC Nucleated RBC % INR (Anticoag Therapy) 1.26 H Sodium Potassium Chloride Carbon Dioxide Anion Gap BUN Creatinine Est GFR ( Amer) Est GFR (Non-Af Amer) BUN/Creatinine Ratio Glucose Lactic Acid Calcium Total Bilirubin AST ALT Alkaline Phosphatase Total Creatine Kinase Troponin I C-Reactive Protein B-Natriuretic Peptide 160 H Total Protein Albumin Globulin Albumin/Globulin Ratio Influenza A (Rapid) Negative Influenza B (Rapid) Negative 02/08/18 02/08/18 06:15 06:15 WBC 6.1 RBC 2.93 L Hgb 8.1 L Hct 25 L MCV 86 MCH 28 MCHC 32 RDW 19 H Plt Count 115 L MPV 6.6 L Neut % (Auto) 93.5 H Lymph % (Auto) 5.9 L [place] % (Auto) 0.6 Eos % (Auto) 0 Baso % (Auto) 0 Absolute Neuts (auto) 5.7 Absolute Lymphs (auto) 0.4 L Absolute Monos (auto) 0 Absolute Eos (auto) 0 Absolute Basos (auto) 0 Absolute Nucleated RBC 0 Nucleated RBC % 0 INR (Anticoag Therapy) Sodium 143 Potassium 4.4 Chloride 106 Carbon Dioxide 30 Anion Gap 7 BUN 12 Creatinine 0.72 Est GFR ( Amer) 103.3 Est GFR (Non-Af Amer) 85.4 BUN/Creatinine Ratio 16.7 Glucose 160 H Lactic Acid Calcium 8.9 Total Bilirubin 0.30 AST 12 L ALT 14 Alkaline Phosphatase 50 Total Creatine Kinase Troponin I C-Reactive Protein B-Natriuretic Peptide Total Protein 6.0 L Albumin 3.3 Globulin 2.7 Albumin/Globulin Ratio 1.2 Influenza A (Rapid) Influenza B (Rapid) Exam: Gen: Chronically ill and cushingoid appearance in NAD HEENT: No thrush, MMM CV: RRR, no m/r/g Resp: diffuse wheezing and occasional rhonchi Abd: soft, nonTTP Ext: No edema] Assessment: [52 yo female with metastatic NSCLC, recently started on 4th line therapy who presented with c/o increasing dyspnea and severe dysphagia, unable to swallow even water. Initial CT imaging demonstrated distal esophageal mucosal thickening, in addition to what appeared to be mid esophageal mass. Additionally, there appeared to be progression in her tumor size, lymphadenopathy and adrenal mass.] Plan: [1. Dysphagia - spontaneously resolved this am - noted esophageal mass and distal mucosal thickening on CT - given the sudden resolution of symptoms question whether the mass seen on CT was a food ball that spontaneously passed - cont soft diet - requested GI consult for EGD to help determine whether this is a benign and reversible process or represents progressive malignancy - discussed with patient if there is an esophageal mass seen identified on EGD she will need to decide whether she would like to consider Gtube and cont palliative chemo or transition to Hospice 2. COPD - mild exacerbation - most of her respiratory symptoms are likely a result of her malignancy and recent RT - cont corticosteroids, inhaled therapy and antitussives 3. NSCLC, metastatic - chemorefractory on 4th line therapy with recent palliative RT to obstructing R hilar mass - midway through C1 gemcitabine with progression of disease on imaging at admission - discussed with patient that this imaging is too soon to consider progression, but the likelihood that she responds to this therapy is low - as mentioned above, if there is an esophageal mass identified that looks like malignancy she will need to decide between a Gtube and continuing a therapy that she has a low likelihood of responding to vs transitioning to Hospice - she recently met with [facility] regarding clinical trials, unfortunately due to her h/o severe colitis on durvalumab she is not eligible for any active trials at this time Dispo: pending EGD ]
[2018-02-08] MEDS: HYDROmorphone TAB* 4 MG PO PRN ×2 (12:41→18:31)
[2018-02-08] MEDS ORDERED: Midazolam* 1 MG/ML 10 ML VIAL (10 MG) ONE (14:43)
[2018-02-08] MEDS ORDERED: fentaNYL* 50 MCG/ML 2 ML VIAL (100 MCG VIAL) ONE (14:43)
[2018-02-08] MEDS ORDERED: Ondansetron INJ* 2 MG/ML VIAL ONE (15:17)
--- NOTE | 2018-02-08 16:05 | PN ---
Progress Note - Progress Note Date of Service: 02/08/18 Note: GI Brief EGD Note Exam limited by patient intolerance to moderate sedation Mild narrowing distal esophagus without mucosal change. No lesion or mass. Adult scope passed with ease. 2cm Hiatal Hernia Old blood in stomach, unable to completely clear stomach especially cardia and body 2/2 intolerance to mod sed. Antrum without gross ulcer Duodenum: duodenitis with erosions Recommendation PPI BID given old blood in stomach of unclear etiology as exam limited. No mass in esophagus. unable to clear cardia and body. If repeat egd desired notify our service: would plan with anesthesia and holding anticoagulation if feasible. Dieudonne Alejo DO 02/08/18 1600
[2018-02-08] MEDS: Fluconazole 100 MG IVPREMIX(*) 100 MG/50 ML BAG IVPB SCH (16:43)
--- NOTE | 2018-02-08 21:38 | CONS ---
CC: Dr. Russo; KWESI Rosa * CONSULTATION REPORT: DATE OF CONSULT: 02/08/18 PRIMARY ONCOLOGIST: Dr. Russo. PHYSICIAN CUTTER AND PASTER PRESS CLIPPINGS FOR THE HOSPITALIZATION: KWESI Rosa REASON FOR CONSULT: Dysphagia. HISTORY OF PRESENT ILLNESS: This is a very pleasant 52-year-old female, who unfortunately has metastatic squamous cell carcinoma of the lung with multiple complications including colitis from prior chemotherapy, postobstructive pneumonia and pulmonary embolism, who presents with dysphagia. She was seen on 02/03/18 and started on oral fluconazole for possible Nguyen. There was no evidence of pneumonia on the x-ray. She states it has been more solids like liquids, points to the midsternal area where things get stuck. She says that at this point sometimes water is even difficult. She has intense back pain that accompanies this. She denies any black or blood in the stool. No diarrhea , constipation. She admits to weight loss. The remainder of the 14-point review of systems is grossly negative. PAST MEDICAL HISTORY: Squamous cell carcinoma of the lung with metastases, pulmonary embolism, hypertension. PAST SURGICAL HISTORY: Cholecystectomy, hysterectomy, teeth removal. MEDICATIONS: Prior to admission include: 1. Albuterol. 2. Dilaudid. 3. Duloxetine. 4. Eliquis. 5. Fentanyl. 6. Guaifenesin. 7. Hydromorphone. 8. Metoprolol. 9. Multivitamin. 10. Oxygen. 11. Prednisone. 12. Ventolin. FAMILY HISTORY: No history of GI cancers or inflammatory bowel disease. SOCIAL HISTORY: Daily smoker in the past. No alcohol use. REVIEW OF SYSTEMS: The remainder of the 14-point review of systems is grossly negative with the exception of dyspnea. PHYSICAL EXAM: Vital Signs: Blood pressure is 137/76, pulse is 74, respiratory rate is 18, she is 94% on 2 L. In general, she is chronically ill appearing, in no acute distress. HEENT: Atraumatic, normocephalic. Pupils are equal, round, reactive to light. Conjunctivae are pink. Sclerae anicteric. Cardiovascular: Has regular rate and rhythm. S1, S2. Respiratory: Bilateral extensive rhonchi, better with clearing. Diminished sounds in the right upper lung field. Abdomen: Soft, nontender, nondistended. Bowel sounds positive. Extremities: No edema. Psych: Mildly anxious, but appropriate mood and affect. Neurological: Appears nonfocal. DIAGNOSTIC STUDIES/LAB DATA: She had a CT scan done that showed a confluent tumor in the right hilum, right pleural effusion, mediastinal adenopathy, interval enlargement of the left adrenal mass, [id number] middle column compression fracture of T7. Hemoglobin on admission was 9.4 on 02/07/18, today it is 8.1. INR is 1.26. Albumin is 3.3. ASSESSMENT AND PLAN: This is a 52-year-old with metastatic squamous cell carcinoma, now presenting with dysphagia. We will plan on endoscopy to rule out implant or metastatic lesion, potentially sample; however, the patient is on anticoagulation, we will be cautious. If there is consideration if this is an implant or metastatic obstructing disease, may need PEG tube depending on the patient's wishes and further goals of care. [id number]/[facility] #: [id number] MTDD
[2018-02-08] MEDS: Pantoprazole IV* 40 MG IV SCH (22:57)
[2018-02-09] MEDS: Albuterol/Ipratropium NEB.SOL* Albuterol 2.5 MG/Ipratropium 0.5 MG 3 ML INH SCH ×4 (01:33→19:55)
[2018-02-09] MEDS: HYDROmorphone TAB* 4 MG PO PRN (04:21)
[2018-02-09] MEDS: Morphine INJ* 4 MG/ML 1 ML SYRINGE (NEW SYRINGE VERSION) IV PRN (04:21)
[2018-02-09] MEDS: ZOSYN 3.375 GM Q8H per EXTENDED INFUSION IVPB SCH ×6 (05:53→22:25)
[2018-02-09 06:47] LABS: ABS Basophils 0 10^3/ul (0-0.2); ABS Eosinophils 0 10^3/ul (0-0.6); ABS Lymphocytes 0.3 10^3/ul (1.0-4.8); ABS Monocytes 0.1 10^3/ul (0-0.8); ABS Nucleated RBC 0 10^3/ul; Eosinophil % 0 % (0-6); Hematocrit 24 % (35-47); Hemoglobin 7.7 g/dl (12.0-16.0); Mean Corpuscular HGB Conc 32 g/dl (31-36); Mean Corpuscular Hemoglobin 28 pg (27-31); Mean Corpuscular Volume 87 fL (80-97); Mean Platelet Volume 6.5 um3 (7.4-10.4); Nucleated Red Blood Cells % 0.5; Platelet Count 79 10^3/ul (150-450); Red Blood Count 2.78 10^6/ul (4.00-5.40); Red Cell Distribution Width 19 % (10.5-15); White Blood Count 4.4 10^3/ul (3.5-10.8)
[2018-02-09 06:58] LABS: EGFR Non-African American 66.9 (>60)
[2018-02-09] MEDS: fentaNYL Patch Check Q Shift 1 NOTE SCH ×2 (07:18→19:44)
[2018-02-09] MEDS: GuaiFENesin DM* 5 ML UDC PO PRN ×2 (07:46→19:44)
[2018-02-09] MEDS: DULoxetine DR CAP* 60 MG CAP.DR PO SCH (07:46)
[2018-02-09] MEDS: methylPREDNISolone 125 MG* 2 ML VIAL IV SCH ×2 (07:46→21:31)
[2018-02-09] MEDS: Pantoprazole IV* 40 MG IV SCH ×2 (07:46→21:31)
[2018-02-09] MEDS: Apixaban* 5 MG TAB PO SCH (07:46)
[2018-02-09] MEDS: Benzonatate CAP* 100 MG PO PRN ×2 (07:46→19:44)
[2018-02-09] MEDS: Metoprolol Tartrate TAB* 25 MG PO SCH ×2 (07:46→21:31)
--- NOTE | 2018-02-09 08:26 | PRO ---
CC: Dr. Anton Russo PROCEDURE REPORT: DATE OF PROCEDURE: 02/08/18 PRIMARY ONCOLOGIST: Dr. Anton Russo. INDICATION FOR PROCEDURE: Dysphagia. PROCEDURE PERFORMED: Esophagogastroduodenoscopy. MEDICATIONS GIVEN: Include: 1. 10 mg IV midazolam. 2. 100 mcg IV fentanyl. DESCRIPTION OF PROCEDURE: After the EGD procedure including the risks, benefits, and alternatives wi th the risks not limited to perforation, surgery, missed lesions, and/or were explained to the patient, written consent was then obtained, IV medication was given and a bite-block was placed betwe en the teeth. The Olympus gastroscope was passed through the patient's mouth, into the upper esophage al sphincter, into the esophagus. The tubular esophagus was without any lesions in the distal portio n around 36 cm to 32 cm. There was a little bit of narrowing, not a definite with the possibility of a stricture, but the adult scope was able to pass through this area with very gentle pressure. Ther e was no mass lesions, no erosion of the mucosa. The mucosa was normal in appearance. She did have a 2-cm hiatal hernia at the GE junction of 40 cm. The exam was limited secondary to her intolerance to moderate sedation likely secondary to her narcotic use for her metastatic bone pain. In the stoma ch, there was some old blood that was dark that was visualized. I was able to briefly wash this area , but was not able to completely clear the cardia and the body of the stomach in entirety. The antru m had a pale appearance, but otherwise was without focal ulceration. A brief look into the duodenum, into the bulb, into the C-loop, and the distal duodenum albeit brief in nature showed some duodeniti s with erosions, but no focal ulceration. The scope was then withdrawn from the patient. She tolera vale the procedure well, returned to the recovery room in stable condition. IMPRESSION: 1. Complete esophagogastroduodenoscopy. 2. Narrowing to the distal esophagus, roughly 6 cm, possible mild stricture, but the adult scope was able to pass this area without difficulty. There were no mucosal changes or lesions or masses in th e tubular esophagus. 3. Small hiatal hernia. 4. Old blood in the stomach, unable to clear appropriately secondary to intolerance to moderate josé luis tion, cannot exclude lesion in cardia or body of the stomach. 5. Duodenitis with erosions, no clear ulceration. RECOMMENDATIONS: At this time, I placed her on a b.i.d. proton pump inhibitor given the old blood in her stomach. Her dysphagia may be related to this narrowing of her distal esophagus. There is no m ass there. I am not sure how amenable this will be to dilation given the length and if there is any external compression affecting this, but if her clinical condition warrants, could consider repeat en doscopy with anesthesia assistance in the OR, and again to further clear the cardia and the body off any lesions and the source of her blood. We will be on standby if this is desired. Please let our s ervice know and we will need to hold anticoagulation if there is a thought of dilating this area. [id number]/[facility] #: [id number]
--- NOTE | 2018-02-09 10:31 | PN ---
Progress Note - Progress Note Date of Service: 02/09/18 SOAP: Subjective: [Reports that she did well over night. Coughing freq, no worsening dyspnea. No abdominal pain. She vomited once shortly after the endoscopy, but has otherwise had no dysphagia and able to tolerate a regular diet well.] Objective: [ Laboratory Results - last 24 hr 02/09/18 02/09/18 06:25 06:26 WBC 4.4 RBC 2.78 L Hgb 7.7 L Hct 24 L MCV 87 MCH 28 MCHC 32 RDW 19 H Plt Count 79 L MPV 6.5 L Neut % (Auto) 90.8 H Lymph % (Auto) 7.0 L [place] % (Auto) 2.2 Eos % (Auto) 0 Baso % (Auto) 0 Absolute Neuts (auto) 4.0 Absolute Lymphs (auto) 0.3 L Absolute Monos (auto) 0.1 Absolute Eos (auto) 0 Absolute Basos (auto) 0 Absolute Nucleated RBC 0 Nucleated RBC % 0.5 Sodium 143 Potassium 5.3 H Chloride 107 Carbon Dioxide 32 Anion Gap 4 BUN 16 Creatinine 0.89 Est GFR ( Amer) 80.9 Est GFR (Non-Af Amer) 66.9 BUN/Creatinine Ratio 18.0 Glucose 140 H Calcium 9.3 Total Bilirubin 0.20 AST 58 H ALT 53 H Alkaline Phosphatase 52 Total Protein 5.8 L Albumin 3.3 Globulin 2.5 Albumin/Globulin Ratio 1.3 Albuterol/Ipratropium (Duoneb (Albuterol 2.5 Mg/Ipratropium 0.5 Mg)) 1 neb INH [id number] [facility] Last Admin: 02/09/18 07:34 Dose: 1 neb Benzonatate (Tessalon Cap*) 200 mg PO Q8H PRN PRN Reason: COUGH Last Admin: 02/09/18 07:46 Dose: 200 mg Duloxetine HCl (Cymbalta Cap*) 60 mg PO DAILY [facility] Last Admin: 02/09/18 07:46 Dose: 60 mg Fentanyl (Duragesic Patch 100 Mcg/Hr *) 100 mcg TRANSDERM Q72H ALLYSSA Last Admin: 02/07/18 18:24 Dose: 100 mcg Guaifenesin/Dextromethorphan (Robitussin Dm*) 10 ml PO Q4H PRN PRN Reason: COUGH Last Admin: 02/09/18 07:46 Dose: 10 ml Heparin Sodium (Porcine) (Heparin Flush Port (Ivad)) 5 ml FLUSH DAILY [facility]; Protocol Last Admin: 02/09/18 07:32 Dose: Not Given Hydromorphone HCl (Dilaudid Tab*) 4 mg PO Q4H PRN PRN Reason: PAIN Last Admin: 02/09/18 04:21 Dose: 4 mg Piperacillin Sod/Tazobactam (Sod 3.375 gm/ Sodium Chloride) 100 mls @ 25 mls/ hr IVPB Q8H [facility] Last Admin: 02/09/18 05:53 Dose: 25 mls/hr Methylprednisolone Sodium Succinate (Solu-Medrol 125mg *) 60 mg IV Q12H [facility] Last Admin: 02/09/18 07:46 Dose: 60 mg Metoprolol Tartrate (Lopressor Tab*) 25 mg PO BID [facility] Last Admin: 02/09/18 07:46 Dose: 25 mg Ondansetron HCl (Zofran Inj*) 4 mg IV Q4H PRN PRN Reason: NAUSEA Last Admin: 02/08/18 18:18 Dose: 4 mg Pantoprazole Sodium (Protonix Iv*) 40 mg IV Q12HR [facility] Last Admin: 02/09/18 07:46 Dose: 40 mg Pharmacy Consult (Zosyn Per Pharmacy*) 1 note FOLLOW UP .ZOSYN PER PHARMACY [facility] Pharmacy Profile Note (Fentanyl Patch Check Q Shift) 1 note N/A 0700,1900 [facility] Last Admin: 02/09/18 07:18 Dose: 1 note Vital Signs: Temp Pulse Resp BP Pulse Ox 98.1 F 70 16 140/74 99 02/09/18 07:25 02/09/18 07:32 02/09/18 08:00 02/09/18 07:25 02/09/18 07:32 Exam: Gen: Chronically ill and cushingoid appearance in NAD, accompanied by her today HEENT: No thrush, MMM CV: RRR, no m/r/g Resp: diffuse wheezing and occasional rhonchi Abd: soft, nonTTP Ext: No edema] Assessment: [52 yo female with metastatic NSCLC, recently started on 4th line therapy who presented with c/o increasing dyspnea and severe dysphagia, unable to swallow even water. Initial CT imaging demonstrated distal esophageal mucosal thickening, in addition to what appeared to be mid esophageal mass. Additionally, there appeared to be progression in her tumor size, lymphadenopathy and adrenal mass. Endoscopy performed yesterday demonstrated no mass, some stenosis distally. No thrush. Some old blood seen within the stomach with duodenitis and few erosions but no active bleeding. The entire stomach could not be fully evaluated as the patient was not tolerating sedation. ] Plan: [1. Dysphagia - spontaneously resolved - some distal stenosis noted, but adult scope was passed with ease - suspect her acute symptoms were due to FB obstruction, likely food that became stuck and then spontaneously passed 2. GI bleed - old blood seen in the stomach, but no clear source of bleeding - Drop in Hgb noted - Eliquis held - bid IV PPI - if Hgb doesn't stabilize/improve - GI will repeat upper endoscopy under general anesthesia 2. COPD - mild exacerbation - most of her respiratory symptoms are likely a result of her malignancy and recent RT - cont corticosteroids, inhaled therapy and antitussives 3. NSCLC, metastatic - chemorefractory on 4th line therapy with recent palliative RT to obstructing R hilar mass - midway through C1 gemcitabine with progression of disease on imaging at admission - discussed with patient that this imaging is too soon to consider progression, but the likelihood that she responds to this therapy is low - she recently met with [facility] regarding clinical trials, unfortunately due to her h/o severe colitis on durvalumab she is not eligible for any active trials at this time Dispo: cont inpatient care. If Hgb stable, dc home tomorrow, if further drop will need repeat endoscopy
[2018-02-09] MEDS: HYDROmorphone INJ1* 1 MG/ML SYRINGE IV SLOW PU PRN ×3 (11:20→19:44)
[2018-02-09 15:04] LABS: Hematocrit 29 % (35-47); Hemoglobin 8.6 g/dl (12.0-16.0)
[2018-02-09] MEDS: Ondansetron INJ* 2 MG/ML VIAL IV PRN (15:05)
[2018-02-09] MEDS ORDERED: Senna TAB PO SCH (21:00)
[2018-02-10] MEDS: Albuterol/Ipratropium NEB.SOL* Albuterol 2.5 MG/Ipratropium 0.5 MG 3 ML INH SCH ×3 (00:48→14:55)
[2018-02-10] MEDS: GuaiFENesin DM* 5 ML UDC PO PRN ×3 (03:05→13:49)
[2018-02-10] MEDS: HYDROmorphone INJ1* 1 MG/ML SYRINGE IV SLOW PU PRN ×3 (03:05→13:59)
[2018-02-10] MEDS: ZOSYN 3.375 GM Q8H per EXTENDED INFUSION IVPB SCH ×4 (06:12→16:15)
[2018-02-10 07:29] LABS: EGFR Non-African American 67.7 (>60)
[2018-02-10 07:51] LABS: ABS Basophils 0 10^3/ul (0-0.2); ABS Eosinophils 0 10^3/ul (0-0.6); ABS Lymphocytes 0.3 10^3/ul (1.0-4.8); ABS Monocytes 0.2 10^3/ul (0-0.8); ABS Neutrophils 5.6 10^3/ul (1.5-7.7); ABS Nucleated RBC 0.1 10^3/ul; Eosinophil % 0.6 % (0-6); Hematocrit 25 % (35-47); Lymphocyte % 4.6 % (25-47); Mean Corpuscular HGB Conc 33 g/dl (31-36); Mean Corpuscular Hemoglobin 28 pg (27-31); Mean Corpuscular Volume 86 fL (80-97); Mean Platelet Volume 7.6 um3 (7.4-10.4); Nucleated Red Blood Cells % 1.4; Platelet Count 74 10^3/ul (150-450); Red Blood Count 2.85 10^6/ul (4.00-5.40); Red Cell Distribution Width 19 % (10.5-15); White Blood Count 6.1 10^3/ul (3.5-10.8)
[2018-02-10] MEDS: fentaNYL Patch Check Q Shift 1 NOTE SCH (08:16)
[2018-02-10] MEDS: Metoprolol Tartrate TAB* 25 MG PO SCH (08:18)
[2018-02-10] MEDS: DULoxetine DR CAP* 60 MG CAP.DR PO SCH (08:18)
[2018-02-10] MEDS: Pantoprazole IV* 40 MG IV SCH (08:20)
[2018-02-10] MEDS: methylPREDNISolone 125 MG* 2 ML VIAL IV SCH (08:20)
--- NOTE | 2018-02-10 08:56 | DS ---
- Discharge Summary ADMIT DATE:02/07/2018 DISCHARGE DATE: 02/10/2018 DISCHARGE DIAGNOSIS: 1. acute respiratory distress 2/2 mechanical obstruction of the esophagus 2. mild COPD exacerbation 3. upper GI bleed 4. metastatic lung cancer DISCHARGE MEDICATIONS: Home Medications Medication Instructions Recorded Confirmed Type Albuterol HFA INHALER* [Ventolin 2 puff INH Q4H PRN 10/06/17 02/07/18 History HFA Inhaler*] Multivitamin [One Daily] 1 each PO QAM 10/06/17 02/07/18 History Duloxetine HCl [Cymbalta] 60 mg PO DAILY 11/17/17 02/07/18 History predniSONE TAB* [Deltasone 10 MG 20 mg PO DAILY 01/06/18 02/07/18 History TAB*] HYDROmorphone TAB* [Dilaudid TAB*] 2 - 4 mg PO Q4H PRN #180 tab MDD 01/07/1812/18 Rx 24 mg Metoprolol Tartrate TAB* 25 mg PO BID #60 tab 01/07/18 02/07/18 Rx [Lopressor TAB*] Benzonatate CAP* [Tessalon 100 MG 100 mg PO TID 02/07/18 02/07/18 History CAP*] Ondansetron HCl [Zofran 4 MG TAB] 4 mg PO Q4H 02/07/18 02/07/18 History Benzonatate CAP* [Tessalon 100 MG 200 mg PO Q8H PRN #90 cap 02/10/18 Rx CAP*] GuaiFENesin DM* [Robitussin DM*] 10 ml PO Q4H PRN udc 02/10/18 Rx Omeprazole CAP* [Prilosec CAP* 20 20 mg PO BID #60 cap. 02/10/18 Rx MG] Senna TAB* [Senokot TAB*] 1 tab PO BEDTIME tab 02/10/18 Rx fentaNYL PATCHs 100 MCG/HR* 100 mcg TRANSDERM Q72H #10 patch 02/10/18 Rx [Duragesic Patch 100 Mcg/Hr *] MDD 100 HOLD ELIQUIS INDEFINITELY DISCHARGE FOLLOW UP: Dr. Mcneill 02/17/2018 at 1 pm with chemo to follow HOSPITAL COURSE: Wanda was admitted on 10/8 after presenting with acute respiratory distress, choking and vomiting. CT chest revealed what appeared to be a mass in her esophagus. she underwent endoscopy the next day, at which point she was feeling much better in terms of swallowing. it was a limited study due to insufficient sedation, but did not show any masses in the esophagus or thrush. The was mild stenosis. There was evidence of old blood in the stomach and duodenitis with erosions. Her Hb dropped 2.5 pts from baseline and so eliquis is being held. She does report now that her has had to give her the himlech maneuver 3 times in the past month at home because of choking on foods. Her hb was stable and she was discharged home. We did discuss that treatment options are very limited, and if she does not respond to gemcitabine, I am concerned that she will have no other options. She is hopeful that they will have some type of treatment available at [facility] in the future, and was unwilling to discuss cessation of therapy. she was instructed to follow a mechanical soft diet with plenty of liquids. >30 mins spent, >50% in face to face counseling
[2018-02-10] MEDS: Benzonatate CAP* 100 MG PO PRN (10:47)
[2018-02-10 12:55] LABS: Hematocrit 25 % (35-47); Hemoglobin 8.2 g/dl (12.0-16.0)
[2018-02-10 16:49] VITALS: BP 151/79
== END 2018-02-10 16:45 | disposition home or self-care (01) | DRG 243 ==
LOC: ED 11:45 → MEDTELE 15:50 → MED 02-09 18:20
PROVIDERS: ADMIT Internal Medicine Hematology & Oncology; ATTEND Internal Medicine Hematology & Oncology
PROC: 0DJ08ZZ Inspection of Upper Intestinal Tract, Via Natural or Artificial Opening Endoscopic (ICD-10-PCS; principal; 2018-02-08)
DX: K22.2 Esophageal obstruction (principal); J44.1 Chronic obstructive pulmonary disease with (acute) exacerbation; J90 Pleural effusion, not elsewhere classified; C34.90 Malignant neoplasm of unspecified part of unspecified bronchus or lung; I10 Essential (primary) hypertension; I48.91 Unspecified atrial fibrillation; K44.9 Diaphragmatic hernia without obstruction or gangrene; K26.9 Duodenal ulcer, unspecified as acute or chronic, without hemorrhage or perforation; K29.80 Duodenitis without bleeding; Z88.8 Allergy status to other drugs, medicaments and biological substances; Z87.01 Personal history of pneumonia (recurrent); Z90.710 Acquired absence of both cervix and uterus; Z90.49 Acquired absence of other specified parts of digestive tract; Z90.722 Acquired absence of ovaries, bilateral; Z86.718 Personal history of other venous thrombosis and embolism; Z86.711 Personal history of pulmonary embolism; Z87.891 Personal history of nicotine dependence
CPT/HCPCS: 36415; 71046; 71275; 80053; 82550; 83605; 83880; 84484; 85014; 85018; 85025; 85610; 86140; 87040; 93005; 94640; 99156; 99157; 99223; 99232; 99284; A9270-GY; J0692; J1170; J1450; J1642; J2250; J2270; J2405; J2543; J2930; J3010; Q9967

== ENCOUNTER 2018-02-25 11:33 | Inpatient (IN) | payer BC ==
[2018-02-25] MEDS ORDERED: Adenosine* 3 MG/ML VIAL ONE (11:37)
[2018-02-25] MEDS ORDERED: Diltiazem IV* 5 MG/ML 5 ML VIAL (for loading dose/IV Push) (25 MG) ONE (11:40)
[2018-02-25] MEDS ORDERED: Levalbuterol 1.25MG/0.5ML NEB INH ONE (11:44)
[2018-02-25] MEDS ORDERED: Diltiazem IV* 5 MG/ML 5 ML VIAL (for loading dose/IV Push) (25 MG) IV PUSH ONE (11:44)
[2018-02-25] MEDS ORDERED: Diltiazem DRIP* 100 MG/100 ML ADDV.BAG IVPB ONE ×2 (11:44→11:51)
[2018-02-25] MEDS ORDERED: methylPREDNISolone 125 MG* 2 ML VIAL IV ONE (11:44)
[2018-02-25] MEDS ORDERED: Piperacillin/Tazobac ADVAN(*) 3.375 GM in NS 0.9% 100 ML* 100 ML IVPB ONE (11:49)
[2018-02-25] MEDS ORDERED: Lactated Ringers 1000 ml Bag*IV.FLUID IV ONE (11:49)
[2018-02-25] MEDS ORDERED: Levalbuterol 1.25MG/0.5ML NEB ONE (11:50)
--- NOTE | 2018-02-25 11:55 | ED ---
Shortness of Breath - HPI Summary HPI Summary: Patient is a 52 y/o F w/ c/o SOB, nausea, vomiting, back pain onsetting last night. On triage, patient is noted to have had difficulty breathing, been tripoding, and to have coarse breath sounds. Patient was placed on 10 L o2. In room, patient is in SVT, pulse of 175, BP 90/63. Hx of afib and triple ablation. Patient is not on blood thinners currently. 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 Last chemotherapy was reported to have been two weeks ago. She notes that she was discharged from [facility] 1.5 days ago after a six day stay here. On triage, pain is rated 10/10, lying flat is noted to aggravate Sx, nothing is reported to alleviate. Home medications and allergies are reviewed. - History of Current Complaint Chief Complaint: EDShortnessOfBreath Time Seen by Provider: 02/25/18 11:36 Hx Obtained From: Patient Onset/Duration: Lasting Days - reportedly last night, Still Present Timing: Constant Current Severity: Severe - 10/10 Aggrevating Factors: Other - lying flat Alleviating Factors: Nothing Associated Signs & Symptoms: Wheezing - Allergy/Home Medications Allergies/Adverse Reactions: Allergies Allergy/AdvReac Type Severity Reaction Status Date / Time paclitaxel Allergy Severe Anaphylatic Verified 02/25/18 12:52 Shock Home Medications: Home Medications DULoxetine CAP* [Cymbalta CAP*] 60 mg PO DAILY 02/25/18 [History Confirmed ] PMH/Surg Hx/FS Hx/Imm Hx Endocrine/Hematology History: Denies: Hx Diabetes Cardiovascular History: Reports: Hx Hypertension Denies: Hx Pacemaker/ICD Respiratory History: Reports: Hx Chronic Obstructive Pulmonary Disease (COPD), Other Respiratory Problems/Disorders - lung cancer, recent pneumonia History: Denies: Hx Renal Disease Musculoskeletal History: Reports: Hx Back Problems Sensory History: Denies: Hx Contacts or Glasses, Hx Hearing Aid Opthamlomology History: Denies: Hx Contacts or Glasses Psychiatric History: Denies: Hx Panic Disorder - Cancer History Cancer Type, Location and Year: LUNG CA Hx Chemotherapy: Yes Hx Radiation Therapy: Yes - Surgical History Surgery Procedure, Year, and Place: CHOLE[place]STECTOMY 2014 - [place]. [place]CTOMY 2010 [place] Hx Anesthesia Reactions: Yes - PONV - Immunization History Date of Influenza Vaccine: 01/2018 Infectious Disease History: No Infectious Disease History: Denies: Traveled Outside the [place] in Last 30 Days - Family History Known Family History: Negative: Cardiac Disease, Hypertension, Diabetes - Social History Alcohol Use: None Substance Use Type: Reports: Prescribed Substance Use Comment - Amount & Last Used: oxycodone Smoking Status (MU): Former Smoker Type: Cigarettes Amount Used/How Often: 1 ppd for 40 years Review of Systems Positive: Other - SVT Positive: Shortness Of Breath Positive: Vomiting, Nausea Positive: Other - back pain All Other Systems Reviewed And Are Negative: Yes Physical Exam - Summary Physical Exam Summary: Appearance: Mild distress Skin: warm, dry, reflects adequate perfusion Head/face: normal Eyes: EOMI, KENYA ENT: normal Neck: supple, non-tender Respiratory: Bilateral wheezing Cardiovascular: Tachycardia, pulses symmetrical Abdomen: non-tender, soft Bowel: present Musculoskeletal: normal, strength/ROM intact Neuro: normal, sensory motor intact, A&Ox3 Triage Information Reviewed: Yes Vital Signs On Initial Exam: Initial Vitals Temp Pulse Resp Pulse Ox 95.1 F 195 29 97 02/25/18 11:34 02/25/18 11:34 02/25/18 11:34 02/25/18 11:34 Vital Signs Reviewed: Yes Diagnostics - Vital Signs Vital Signs Temp Pulse Resp Pulse Ox 02/25/18 11:34 95.1 F 195 29 97 - Laboratory Result Diagrams: 02/25/18 15:09 02/25/18 12:37 Lab Statement: Any lab studies that have been ordered have been reviewed, and results considered in the medical decision making process. - Radiology CXR Radiology Interpretation Completed By: Radiologist Summary of Radiographic Findings: CXR showed stable right perihilar mass. This report was reviewed by ED physician. - CT CTA chest/thorax CT Interpretation Completed By: Radiologist Summary of CT Findings: IMPRESSION: #. Negative for pulmonary embolism. #. Large RIGHT lung mass encasing the hilum and associated with probable postobstructive. pneumonitis similar to the prior exam. Gross near complete atelectasis of the RIGHT middle. lobe. #. Small dependent RIGHT pleural effusion with interval increase. #. No significant change in mediastinal lymphadenopathy. #. Unchanged probable pathologic fracture at the T7 vertebral body. This report was reviewed by ed physician. - EKG 1150 Cardiac Rate: Other Rate - RVR, rate of 180 BPM EKG Rhythm: Atrial Fibrillation Summary of EKG Findings: afib with RVR Re-Evaluation - Re-Evaluation First Eval Re-Evaluation Time: 13:40 Comment: Discussed results of labs and tests as well as consulted. Patient is agreeable with going to ICU. Course/Dx - Course Course Of Treatment: Patient is a 52 y/o F w/ c/o SOB, nausea, vomiting, back pain onsetting last night. On triage, patient is noted to have had difficulty breathing, been tripoding, and to have coarse breath sounds. Patient was placed on 10 L o2. In room, patient is in SVT, pulse of 175, BP 90/63. Hx of afib and triple ablation. Patient is not on blood thinners currently. 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 Last chemotherapy was reported to have been two weeks ago. On physical exam, patient has bilateral wheezes, tachycardia, mild distress. During ED course, patient received IV antibiotics, Zofran, solu- medrol, Xopenex, lactated Ringers, diltiazem. CXR showed stable right perihilar mass. EKG showed afib w/ RVR. CTA CHEST/THORAX IMPRESSION: #. Negative for pulmonary embolism. #. Large RIGHT lung mass encasing the hilum and associated with probable postobstructive. pneumonitis similar to the prior exam. Gross near complete atelectasis of the RIGHT middle. lobe. #. Small dependent RIGHT pleural effusion with interval increase. #. No significant change in mediastinal lymphadenopathy. #. Unchanged probable pathologic fracture at the T7 vertebral body. Bloodwork and blood gas were obtained. 1323 - Dr. Elaine was consulted on patient's case, Dr. Elaine recommends discussion of case with hedis nurse. 1336 - Dr. Mckay was consulted on patient's case, Dr. Mckay accepts patient to ICU. Patient is agreeable with going to ICU. Discussed results of labs and tests as well as consulted. Patient is agreeable with going to ICU. Dx of sepsis, PNA, afib w/ RVR, COPD exacerbation, lung CA, and respiratory failure. - Diagnoses Differential Diagnosis/HQI/PQRI: Positive: Bronchitis, CHF, COPD Exacerbation, Pneumonia, Pulmonary Edema Provider Diagnoses: Atrial fibrillation with RVR, Lung cancer, Sepsis, Respiratory failure, COPD exacerbation, PNA (pneumonia) - Physician Notifications Discussed Care of Patient With: Moriah Elaine Time Discussed With Above Provider: 13:23 Instructed by Provider To: Other - 1323 - Dr. Elaine was consulted on patient's case, Dr. Elaine recommends discussion of case with hedis nurse. 1336 - Dr. Mckay was consulted on patient's case, Dr. Mckay accepts patient to ICU. Patient is agreeable with going to ICU. - Critical Care Time Critical Care Time: 30-74 min - 60 minutes Discharge - Sign-Out/Discharge Documenting (check all that apply): Patient Departure - admit - Discharge Plan Condition: Good Disposition: ADMITTED TO [facility] - Billing Disposition and Condition Condition: GOOD Disposition: Admitted to [facility] - Attestation Statements Document Initiated by Matthew: Yes Documenting Scribe: Angel Flores Provider For Whom Antonioe is Documenting (Include Credential): Valente Dinh MD Scribe Attestation: IAngel , scribed for Valente Dinh MD on 02/25/18 at 1546. Scribe Documentation Reviewed: Yes Provider Attestation: The documentation as recorded by the Angel mota accurately reflects the service I personally performed and the decisions made by me, Valente Dinh MD
[2018-02-25] MEDS ORDERED: Vancomycin(*) 1,000 MG VIAL IVPB SCH (12:00)
--- NOTE | 2018-02-25 12:24 | RAD ---
HISTORY: sob COMPARISONS: February 07, 2018 VIEWS: 1: frontal AP view of the chest at 12:04 PM FINDINGS: LINES AND TUBES: None. CARDIOMEDIASTINAL SILHOUETTE: The cardiomediastinal silhouette is normal for portable technique. PLEURA: The costophrenic angles are sharp. No pleural abnormalities are noted. LUNG PARENCHYMA: There is right-sided perihilar Mass. Stable from the previous examination. ABDOMEN: The upper abdomen is clear. There is no subphrenic gas. BONES AND SOFT TISSUES: No bone or soft tissue abnormalities are noted. IMPRESSION: STABLE RIGHT PERIHILAR MASS
[2018-02-25] MEDS ORDERED: Ondansetron INJ* 2 MG/ML VIAL IV ONE (12:26)
[2018-02-25 12:59] LABS: INR 1.14 (0.77-1.02)
[2018-02-25] MEDS ORDERED: Vancomycin(*) 1,000 MG - ED ONCE IVPB ONE ×2 (13:00)
[2018-02-25 13:01] LABS: Hematocrit 41 % (35-47); Hemoglobin 13.2 g/dl (12.0-16.0); Mean Corpuscular HGB Conc 32 g/dl (31-36); Mean Corpuscular Hemoglobin 29 pg (27-31); Mean Corpuscular Volume 89 fL (80-97); Mean Platelet Volume 6.7 um3 (7.4-10.4); Platelet Count 527 10^3/ul (150-450); Red Blood Count 4.61 10^6/ul (4.00-5.40); Red Cell Distribution Width 24 % (10.5-15); White Blood Count 22.9 10^3/ul (3.5-10.8)
[2018-02-25 13:07] LABS: EGFR Non-African American 50.3 (>60)
[2018-02-25] MEDS ORDERED: Iodixanol* (CONTRAST) 320 MG/ML 100 ML SDV IV ONE (13:46)
[2018-02-25 13:57] LABS: ABS Basophils 0 10^3/ul (0-0.2); ABS Eosinophils 0 10^3/ul (0-0.6); ABS Lymphocytes 0.9 10^3/ul (1.0-4.8); ABS Monocytes 1.4 10^3/ul (0-0.8); ABS Neutrophils 20.5 10^3/ul (1.5-7.7); ABS Nucleated RBC 0 10^3/ul; Eosinophil % 0.1 % (0-6); Lymphocyte % 4.1 % (25-47); Nucleated Red Blood Cells % 0.1
[2018-02-25] MEDS ORDERED: Digoxin IV* 0.5 MG/2 ML AMP (0.25 MG/ML) IV SLOW PU ONE (14:07)
[2018-02-25] MEDS ORDERED: HYDROmorphone TAB* 2 MG PO PRN (14:17)
[2018-02-25] MEDS ORDERED: NS 0.9% 1000 ML*IV.FLUID IV ONE (14:23)
[2018-02-25] MEDS ORDERED: Zosyn per Pharmacy* NOTE FOLLOW UP SCH (15:00)
[2018-02-25] MEDS ORDERED: Enoxaparin(*) 60 MG/0.6 ML SYR SUBCUT SCH (15:00)
--- NOTE | 2018-02-25 15:05 | RAD ---
INDICATION: Difficulty breathing. Tachypnea. History of lung cancer with spine metastasis. COMPARISON: Chest radiograph of the same date and February 17, 2018 CT. TECHNIQUE: Multidetector CT images were obtained from the lung apices to the upper abdomen with 74 mL Visipaque 320 IV contrast. Pulmonary angiogram protocol. Multiplanar reformation including with maximum intensity projection. REPORT: Emphysema. Mass encasing the RIGHT hilar structures measures up to 9.1 cm AP by 5.3 cm transverse. Associated rind of postobstructive pneumonitis at all 3 lobes of the RIGHT lung. Near complete atelectasis of the RIGHT middle lobe without significant change. Small dependent RIGHT pleural effusion is increased. No suspicious LEFT lung lesions or consolidation. Negative for LEFT pleural effusion. Negative for pneumothorax. 1.7 cm short axis precarinal lymph node without gross change. 1.4 cm short axis subcarinal lymph node without significant change. Smaller prevascular mediastinal lymph nodes without significant change. Negative for cardiomegaly. Small pericardial effusion without significant change. Technically adequate CT pulmonary angiogram. No filling defects are identified from the main to the subsegmental pulmonary arteries to indicate presence of a pulmonary embolism. Images through the upper abdomen are remarkable for hepatosteatosis. Partially visualized low-density LEFT adrenal nodule as on the prior exam is most suspicious for benign lipid rich adrenal adenoma. Unchanged anterior middle column compression fracture at the T7 vertebral body with only minimal dorsal bulging of the middle column without significant compromise of the central canal. 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 Probable additional osteoblastic metastasis at the T6 vertebral body without change. No new fractures evident. IMPRESSION: #. Negative for pulmonary embolism. #. Large RIGHT lung mass encasing the hilum and associated with probable postobstructive pneumonitis similar to the prior exam. Gross near complete atelectasis of the RIGHT middle lobe. #. Small dependent RIGHT pleural effusion with interval increase. #. No significant change in mediastinal lymphadenopathy. #. Unchanged probable pathologic fracture at the T7 vertebral body.
[2018-02-25] MEDS: Levalbuterol 0.63MG/3ML NEB* UNIT OF USE INH SCH ×2 (15:06→21:13)
[2018-02-25] MEDS ORDERED: HYDROmorphone INJ1* 1 MG/ML SYRINGE ONE (15:22)
[2018-02-25] MEDS ORDERED: HYDROmorphone INJ1* 1 MG/ML SYRINGE IV PRN (15:22)
[2018-02-25 15:25] LABS: ABS Basophils 0 10^3/ul (0-0.2); ABS Eosinophils 0 10^3/ul (0-0.6); ABS Lymphocytes 0.4 10^3/ul (1.0-4.8); ABS Monocytes 0.7 10^3/ul (0-0.8); ABS Neutrophils 19.1 10^3/ul (1.5-7.7); ABS Nucleated RBC 0 10^3/ul; Eosinophil % 0 % (0-6); Hematocrit 37 % (35-47); Hemoglobin 11.7 g/dl (12.0-16.0); Mean Corpuscular HGB Conc 32 g/dl (31-36); Mean Corpuscular Hemoglobin 28 pg (27-31); Mean Corpuscular Volume 88 fL (80-97); Mean Platelet Volume 6.7 um3 (7.4-10.4); Nucleated Red Blood Cells % 0; Platelet Count 426 10^3/ul (150-450); Red Blood Count 4.15 10^6/ul (4.00-5.40); Red Cell Distribution Width 24 % (10.5-15); White Blood Count 20.3 10^3/ul (3.5-10.8)
[2018-02-25] MEDS: Ondansetron TAB* 4 MG PO SCH ×2 (15:26→19:15)
[2018-02-25] MEDS: NS 0.9% 1000 ML* 2,000 ML IV ONE ×2 (15:31→16:41)
[2018-02-25] MEDS: fentaNYL PATCHs 100 MCG/HR TRANSDERM SCH (15:38)
[2018-02-25 16:01] LABS: EGFR Non-African American 69.6 (>60)
[2018-02-25] MEDS: Enoxaparin(*) 80 MG/0.8 ML SYR SUBCUT SCH (16:16)
[2018-02-25 16:40] LABS: Urine Appearance Cloudy; Urine Blood Negative (Negative); Urine Color Yellow; Urine Ketones 1+ (Negative); Urine Protein 1+(30 mg/dL) (Negative); Urine Red Blood Cell Absent (Absent); Urine Specific Gravity 1.015 (1.010-1.030); Urine Urobilinogen Negative (Negative); Urine White Blood Cell 1+(6-10/hpf) (Absent)
[2018-02-25] MEDS: Piperacillin/Tazobac ADVAN(*) 3.375 GM in NS 0.9% 100 ML* 100 ML IVPB SCH (16:53)
[2018-02-25] MEDS: HYDROmorphone INJ1* 1 MG/ML SYRINGE IV PRN ×3 (17:55→22:23)
--- NOTE | 2018-02-25 18:24 | ECHO ---
Patient: CHRIS OSORIO [facility] Rec#: [id number] : 1965 Date: 02/25/2018 Age: 52y Height: 165 cm / 65.0 in Weight: 74.84 kg / 164.9 lbs Sex: F BSA: 1.82 Room[id number] Admit Date#: 02/25/2018 Type: Inpatient Referring: ARIA SCHIMD Reading: Marielle Baird MD Stock Checkerer: Lizett Wasserman RD Transthoracic Echocardiogram Indication: Shortness of breath BP: 88/73 HR: 97 Rhythm: NSR Findings History: HTN, COPD, lung cancer with chemotherapy, former smoker. Technical Comments: The study quality is fair. Completed at 1615. Left Ventricle: The left ventricular chamber size is decreased. Moderate to severe concentric left ventricular hypertrophy is observed. Global left ventricular wall motion and contractility are within normal limits. The left ventricle appears hyperdynamic. The estimated ejection fraction is greater than 65%. Abnormal left ventricular diastolic function is observed. Abnormal left ventricular diastolic filling is observed, consistent with impaired relaxation. Left Atrium: The left atrium is mildly dilated. Right Ventricle: Moderator Band present. The right ventricle is mildly dilated. The right ventricular global systolic function is low normal. Right Atrium: The right atrial cavity size is normal. Aortic Valve: The aortic valve is trileaflet. The aortic valve leaflets are mildly thickened. There is mild to moderate aortic regurgitation. There is no evidence of aortic stenosis. Mitral Valve: The mitral valve leaflets are mildly thickened. There is a trace of mitral regurgitation. There is no evidence of mitral stenosis. Tricuspid Valve: The tricuspid valve leaflets are normal. There is trace tricuspid regurgitation. Unable to estimate the right ventricular systolic pressure. There is no tricuspid stenosis. Pulmonic Valve: The pulmonic valve appears normal. There is a trace pulmonic regurgitation. There is no pulmonic stenosis. Pericardium: A trivial pericardial effusion is visualized. There are no signs of significant hemodynamic compromise. The pericardial effusion is seen adjacent to the right ventricle. Aorta: There is mild dilatation of the ascending aorta. There is no dilatation of the aortic arch. The aortic root is normal in size. Pulmonary Artery: The main pulmonary artery is not well visualized. Venous: The inferior vena cava appears normal in size. There is a greater than 50% respiratory change in the inferior vena cava dimension. Summary: There was not any prior study for comparison. Conclusions The left ventricular chamber size is decreased. Moderate to severe concentric left ventricular hypertrophy is observed. The left ventricle appears hyperdynamic. The estimated ejection fraction is greater than 65%. Abnormal left ventricular diastolic function is observed. Abnormal left ventricular diastolic filling is observed, consistent with impaired relaxation. The left atrium is mildly dilated. The right ventricle is mildly dilated. There is mild to moderate aortic regurgitation. There is a trace of mitral regurgitation. There is trace tricuspid regurgitation. Unable to estimate the right ventricular systolic pressure. A trivial pericardial effusion is visualized. There are no signs of significant hemodynamic compromise. The pericardial effusion is seen adjacent to the right ventricle. There is mild dilatation of the ascending aorta. Measurements Name Value Normal Range RVIDd (AP) 2D 3.2 cm (0.9 - 2.6) RVDdMajor (2D) 4.5 cm (2.2 - 4.4) RAd ISD 4CH 4.6 cm (3.4 - 4.9) RA (A4C)W 3.8 cm (2.9 - 4.6) IVSd (2D) 1.6 cm (0.6 - 1) LVPWd (2D) 1.5 cm (0.6 - 1) LVIDd (2D) 2.1 cm (3.6 - 5.4) LVIDs (2D) 1.5 cm - LV FS (2D) 11 % (25 - 45) Aortic Annulus 1.9 cm (1.4 - 2.6) Ao root diameter (2D) 3 cm (2.1 - 3.5) Ascending Ao 3.7 cm (2.1 - 3.4) Aortic arch 2.7 cm (1.8 - 3.4) LA dimension (AP) 2D 3.1 cm (2.3 - 3.8) LAd ISD 4CH 5.8 cm (2.9 - 5.3) LA ISD 4CH W 4.5 cm (2.5 - 4.5) Name Value Normal Range LA ESV BP (A/L) index 34 ml/m2 - Name Value Normal Range MV E-wave Vmax 0.6 m/sec - MV deceleration time 123 msec - MV A-wave Vmax 0.8 m/sec - MV E:A ratio 0.8 ratio - LV septal e' Vmax 0.07 m/sec - LV lateral e' Vmax 0.06 m/sec - LV E:e' septal ratio 8.57 ratio - LV E:e' lateral ratio 10 ratio - Name Value Normal Range AV Vmax 1.7 m/sec - AV VTI 27.9 cm - AV peak gradient 11 mmHg - AV mean gradient 6 mmHg - LVOT Vmax 1.2 m/sec - LVOT VTI 24.1 cm - LVOT peak gradient 6 mmHg - LVOT mean gradient 4 mmHg - AR PHT 392 msec - JEAN CARLOS Vmax 0.8 m/sec - Name Value Normal Range IVC diameter 1.4 cm - Name Value Normal Range PV Vmax 1 m/sec - PV peak gradient 4 mmHg -
[2018-02-25] MEDS: fentaNYL Patch Check Q Shift 1 NOTE FOLLOW UP SCH (18:59)
[2018-02-25] MEDS: NS 0.9% @ 50 MLS/HR IV SCH (20:21)
[2018-02-25] MEDS: methylPREDNISolone SOD 40 MG* 1 ML VIAL IV SCH (20:29)
--- NOTE | 2018-02-25 21:31 | HP ---
HISTORY AND PHYSICAL: DATE OF ADMISSION: 02/25/18 ONCOLOGIST: Dr. Mcneill. REASON FOR ADMISSION: Hypotension. CHIEF COMPLAINT: Shortness of breath. HISTORY OF PRESENT ILLNESS: A 52-year-old obese female with history of metastatic non-small cell lung cancer, COPD. The patient received chemotherapy , completed 3 cycles in June. 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 She had worsening findings on CT chest, underwent bronchoscopy in October of 2017 and was found to have metastatic disease. She had been restarted on chemotherapy in October of 2017. She had a complicated course with multiple hospitalizations for postobstructive pneumonias. She has been receiving palliative radiation therapy, received 5 fractions in December, which was also complicated with progressive back pain, compression fracture. She was also started on palliative radiation again in January. She has been receiving radiation to the T-spine. She was started on gemcitabine on 01/27/18. She has continued to have a complicated course recently with shortness of breath and dysphagia. She was admitted to the hospital on 02/17/18 for recurrent postobstructive pneumonia, COPD exacerbation , esophageal obstruction with distal stenosis, underwent dilatation. She also had GI bleed. She was discharged to hospice. She was brought in this morning for evaluation of nausea, vomiting, and worsening shortness of breath. The patient was hypotensive in the emergency room. She was also tachycardic with SVT, EKG also showing atrial fibrillation. Her pulse on arrival was 175 with blood pressure of 90/63. She reports history of atrial fibrillation, status post ablation in the past. She was initiated on Cardizem drip for rate control. She has been found to be significantly dehydrated due to poor oral intake from nausea, vomiting. She has received 2 L of Ringer's lactate in the emergency room. Septic workup was sent. She was found to have elevated lactate , elevated white count. She was admitted to ICU for management of severe sepsis with septic shock, severe dehydration, hypoxemic respiratory failure, acute COPD exacerbation, and hypotension. The patient was initiated on O2 supplementation. She was given bronchodilators in the ED. She was given IV digoxin. Septic workup was sent prior to the antibiotics. She has received Zosyn and vancomycin in the ED. The patient responded to fluid resuscitation. Her blood pressure at around 4:30 was 137/97. Her heart rate slowed down to 93 beats per minute. She has been saturating 99% on 2 L O2. She continues to receive IV fluid boluses. PAST MEDICAL HISTORY: 1. Metastatic lung cancer, non-small cell, with complicated course, with progression in spite of treatment. 2. Hypertension. PAST SURGICAL HISTORY: 1. All teeth removed in 2017. 2. Cholecystectomy in 2014. 3. Total hysterectomy in 2009. MEDICATIONS AT HOME: 1. Albuterol. 2. Dilaudid. 3. Duloxetine. 4. Eliquis. 5. Fentanyl. 6. Guaifenesin. 7. Hydromorphone. 8. Metoprolol. 9. Multivitamin. 10. Oxygen. 11. Prednisone. 12. Ventolin. 13. Augmentin. FAMILY HISTORY: Noncontributory to current complaint. SOCIAL HISTORY: She is , lives with her . She is currently in home hospice. With significant smoking history, 1 pack per day for 40 years. No alcohol or drug abuse. She is currently using nicotine patch. REVIEW OF SYSTEMS: All 14 systems reviewed and as per HPI. PHYSICAL EXAMINATION GENERAL: The patient is in bed, in no apparent distress. VITAL SIGNS: Temperature 97.1, pulse 96 beats per minute, respiratory rate 18 per minute, O2 sat 98% on 3 L, blood pressure 137/97. HEENT: Pupils equal and reactive to light. LUNGS: Diminished air entry bilaterally, scattered wheeze present. CARDIOVASCULAR: S1 and S2 present, tachycardic. ABDOMEN: Obese. Bowel sounds present. Nontender, nondistended. EXTREMITIES: Normal range of motion. NEUROLOGIC: Alert, awake, oriented x3. No focal deficits. SKIN: No rash or bruises. DIAGNOSTIC STUDIES/LAB DATA: WBC count 20.3, hemoglobin 11.7, hematocrit 37, platelet count of 426. INR 1.14. Blood gas analysis showed pH of 7.49, pCO2 of 27, pO2 of 100, bicarb 23.7, on 6 L FiO2. Sodium 138, potassium 3.6, chloride 99, bicarb 25, BUN 13, creatinine 0.86. Lactic acid 2.6, repeat lactic acid 1.6. Troponin 0.07 on admission, improved to 0.05. Total protein 5.6, albumin 3.0. Serology: Influenza A and B negative. Chest x-ray on admission was personally reviewed by me. Right perihilar mass seen, small right effusion seen. CT of the chest was personally reviewed by me - large right lung mass with no interval increase in size. There is atelectasis of the right middle lobe with small dependent right pleural effusion. No change in mediastinal adenopathy. Pathological fracture at T7 vertebra is seen. ASSESSMENT: 52-year-old obese female with metastatic lung cancer with complicated course recently and progression of the disease in spite of treatment , currently in hospice, admitted with shortness of breath, nausea, vomiting, poor oral intake, and worsening back pain. 1. Hypotension secondary to septic shock and dehydration. 2. Sepsis, likely secondary to pneumonia. 3. New atrial fibrillation with rapid ventricular response. 4. Hypoxemia secondary to chronic obstructive pulmonary disease exacerbation. 5. Leukocytosis secondary hemoconcentration and sepsis. 6. Normocytic anemia. 7. Thrombocytosis secondary to hemoconcentration. 8. Increased anion gap metabolic acidosis secondary to sepsis and lactic acidosis. 9. Elevated troponin secondary to stress-induced ischemia given hypotension. 10. Hypoalbuminemia due to poor oral intake. 11. Nausea, vomiting secondary to esophageal obstruction, status post dilatation recently. The patient scheduled to have outpatient PEG placement, which was canceled. 12. History of GI bleed, stable currently. 13. History of pulmonary embolism. Anticoagulation being held secondary to history of GI bleed. The patient was started on Lovenox given atrial fibrillation, which would be discontinued given history of GI bleed, no active bleeding at this time. PLAN: 1. Neuro: The patient is alert, awake, oriented. Slightly anxious. Able to protect her airway. No hypercapnia noted. Respiratory alkalosis secondary to hyperventilation. 2. Cardiovascular: Hypotension secondary to septic shock and severe dehydration. The patient unable to maintain any oral intake secondary to esophageal obstruction. The patient received fluid resuscitation with improvement in hypotension. Lactic acid improved. Will continue with IV hydration given n.p.o. status. Will monitor hemodynamic status closely. She was started on Cardizem drip for AFib with RVR. Will titrate as needed. Will avoid Lovenox given history of GI bleed in the past. She was also started on digoxin given hypotension with AFib with RVR. Echocardiogram ordered, results are pending at this time. 3. Respiratory: The patient with metastatic lung cancer, unable to tolerate chemotherapy. She is in hospice. She also has severe COPD with recurrent exacerbations recently. She is receiving bronchodilators and Solu-Medrol for COPD. She had episodes of hypoxemia when she came in, improved with O2 supplementation. 4. GI: The patient with esophageal obstruction, likely recurring after recent dilatation. She was having no oral intake for past 2 days along with nausea and vomiting. She is n.p.o. currently. Zofran ordered. The patient scheduled to have PEG placement, which was canceled given her acute change in status. Will need PEG placement for feeding in the future. Will obtain GI consultation. 5. Renal: No electrolyte abnormalities. Creatinine was elevated on admission secondary to hypotension from sepsis and dehydration. Improved after fluid resuscitation. The patient with an elevated anion gap metabolic acidosis. Lactic acid is elevated, improved with fluid resuscitation. 6. Infectious Disease: The patient is being empirically covered for aspiration pneumonia with Zosyn. Blood cultures have been sent. Urine cultures are pending. Influenza testing negative. 7. Heme: The patient with leukocytosis, anemia secondary to hemoconcentration. The patient also with thrombocytosis secondary to hemoconcentration. Improving with fluid hydration. 8. Musculoskeletal: No pressure ulcers. Turning and positioning every 2 hours. 9. The patient has Nicole catheter for hemodynamic monitoring and also to prevent pressure ulcers given bedridden status. 10. Psychosocial: Family at bedside, current plan and management discussed in detail with all family members. Prognosis was also discussed. 11. The patient is DNR/DNI in [facility] currently. TIME SPENT: Total time spent with admission is 60 minutes. [id number]/CPS #: [id number] TRU
[2018-02-26] MEDS: HYDROmorphone INJ1* 1 MG/ML SYRINGE IV PRN ×7 (00:30→19:39)
[2018-02-26] MEDS: Ondansetron TAB* 4 MG PO SCH ×7 (02:18→22:45)
[2018-02-26] MEDS: Piperacillin/Tazobac ADVAN(*) 3.375 GM in NS 0.9% 100 ML* 100 ML IVPB SCH ×3 (02:22→17:15)
--- NOTE | 2018-02-26 02:46 | CONS ---
ONCOLOGY CONSULTATION NOTE: DATE OF CONSULT: 02/25/18 - ROOM #444 REQUESTING PROVIDER: Dr. Laly Juan. CONSULTING PROVIDER: KWESI Randall CHIEF COMPLAINT: Shortness of breath. HISTORY OF PRESENT ILLNESS: This is an unfortunate 52-year-old female with metastatic non-small cell lung cancer, who has had multiple recent hospitalizations for recurrent post obstructive pneumonia and esophageal obstruction, who was discharged from the hospital on 02/23/18 with plan to sign on with home hospice following treatment for post-obstructive pneumonia and dilation of the distal esophagus. The patient states that shortly after returning home, she began to vomit and was unable to tolerate any solids or liquids. She contacted Medical Oncology office with her recurrent symptoms and she did not desire hospital admission at that time and instead arrangements were made for outpatient PEG tube placement, which was scheduled to occur today , 02/25/18, with Dr. Srinath Denson, Interventional Radiology. The patient's mother went to the house to pick her up for her appointment and found her acutely short of breath. The patient states that her symptoms just started suddenly this morning. Her cough and dyspnea had actually been improving since her discharge several days ago up until this morning. She denies any recent fevers. Denied associated chest pain or abdominal pain. When the patient reached the emergency department, she was found to be tachycardic with initial pulse measuring 195 beats per minute. She was hypotensive with systolic pressures in the low 80s. Initial EKG captured appears to be rapid atrial fibrillation. Labs demonstrated leukocytosis with lactic acid of 2.6 and initial troponin of 0.07. The patient received aggressive fluid hydration in the emergency department and started on Cardizem drip and received one IV bolus of digoxin at the time of evaluation. The patient was in sinus rhythm with rates in the 80 to 90 beats per minute range. PAST MEDICAL HISTORY: 1. Metastatic non-small cell lung cancer with multiple complications of her disease, most recently treated with gemcitabine and plans for home hospice. 2. Recurrent esophageal obstruction, status post dilation, 02/22/18. 3. COPD. HOME MEDICATIONS: 1. Albuterol inhaler. 2. Tessalon Perles 100 mg p.o. 3 times daily. 3. Cymbalta 60 mg p.o. daily. 4. Multivitamin 1 tablet p.o. daily. 5. Ondansetron 4 mg p.o. q.4 hours as needed for nausea and vomiting. 6. Augmentin 875/125 one tablet p.o. twice daily. 7. Fentanyl patch 100 mcg transdermal q.72 hours. 8. Robitussin DM 10 mL p.o. q.4 hours as needed for cough. 9. Dilaudid 2 to 4 mg p.o. q.4 hours as needed for pain. 10. DuoNeb inhaled q.4 hours as needed for shortness of breath. 11. Metoprolol tartrate 25 mg p.o. twice daily. 12. Omeprazole 20 mg p.o. twice daily. 13. Prednisone 60 mg p.o. daily. SOCIAL HISTORY: The patient is , lives in [place]. She has a smoking history and continues to smoke intermittently. PHYSICAL EXAM: Most recent vitals, temperature 99 degrees Fahrenheit, pulse 91 beats per minute, respiratory rate 14, oxygen saturation 96% on 3 L, and blood pressure of 115/76 mmHg. General: Chronically ill-appearing 52-year-old female accompanied by family, who is in no acute distress. HEENT: Head is normocephalic, atraumatic. Mucous membranes are pink and moist. Cardiovascular : Heart has regular rate and rhythm without murmurs, rubs, or gallops. Respiratory: Lungs have diffuse wheeze and rhonchi. Abdomen: Soft and nontender to palpation. Extremities: No edema. Skin: No concerning rashes or lesions. DIAGNOSTIC STUDIES/LAB DATA: CBC: White blood cell count of 22,900, hemoglobin of 13.2 g/dL, platelet count of 527,000. ABG shows pH of 7.49, PCO2 of 27, PO2 of 100, bicarb of 23. Comprehensive metabolic panel showed sodium of 138 mmol/L, potassium 3.6, BUN 14 , creatinine 1.14, lactic acid of 2.6. Transaminases and total bilirubin within normal limits. Troponin 0.07, on repeat 0.05 and 0.03. Urinalysis shows 1+ ketones, 1+ white blood cells. CTA shows no PE, but demonstrates large right hilar mass with what appears to be a postobstructive pneumonia and fluid atelectasis of the right middle lobe similar to prior exam. ASSESSMENT AND PLAN: This is a 52-year-old female with metastatic non-small cell lung cancer and recurrent postobstructive pneumonia and esophageal obstruction, who presents with acute respiratory distress and found to be in rapid atrial fibrillation with events for recurrent esophageal obstruction and recent nausea and vomiting and unable to tolerate anything by mouth. She was admitted to the ICU with concern for severe sepsis. She reports feeling remarkably better after fluid resuscitation. Question whether her acute presentation is a result of her rapid atrial fibrillation secondary to dehydration related to nausea and vomiting and recurrent esophageal obstruction. 1. Rapid atrial fibrillation - the patient appears to be spontaneously converted to sinus rhythm with heart rates in the 80s to 90s. Anticoagulation has been held due to recent history of gastrointestinal bleed. 2. Postobstructive pneumonia - the patient has been started on appropriate IV antibiotics and IV Solu-Medrol for associated chronic obstructive pulmonary disease exacerbation. 3. Esophageal obstruction - the patient had recent distal esophageal dilation. Her recurrent obstructions are likely multifactorial but there seems to be likely component of poor motility perhaps due to scarring related to prior radiation therapy contributing to these obstructions. The patient will remain n.p.o. at this time with plan for PEG tube placement after her respiratory status stabilizes likely early next week. 4. Recent gastrointestinal bleed - old blood seen on upper endoscopy approximately 3 weeks ago and anticoagulation has been held since that time with stable hemoglobin. Continue PPI therapy. 5. Metastatic non-small cell lung cancer - the patient has had multiple complications during her disease course and had plans to enroll in home hospice , which she will do following the discharge from this hospitalization with PEG tube in place. 6. History of pulmonary embolism - anticoagulation has been held due to recent gastrointestinal bleed - no evidence of recurrent pulmonary embolism on CTA at admission. 7. Code status. The patient is DNR. 8. DVT prophylaxis - clinical prophylaxis held due to recent gastrointestinal bleed. 9. Healthcare proxy is her . DISPOSITION: The patient has been admitted to ICU under the derrick follower service as discussed above. The patient is likely appropriate for transfer to the medical floor tomorrow. Oncology service will take over as primary team at that time. KWESI RANDALL [id number]/CPS #: [id number] TRU
[2018-02-26] MEDS: Levalbuterol 0.63MG/3ML NEB* UNIT OF USE INH SCH ×3 (03:14→15:07)
[2018-02-26] MEDS: fentaNYL Patch Check Q Shift 1 NOTE FOLLOW UP SCH ×3 (07:27→18:19)
[2018-02-26] MEDS: Enoxaparin(*) 80 MG/0.8 ML SYR SUBCUT SCH ×3 (08:00→20:47)
[2018-02-26] MEDS: methylPREDNISolone SOD 40 MG* 1 ML VIAL IV SCH ×2 (08:07→20:47)
--- NOTE | 2018-02-26 10:17 | PN ---
Progress Note - Progress Note Date of Service: 02/26/18 - Pulmonary progress note Note: Pt seen and examined at bedside. Pt reports feeling better. Denies significant SOB or cough. Back pain is improved since admission. Nausea is resolved. Active Medications Generic Name Dose Route Start Last Admin Trade Name Freq PRN Reason Stop Dose Admin Enoxaparin Sodium 75 mg 02/26/18 08:00 02/26/18 08:18 Lovenox(*) SUBCUT 75 mg Q12HR@0800,2000 ALLYSSA Administration Fentanyl 100 mcg 02/25/18 15:00 02/25/18 15:38 Duragesic Patch 100 Mcg/Hr * TRANSDERM 100 mcg Q72H ALLYSSA Administration Hydromorphone HCl 2 mg 02/25/18 17:27 02/26/18 08:07 Dilaudid Inj1s* IV 2 mg Q2H PRN Administration PAIN Piperacillin Sod/Tazobactam 100 mls @ 25 mls/hr 02/25/18 16:00 02/26/18 08:07 Sod 3.375 gm/ Sodium Chloride IVPB 25 mls/hr Q8H ALLYSSA Administration Sodium Chloride 1,000 mls @ 25 mls/hr 02/25/18 20:30 02/25/18 20:21 Ns 0.9% 1000 Ml* IV 25 mls/hr PER RATE ALLYSSA Administration Ipratropium [place] 0.5 mg 02/25/18 14:15 Atrovent 0.5 Mg Neb.Sariah* INH Q4H PRN SOB/WHEEZING Levalbuterol HCl 0.63 mg 02/25/18 15:00 02/26/18 08:25 Xopenex 0.63mg/3ml Neb* INH 0.63 mg Q6H ALLYSSA Administration Methylprednisolone Sodium Succinate 40 mg 02/25/18 21:00 02/26/18 08:07 Solu-Medrol 40 Mg IV 40 mg Q12HR ALLYSSA Administration Ondansetron HCl 4 mg 02/25/18 15:00 02/26/18 07:28 Zofran Tab* PO Not Given Q4H ALLYSSA Ondansetron HCl 4 mg 02/25/18 19:50 Zofran Inj* IV Q6H PRN NAUSEA Pharmacy Consult 1 note 02/25/18 15:00 Zosyn Per Pharmacy* FOLLOW UP .ZOSYN PER PHARMACY [facility] Pharmacy Profile Note 1 note 02/25/18 19:00 02/26/18 07:27 Fentanyl Patch Check Q Shift FOLLOW UP 1 note 0700,1900 ALLYSSA Administration Vital Signs Temp Pulse Resp BP Pulse Ox 98.6 F 96 16 112/84 97 02/26/18 09:01 02/26/18 09:01 02/26/18 09:01 02/26/18 09:00 02/26/18 09:01 O/E: Obese f in NAD HEENT: PERRLA, No JVD Lungs: Diminished air entry, scattered wheeze+ CVS: s1, s2+, tachycardic Abd: Obese, BS+ Ext: Normal ROM Skin: Dry, no rash Neuro: Alert, awake, no focal deficits Laboratory Results - last 24 hr 02/25/18 02/25/18 02/25/18 12:10 12:37 12:37 WBC 22.9 H RBC 4.61 Hgb 13.2 Hct 41 MCV 89 MCH 29 MCHC 32 RDW 24 H Plt Count 527 H D MPV 6.7 L Neut % (Auto) 89.6 H Lymph % (Auto) 4.1 L [place] % (Auto) 6.1 Eos % (Auto) 0.1 Baso % (Auto) 0.1 Absolute Neuts (auto) 20.5 H Absolute Lymphs (auto) 0.9 L Absolute Monos (auto) 1.4 H Absolute Eos (auto) 0 Absolute Basos (auto) 0 Absolute Nucleated RBC 0 Nucleated RBC % 0.1 Polychromasia 2+ Anisocytosis 2+ INR (Anticoag Therapy) 1.14 H APTT 29.1 Patient Temperature Not Reportable ABG pH 7.49 H ABG pH (Temp Correct) Not Reportable ABG pCO2 27 L ABG pCO2 (Temp Corrct Not Reportable ABG pO2 100 ABG pO2 (Temp Correct Not Reportable ABG HCO3 23.7 ABG O2 Saturation 98.8 H ABG Base Excess -1.5 Respiration Rate Not Reportable Ventilator Type Not Reportable Vent Mode Not Reportable FiO2 6 Inspiratory Time Not Reportable PEEP Not Reportable Pressure Support Not Reportable Pressure Control Not Reportable EPAP Not Reportable IPAP Not Reportable BiPAP Not Reportable Sodium Potassium Chloride Carbon Dioxide Anion Gap BUN Creatinine Est GFR ( Amer) Est GFR (Non-Af Amer) BUN/Creatinine Ratio Glucose Lactic Acid Calcium Magnesium Total Bilirubin AST ALT Alkaline Phosphatase Troponin I B-Natriuretic Peptide Total Protein Albumin Globulin Albumin/Globulin Ratio Beta HCG, Quant Urine Color Urine Appearance Urine pH Ur Specific [place] Urine Protein Urine Ketones Urine Blood Urine Nitrate Urine Bilirubin Urine Urobilinogen Ur Leukocyte Esterase Urine WBC (Auto) Urine RBC (Auto) Ur Squamous Epith Cells Urine Bacteria Hyaline Casts Urine Glucose 02/25/18 02/25/18 02/25/18 12:37 12:37 12:37 WBC RBC Hgb Hct MCV MCH MCHC RDW Plt Count MPV Neut % (Auto) Lymph % (Auto) [place] % (Auto) Eos % (Auto) Baso % (Auto) Absolute Neuts (auto) Absolute Lymphs (auto) Absolute Monos (auto) Absolute Eos (auto) Absolute Basos (auto) Absolute Nucleated RBC Nucleated RBC % Polychromasia Anisocytosis INR (Anticoag Therapy) APTT Patient Temperature ABG pH ABG pH (Temp Correct) ABG pCO2 ABG pCO2 (Temp Corrct ABG pO2 ABG pO2 (Temp Correct ABG HCO3 ABG O2 Saturation ABG Base Excess Respiration Rate Ventilator Type Vent Mode FiO2 Inspiratory Time PEEP Pressure Support Pressure Control EPAP IPAP BiPAP Sodium 138 Potassium 3.6 Chloride 97 L Carbon Dioxide 24 Anion Gap 17 H BUN 14 Creatinine 1.14 H Est GFR ( Amer) 60.8 Est GFR (Non-Af Amer) 50.3 BUN/Creatinine Ratio 12.3 Glucose 171 H Lactic Acid 2.6 H* Calcium 9.2 Magnesium 2.1 Total Bilirubin 0.80 AST 21 ALT 24 Alkaline Phosphatase 64 Troponin I 0.07 H* B-Natriuretic Peptide 244 H Total Protein 6.7 Albumin 3.6 Globulin 3.1 Albumin/Globulin Ratio 1.2 Beta HCG, Quant < 0.60 Urine Color Urine Appearance Urine pH Ur Specific [place] Urine Protein Urine Ketones Urine Blood Urine Nitrate Urine Bilirubin Urine Urobilinogen Ur Leukocyte Esterase Urine WBC (Auto) Urine RBC (Auto) Ur Squamous Epith Cells Urine Bacteria Hyaline Casts Urine Glucose 02/25/18 02/25/18 02/25/18 15:09 15:09 15:09 WBC 20.3 H RBC 4.15 Hgb 11.7 L Hct 37 MCV 88 MCH 28 MCHC 32 RDW 24 H Plt Count 426 MPV 6.7 L Neut % (Auto) 94.6 H Lymph % (Auto) 2.0 L [place] % (Auto) 3.3 Eos % (Auto) 0 Baso % (Auto) 0.1 Absolute Neuts (auto) 19.1 H Absolute Lymphs (auto) 0.4 L Absolute Monos (auto) 0.7 Absolute Eos (auto) 0 Absolute Basos (auto) 0 Absolute Nucleated RBC 0 Nucleated RBC % 0 Polychromasia Anisocytosis INR (Anticoag Therapy) APTT Patient Temperature ABG pH ABG pH (Temp Correct) ABG pCO2 ABG pCO2 (Temp Corrct ABG pO2 ABG pO2 (Temp Correct ABG HCO3 ABG O2 Saturation ABG Base Excess Respiration Rate Ventilator Type Vent Mode FiO2 Inspiratory Time PEEP Pressure Support Pressure Control EPAP IPAP BiPAP Sodium 138 Potassium 3.6 Chloride 99 L Carbon Dioxide 25 Anion Gap 14 H BUN 13 Creatinine 0.86 Est GFR ( Amer) 84.2 Est GFR (Non-Af Amer) 69.6 BUN/Creatinine Ratio 15.1 Glucose 149 H Lactic Acid 1.6 Calcium 8.6 Magnesium Total Bilirubin 0.70 AST 19 ALT 21 Alkaline Phosphatase 52 Troponin I 0.05 H* B-Natriuretic Peptide Total Protein 5.6 L Albumin 3.0 L Globulin 2.6 Albumin/Globulin Ratio 1.2 Beta HCG, Quant Urine Color Urine Appearance Urine pH Ur Specific [place] Urine Protein Urine Ketones Urine Blood Urine Nitrate Urine Bilirubin Urine Urobilinogen Ur Leukocyte Esterase Urine WBC (Auto) Urine RBC (Auto) Ur Squamous Epith Cells Urine Bacteria Hyaline Casts Urine Glucose 02/25/18 02/25/18 02/25/18 16:20 18:10 18:10 WBC RBC Hgb Hct MCV MCH MCHC RDW Plt Count MPV Neut % (Auto) Lymph % (Auto) [place] % (Auto) Eos % (Auto) Baso % (Auto) Absolute Neuts (auto) Absolute Lymphs (auto) Absolute Monos (auto) Absolute Eos (auto) Absolute Basos (auto) Absolute Nucleated RBC Nucleated RBC % Polychromasia Anisocytosis INR (Anticoag Therapy) APTT Patient Temperature ABG pH ABG pH (Temp Correct) ABG pCO2 ABG pCO2 (Temp Corrct ABG pO2 ABG pO2 (Temp Correct ABG HCO3 ABG O2 Saturation ABG Base Excess Respiration Rate Ventilator Type Vent Mode FiO2 Inspiratory Time PEEP Pressure Support Pressure Control EPAP IPAP BiPAP Sodium Potassium Chloride Carbon Dioxide Anion Gap BUN Creatinine Est GFR ( Amer) Est GFR (Non-Af Amer) BUN/Creatinine Ratio Glucose Lactic Acid 0.9 Calcium Magnesium Total Bilirubin AST ALT Alkaline Phosphatase Troponin I 0.03 B-Natriuretic Peptide Total Protein Albumin Globulin Albumin/Globulin Ratio Beta HCG, Quant Urine Color Yellow Urine Appearance Cloudy Urine pH 5.0 Ur Specific [place] 1.015 Urine Protein 1+(30 mg/dl) A Urine Ketones 1+ A Urine Blood Negative Urine Nitrate Negative Urine Bilirubin Negative Urine Urobilinogen Negative Ur Leukocyte Esterase Negative Urine WBC (Auto) 1+(6-10/hpf) A Urine RBC (Auto) Absent Ur Squamous Epith Cells Present A Urine Bacteria Absent Hyaline Casts Present A Urine Glucose Negative Echo: Diastolic dysfunction, trivial pericardial effusion CTA: No filling defects, large rt lung mass, mediastinal adenopathy I/R: 52 y o obese f with metastatic NSCL cancer s/p chemo/XRT with complicated course, with recurrent hospitalizations, with esophageal obstruction s/p dilation, awaiting PEG placement Pt admitted for SOB, worsening back pain, hypotension and A.fib with RVR Hypotension likely sec to severe dehydration and possible sepsis from PNA Pt with A.fib with RVR on admission, rate controlled with cardizem She converted to normal sinus rhythm yesterday and has been off cardizem drip Hypotension improved with fluid resuscitation, didnot need pressors In sinus tachycardia currently On IVF at 25cc/hr since last night Nausea resolved, will start liquid diet and advance as tolerated Aspiration precautions Wheeze improved, c/w bronchodilators On empiric treatment for aspiration PNA given vomiting for few days prior to admission Lactic acid normalized, cx negative to date Back pain- c/w Dilaudid and Fentanyl patch Not on anticoagulation for A.fib and prior h/o PE due to h/o GI bleed CTA didnot show acute PE UO good, no electrolyte abnormalities, Nicole d/radha Pt stable to be transferred to regular medical floor under Dr Paredes`s service D/w Dr Paredes
[2018-02-26] MEDS: Ondansetron INJ* 2 MG/ML VIAL IV PRN ×2 (11:41→19:35)
[2018-02-26] MEDS: NS 0.9% @ 50 MLS/HR IV SCH (16:01)
[2018-02-26] MEDS: Levalbuterol 1.25MG/0.5ML NEB INH SCH (19:26)
[2018-02-27] MEDS: Piperacillin/Tazobac ADVAN(*) 3.375 GM in NS 0.9% 100 ML* 100 ML IVPB SCH ×3 (00:04→15:16)
[2018-02-27] MEDS: HYDROmorphone INJ1* 1 MG/ML SYRINGE IV PRN ×8 (00:30→22:05)
[2018-02-27] MEDS: Levalbuterol 1.25MG/0.5ML NEB INH SCH ×4 (01:07→19:53)
[2018-02-27] MEDS: Ondansetron TAB* 4 MG PO SCH ×6 (01:57→23:30)
[2018-02-27 05:39] LABS: ABS Basophils 0 10^3/ul (0-0.2); ABS Eosinophils 0 10^3/ul (0-0.6); ABS Lymphocytes 0.3 10^3/ul (1.0-4.8); ABS Monocytes 0.8 10^3/ul (0-0.8); ABS Neutrophils 19.4 10^3/ul (1.5-7.7); ABS Nucleated RBC 0 10^3/ul; Eosinophil % 0 % (0-6); Hematocrit 31 % (35-47); Hemoglobin 9.6 g/dl (12.0-16.0); Lymphocyte % 1.6 % (25-47); Mean Corpuscular HGB Conc 31 g/dl (31-36); Mean Corpuscular Hemoglobin 28 pg (27-31); Mean Corpuscular Volume 91 fL (80-97); Nucleated Red Blood Cells % 0; Platelet Count 339 10^3/ul (150-450); Red Blood Count 3.44 10^6/ul (4.00-5.40); Red Cell Distribution Width 24 % (10.5-15); White Blood Count 20.5 10^3/ul (3.5-10.8)
[2018-02-27] MEDS: fentaNYL Patch Check Q Shift 1 NOTE FOLLOW UP SCH ×2 (06:47→20:20)
[2018-02-27] MEDS: Enoxaparin(*) 80 MG/0.8 ML SYR SUBCUT SCH ×2 (09:16→20:34)
[2018-02-27] MEDS: DULoxetine DR CAP* 60 MG CAP.DR PO SCH (09:16)
[2018-02-27] MEDS: methylPREDNISolone SOD 40 MG* 1 ML VIAL IV SCH (09:18)
[2018-02-27 13:19] LABS: Urine Appearance Turbid; Urine Blood Negative (Negative); Urine Color Yellow; Urine Ketones Negative (Negative); Urine Protein Negative (Negative); Urine Specific Gravity 1.029 (1.010-1.030); Urine Urobilinogen Negative (Negative)
--- NOTE | 2018-02-27 16:24 | PN ---
Progress Note - Progress Note Date of Service: 02/27/18 - Pulm f/u note Note: Pt seen and examined at bedside. Pt reports feeling better. Pain is present but manageable. Denies SOB, has intermittent cough. Active Medications Generic Name Dose Route Start Last Admin Trade Name Freq PRN Reason Stop Dose Admin Duloxetine HCl 60 mg 02/27/18 09:00 02/27/18 09:16 Cymbalta Cap* PO 60 mg DAILY ALLYSSA Administration Enoxaparin Sodium 75 mg 02/26/18 08:00 02/27/18 09:16 Lovenox(*) SUBCUT 75 mg Q12HR@0800,2000 ALLYSSA Administration Fentanyl 100 mcg 02/25/18 15:00 02/25/18 15:38 Duragesic Patch 100 Mcg/Hr * TRANSDERM 100 mcg Q72H ALLYSSA Administration Hydromorphone HCl 2 mg 02/25/18 17:27 02/27/18 14:43 Dilaudid Inj1s* IV 2 mg Q2H PRN Administration PAIN Piperacillin Sod/Tazobactam 100 mls @ 25 mls/hr 02/25/18 16:00 02/27/18 15:16 Sod 3.375 gm/ Sodium Chloride IVPB 25 mls/hr Q8H ALLYSSA Administration Sodium Chloride 1,000 mls @ 25 mls/hr 02/25/18 20:30 02/26/18 16:01 Ns 0.9% 1000 Ml* IV 25 mls/hr PER RATE ALLYSSA Administration Ipratropium [place] 0.5 mg 02/25/18 14:15 Atrovent 0.5 Mg Neb.Sariah* INH Q4H PRN SOB/WHEEZING Levalbuterol HCl 1.25 mg 02/26/18 19:00 02/27/18 13:13 Xopenex 1.25 Mg/0.5 Ml Neb.Sariah* INH 1.25 mg [id number] AWAKE ALLYSSA Administration Methylprednisolone Sodium Succinate 40 mg 02/28/18 09:00 Solu-Medrol 40 Mg IV DAILY ALLYSSA Ondansetron HCl 4 mg 02/25/18 15:00 02/27/18 14:43 Zofran Tab* PO 4 mg Q4H ALLYSSA Administration Ondansetron HCl 4 mg 02/25/18 19:50 02/26/18 19:35 Zofran Inj* IV 4 mg Q6H PRN Administration NAUSEA Pharmacy Consult 1 note 02/25/18 15:00 Zosyn Per Pharmacy* FOLLOW UP .ZOSYN PER PHARMACY [facility] Pharmacy Profile Note 1 note 02/25/18 19:00 02/27/18 06:47 Fentanyl Patch Check Q Shift FOLLOW UP 1 note 0700,1900 [facility] Administration Vital Signs Temp Pulse Resp BP Pulse Ox 98.1 F 96 16 167/94 96 02/27/18 15:12 02/27/18 15:12 02/27/18 15:28 02/27/18 15:12 02/27/18 15:12 O/E: Pt in NAD, sitting up in bed HEENT: PERRLA, No JVD Lungs: Wheeze + b/l CVS: S1, S2+, regular Abd: Obese, BS+ Ext: Normal ROM Skin: No rash Neuro: Alert, awake, no focal defecits Laboratory Results - last 24 hr 02/27/18 02/27/18 05:18 13:10 WBC 20.5 H RBC 3.44 L Hgb 9.6 L Hct 31 L MCV 91 MCH 28 MCHC 31 RDW 24 H Plt Count 339 MPV 7.0 L Neut % (Auto) 94.5 H Lymph % (Auto) 1.6 L [place] % (Auto) 3.9 Eos % (Auto) 0 Baso % (Auto) 0 Absolute Neuts (auto) 19.4 H Absolute Lymphs (auto) 0.3 L Absolute Monos (auto) 0.8 Absolute Eos (auto) 0 Absolute Basos (auto) 0 Absolute Nucleated RBC 0 Nucleated RBC % 0 Urine Color Yellow Urine Appearance Turbid Urine pH 5.0 Ur Specific [place] 1.029 Urine Protein Negative Urine Ketones Negative Urine Blood Negative Urine Nitrate Negative Urine Bilirubin Negative Urine Urobilinogen Negative Ur Leukocyte Esterase Negative Urine Glucose Negative Echo: Diastolic dysfunction, trivial pericardial effusion CTA: No filling defects, large rt lung mass, mediastinal adenopathy I/R: 52 y o obese f with metastatic NSCL cancer s/p chemo/XRT with complicated course, with recurrent hospitalizations, with esophageal obstruction s/p dilation, awaiting PEG placement Pt admitted for SOB, worsening back pain, hypotension and A.fib with RVR Hypotension likely sec to severe dehydration and possible sepsis from PNA Pt with A.fib with RVR on admission, rate controlled with cardizem She converted to normal sinus rhythm and has been off cardizem drip Hypotension improved with fluid resuscitation, didnot need pressors Tolerating diet and advance as tolerated NPO after midnight for PEG placement tomorrow Wheeze improved, c/w bronchodilators Taper steroids as tolerated On empiric treatment for aspiration PNA given vomiting for few days prior to admission Lactic acid normalized, cx negative to date Back pain- c/w Dilaudid and Fentanyl patch Not on anticoagulation for A.fib and prior h/o PE due to h/o GI bleed CTA didnot show acute PE
[2018-02-28] MEDS: Piperacillin/Tazobac ADVAN(*) 3.375 GM in NS 0.9% 100 ML* 100 ML IVPB SCH ×4 (00:40→23:57)
[2018-02-28] MEDS: Levalbuterol 1.25MG/0.5ML NEB INH SCH ×4 (01:12→19:59)
[2018-02-28] MEDS: HYDROmorphone INJ1* 1 MG/ML SYRINGE IV PRN ×7 (04:40→23:43)
[2018-02-28] MEDS: Ondansetron TAB* 4 MG PO SCH ×6 (04:40→23:42)
[2018-02-28 06:12] LABS: ABS Basophils 0 10^3/ul (0-0.2); ABS Eosinophils 0 10^3/ul (0-0.6); ABS Lymphocytes 0.3 10^3/ul (1.0-4.8); ABS Neutrophils 12.3 10^3/ul (1.5-7.7); ABS Nucleated RBC 0 10^3/ul; Eosinophil % 0.1 % (0-6); Hematocrit 26 % (35-47); Hemoglobin 8.1 g/dl (12.0-16.0); Lymphocyte % 2.4 % (25-47); Mean Corpuscular HGB Conc 31 g/dl (31-36); Mean Corpuscular Hemoglobin 28 pg (27-31); Mean Corpuscular Volume 91 fL (80-97); Mean Platelet Volume 6.9 um3 (7.4-10.4); Nucleated Red Blood Cells % 0; Platelet Count 221 10^3/ul (150-450); Red Blood Count 2.92 10^6/ul (4.00-5.40); Red Cell Distribution Width 23 % (10.5-15); White Blood Count 13.7 10^3/ul (3.5-10.8)
[2018-02-28] MEDS: fentaNYL Patch Check Q Shift 1 NOTE FOLLOW UP SCH ×2 (07:11→19:33)
[2018-02-28] MEDS: Ipratropium 0.5MG/2.5ML NEB* 0.5 MG/2.5 ML NEB.SOLN INH PRN (07:35)
[2018-02-28] MEDS: methylPREDNISolone SOD 40 MG* 1 ML VIAL IV SCH (07:43)
[2018-02-28] MEDS: DULoxetine DR CAP* 60 MG CAP.DR PO SCH (07:43)
[2018-02-28] MEDS: Enoxaparin(*) 80 MG/0.8 ML SYR SUBCUT SCH (07:44)
[2018-02-28] MEDS ORDERED: Furosemide IV* 10 MG/ML 2 ML VIAL (20 MG) IV ONE (08:56)
[2018-02-28] MEDS: Pantoprazole IV* 40 MG IV SCH (10:12)
--- NOTE | 2018-02-28 14:34 | PN ---
Progress Note - Progress Note Date of Service: 02/28/18 SOAP: Subjective: [Some mild increased SOB today. Cough is unchanged. Now tolerating liquids well. No vomiting. No further episodes of afib. No CP or SOB.] Objective: [ Laboratory Results - last 24 hr 02/28/18 05:57 WBC 13.7 H RBC 2.92 L Hgb 8.1 L Hct 26 L MCV 91 MCH 28 MCHC 31 RDW 23 H Plt Count 221 MPV 6.9 L Neut % (Auto) 90.1 H Lymph % (Auto) 2.[address] [place] % (Auto) 7.1 H Eos % (Auto) 0.1 Baso % (Auto) 0.3 Absolute Neuts (auto) 12.3 H Absolute Lymphs (auto) 0.3 L Absolute Monos (auto) 1.0 H Absolute Eos (auto) 0 Absolute Basos (auto) 0 Absolute Nucleated RBC 0 Nucleated RBC % 0 Duloxetine HCl (Cymbalta Cap*) 60 mg PO DAILY [facility] Last Admin: 02/28/18 07:43 Dose: 60 mg Fentanyl (Duragesic Patch 100 Mcg/Hr *) 100 mcg TRANSDERM Q72H [facility] Last Admin: 02/25/18 15:38 Dose: 100 mcg Hydromorphone HCl (Dilaudid Inj1s*) 2 mg IV Q2H PRN PRN Reason: PAIN Last Admin: 02/28/18 12:48 Dose: 2 mg Piperacillin Sod/Tazobactam (Sod 3.375 gm/ Sodium Chloride) 100 mls @ 25 mls/ hr IVPB Q8H [facility] Last Admin: 02/28/18 07:57 Dose: 25 mls/hr Ipratropium [place] (Atrovent 0.5 Mg Neb.Sariah*) 0.5 mg INH Q4H PRN PRN Reason: SOB/WHEEZING Last Admin: 02/28/18 07:35 Dose: 0.5 mg Levalbuterol HCl (Xopenex 1.25 Mg/0.5 Ml Neb.Sariah*) 1.25 mg INH [id number] AWAKE [facility] Last Admin: 02/28/18 13:43 Dose: 1.25 mg Methylprednisolone Sodium Succinate (Solu-Medrol 40 Mg) 40 mg IV DAILY [facility] Last Admin: 02/28/18 07:43 Dose: 40 mg Ondansetron HCl (Zofran Tab*) 4 mg PO Q4H [facility] Last Admin: 02/28/18 12:47 Dose: 4 mg Ondansetron HCl (Zofran Inj*) 4 mg IV Q6H PRN PRN Reason: NAUSEA Last Admin: 02/26/18 19:35 Dose: 4 mg Pantoprazole Sodium (Protonix Iv*) 40 mg IV DAILY [facility] Last Admin: 02/28/18 10:12 Dose: 40 mg Pharmacy Consult (Zosyn Per Pharmacy*) 1 note FOLLOW UP .ZOSYN PER PHARMACY [facility] Pharmacy Profile Note (Fentanyl Patch Check Q Shift) 1 note FOLLOW UP 0700, 1900 [facility] Last Admin: 02/28/18 07:11 Dose: 1 note Vital Signs: Temp Pulse Resp BP Pulse Ox 97.8 F 94 18 141/72 95 02/28/18 07:18 02/28/18 13:46 02/28/18 13:46 02/28/18 07:18 02/28/18 13:46 Exam: Gen: chronically ill and cushingoid in NAD CV: RRR no m/r/g Resp: few crackles and occasional wheeze Abd: soft and nonTTP Ext: no edema] Assessment: [52 yo female with metastatic NSCLC with multiple complications who presented with rapid afib, hypotension and concern for severe sepsis initially admitted to ICU. ] Plan: [1. Rapid afib - spontaneously converted to sinus shortly after admission 2. GI bleed - recent evidence of GI bleeding and anticoagulation for her prior PE has been held since that time - anticoagulation was restarted this hospitalization with noted drop in Hgb - anticoagulation stopped - start IV Protonix - cont oral PPI at discharge 3. Recurrent esophageal obstruction - recent dilation with Dr Zapata of distal esophagus - she reobstructed shortly after dilation - mechanism of obstruction is more likely due to a combination of poor esophageal motility and edentulous state - requires PEG tube for appropriate nutrition, this was scheduled as an outpatient the day of admission - asked GI to please evaluate for placement tomorrow 4. Postobstructive pneumonia - cont Zosyn - afebrile 5. COPD - cont Solumedrol (dose decreased to 40 mg IV daily) 6. Metastatic NSCLC - plan for home hospice following PEG tube placement Dispo: PEG tube placement 03/01 with GI
[2018-02-28] MEDS: fentaNYL PATCHs 100 MCG/HR TRANSDERM SCH (15:08)
--- NOTE | 2018-02-28 17:01 | CONS ---
CONSULTATION REPORT: DATE OF CONSULT: 02/28/18 INDICATION: Potential for feeding tube/PEG tube. NARRATIVE: Mrs. Santiago is a very pleasant 52-year-old female, well known to our service. She has a history of metastatic lung cancer, who is opting for hospice care services. I saw her last week for her dysphagia. She was dilated last Wednesday by Dr. Zapata. This did help with her dysphagia; however, she still continues to have significant swallowing difficulties. It is felt that at some point, she will need a PEG tube and once she goes on hospice services, she will be unable to get a PEG tube at that point. The patient was scheduled to have an outpatient interventional radiology PEG tube placed this past Wednesday ; however, she developed worsening pulmonary and respiratory issues, was admitted to the hospital and missed her PEG tube appointment. She currently is breathing better. She states that she is back at baseline. She did receive Lovenox today and she has been fed today too. PAST MEDICAL HISTORY: Significant for metastatic non-small lung cancer, esophageal dysmotility, COPD, atrial fibrillation. MEDICATIONS AT HOME: Include: 1. Cymbalta. 2. Multivitamin. 3. Albuterol. 4. Zofran. 5. Fentanyl patch. 6. Robitussin. 7. Dilaudid. 8. Metoprolol. 9. Omeprazole. 10. Prednisone. SOCIAL HISTORY: She is and she lives in [place]. She continues to smoke. REVIEW OF SYSTEMS: Twelve systems were reviewed and other than that mentioned in the HPI were unremarkable. PHYSICAL EXAM: Temperature is 97.8, blood pressure is 141/72, pulse is 82, respiratory rate of 16, O2 sat is 97% on 3 L. General: Chronically ill- appearing young female, in no apparent distress, alert, oriented, pleasant, fluent. HEENT: Mucous membranes are moist without lesions, ulcers, or exudate. Neck is supple. Trachea is midline. Head is normocephalic, atraumatic. Heart : Regular rate and rhythm. Lungs: Diffuse expiratory wheezes bilaterally, coarse breath sounds, poor inspiratory movement. Abdomen is obese. Positive bowel sounds. No scars on the left upper quadrant. Skin is warm and dry. LABORATORY DATA: Of note, white count is 13.7, hemoglobin is 8.1, platelets of 221. INR is 1.14. BUN was 13, creatinine is 0.86. ASSESSMENT AND PLAN: A pleasant, but unfortunate 52-year-old female, who needs a PEG tube. Unfortunately, IR is unable to place the PEG tube this week. Both Surgery and GI have been called. She did receive Lovenox and was fed today, thus we cannot do it today. Potentially tomorrow, we will need to get Anesthesia to help with sedation. They will need to see her additionally. Her Lovenox has been discontinued and she is not on anticoagulation right now. She will be made n.p.o. after midnight and hopefully a feeding tube can be placed tomorrow with anesthesia services. [id number]/[facility] #: [id number] TRU
[2018-03-01] MEDS: Levalbuterol 1.25MG/0.5ML NEB INH SCH ×5 (01:52→20:21)
[2018-03-01] MEDS: Ondansetron TAB* 4 MG PO SCH ×5 (03:24→22:21)
[2018-03-01] MEDS: HYDROmorphone INJ1* 1 MG/ML SYRINGE IV PRN ×6 (06:55→22:19)
[2018-03-01] MEDS: Ondansetron INJ* 2 MG/ML VIAL IV PRN ×3 (06:55→22:18)
[2018-03-01] MEDS: Pantoprazole IV* 40 MG IV SCH (07:00)
[2018-03-01] MEDS: methylPREDNISolone SOD 40 MG* 1 ML VIAL IV SCH ×2 (07:00→22:18)
[2018-03-01] MEDS: fentaNYL Patch Check Q Shift 1 NOTE FOLLOW UP SCH ×2 (07:12→19:37)
[2018-03-01] MEDS: Piperacillin/Tazobac ADVAN(*) 3.375 GM in NS 0.9% 100 ML* 100 ML IVPB SCH ×2 (09:16→18:37)
[2018-03-01] MEDS: DULoxetine DR CAP* 60 MG CAP.DR PO SCH ×2 (09:21→09:24)
[2018-03-01] MEDS ORDERED: Furosemide IV* 10 MG/ML 2 ML VIAL (20 MG) IV ONE (09:31)
[2018-03-01 09:48] LABS: ABS Basophils 0 10^3/ul (0-0.2); ABS Eosinophils 0 10^3/ul (0-0.6); ABS Lymphocytes 0.2 10^3/ul (1.0-4.8); ABS Monocytes 0.4 10^3/ul (0-0.8); ABS Neutrophils 9.9 10^3/ul (1.5-7.7); ABS Nucleated RBC 0 10^3/ul; Eosinophil % 0.1 % (0-6); Hematocrit 26 % (35-47); Hemoglobin 8.3 g/dl (12.0-16.0); Lymphocyte % 1.7 % (25-47); Mean Corpuscular HGB Conc 32 g/dl (31-36); Mean Corpuscular Hemoglobin 28 pg (27-31); Mean Corpuscular Volume 89 fL (80-97); Mean Platelet Volume 6.8 um3 (7.4-10.4); Nucleated Red Blood Cells % 0; Platelet Count 189 10^3/ul (150-450); Red Blood Count 2.92 10^6/ul (4.00-5.40); Red Cell Distribution Width 22 % (10.5-15); White Blood Count 10.5 10^3/ul (3.5-10.8)
[2018-03-01 10:07] LABS: EGFR Non-African American 77.9 (>60)
--- NOTE | 2018-03-01 10:59 | PN ---
Progress Note - Progress Note Date of Service: 03/01/18 SOAP: Subjective: [Reports some increased SOB today. [place] better after Lasix yesterday. Repeat dose ordered for this am. ] Objective: [ Laboratory Results - last 24 hr 03/01/18 03/01/18 09:38 09:38 WBC 10.5 RBC 2.92 L Hgb 8.3 L Hct 26 L MCV 89 MCH 28 MCHC 32 RDW 22 H Plt Count 189 MPV 6.8 L Neut % (Auto) 94.5 H Lymph % (Auto) 1.7 L [place] % (Auto) 3.7 Eos % (Auto) 0.1 Baso % (Auto) 0 Absolute Neuts (auto) 9.9 H Absolute Lymphs (auto) 0.2 L Absolute Monos (auto) 0.4 Absolute Eos (auto) 0 Absolute Basos (auto) 0 Absolute Nucleated RBC 0 Nucleated RBC % 0 Sodium 143 Potassium 3.4 L Chloride 106 Carbon Dioxide 32 Anion Gap 5 BUN 18 Creatinine 0.78 Est GFR ( Amer) 94.2 Est GFR (Non-Af Amer) 77.9 BUN/Creatinine Ratio 23.1 H Glucose 101 H Calcium 8.9 Total Bilirubin 0.30 AST 22 ALT 28 Alkaline Phosphatase 56 Total Protein 5.5 L Albumin 3.2 Globulin 2.3 Albumin/Globulin Ratio 1.4 Duloxetine HCl (Cymbalta Cap*) 60 mg PO DAILY [facility] Last Admin: 03/01/18 09:24 Dose: Not Given Fentanyl (Duragesic Patch 100 Mcg/Hr *) 100 mcg TRANSDERM Q72H [facility] Last Admin: 02/28/18 15:08 Dose: 100 mcg Hydromorphone HCl (Dilaudid Inj1s*) 2 mg IV Q2H PRN PRN Reason: PAIN Last Admin: 03/01/18 09:21 Dose: 2 mg Piperacillin Sod/Tazobactam (Sod 3.375 gm/ Sodium Chloride) 100 mls @ 25 mls/ hr IVPB Q8H [facility] Last Admin: 03/01/18 09:16 Dose: 25 mls/hr Ipratropium [place] (Atrovent 0.5 Mg Neb.Sariah*) 0.5 mg INH Q4H PRN PRN Reason: SOB/WHEEZING Last Admin: 02/28/18 07:35 Dose: 0.5 mg Levalbuterol HCl (Xopenex 1.25 Mg/0.5 Ml Neb.Sariah*) 1.25 mg INH [id number] AWAKE [facility] Last Admin: 03/01/18 08:19 Dose: 1.25 mg Methylprednisolone Sodium Succinate (Solu-Medrol 40 Mg) 40 mg IV BID [facility] Ondansetron HCl (Zofran Tab*) 4 mg PO Q4H [facility] Last Admin: 03/01/18 06:55 Dose: Not Given Ondansetron HCl (Zofran Inj*) 4 mg IV Q6H PRN PRN Reason: NAUSEA Last Admin: 03/01/18 06:55 Dose: 4 mg Pantoprazole Sodium (Protonix Iv*) 40 mg IV DAILY [facility] Last Admin: 03/01/18 07:00 Dose: 40 mg Pharmacy Consult (Zosyn Per Pharmacy*) 1 note FOLLOW UP .ZOSYN PER PHARMACY [facility] Pharmacy Profile Note (Fentanyl Patch Check Q Shift) 1 note FOLLOW UP 0700, 1900 [facility] Last Admin: 03/01/18 07:12 Dose: 1 note Vital Signs: Temp Pulse Resp BP Pulse Ox 98.3 F 68 22 136/80 94 03/01/18 07:38 03/01/18 08:21 03/01/18 09:21 03/01/18 07:38 03/01/18 08:21 Exam: Gen: chronically ill and cushingoid in NAD CV: RRR no m/r/g Resp: few crackles and wheeze Abd: soft and nonTTP Ext: no edema] Assessment: [52 yo female with metastatic NSCLC with multiple complications who presented with rapid afib, hypotension and concern for severe sepsis initially admitted to ICU. ] Plan: [1. Rapid afib - spontaneously converted to sinus shortly after admission 2. GI bleed - recent evidence of GI bleeding and anticoagulation for her prior PE has been held since that time - anticoagulation was restarted this hospitalization with noted drop in Hgb - anticoagulation stopped - started IV Protonix - cont oral PPI at discharge 3. Recurrent esophageal obstruction - recent dilation with Dr Zapata of distal esophagus - she reobstructed shortly after dilation - mechanism of obstruction is more likely due to a combination of poor esophageal motility and edentulous state - requires PEG tube for appropriate nutrition, this was scheduled as an outpatient the day of admission - plan for PEG placement today with Dr Benny 4. Postobstructive pneumonia - cont Zosyn - afebrile 5. COPD - cont Solumedrol, increase back to bid dosing 6. Metastatic NSCLC - plan for home hospice following PEG tube placement Dispo: PEG tube placement today with GI, home after tube feedings are appropriately established]
[2018-03-01] MEDS ORDERED: Famotidine IV* 10 MG/ML 2 ML (20 mg) IV ONE (11:55)
[2018-03-01] MEDS ORDERED: Buffered Lidocaine 0.9% SYRIN* 5 ML/SYR SYRINGE INTRADERM ONE (11:55)
[2018-03-01] MEDS ORDERED: Metoclopramide IV* 5 MG/ML 2 ML VIAL IV SLOW PU ONE (11:55)
[2018-03-01] MEDS ORDERED: Morphine VIAL* 10 MG/ML 1 ML VIAL ONE (15:13)
[2018-03-01] MEDS ORDERED: Famotidine IV* 10 MG/ML 2 ML (20 mg) ONE (15:36)
[2018-03-01] MEDS ORDERED: Metoclopramide IV* 5 MG/ML 2 ML VIAL ONE (15:36)
[2018-03-01] MEDS ORDERED: Levalbuterol 1.25MG/0.5ML NEB ONE (15:54)
[2018-03-01] MEDS ORDERED: Midazolam* 1 MG/ML 2 ML VIAL (2 MG) ONE (16:01)
[2018-03-01] MEDS ORDERED: Propofol* 10 MG/ML 20 ML BTL IV PUSH ONE ×2 (16:01→16:02)
[2018-03-01] MEDS ORDERED: Lidocaine 2% PF * 5 ML VIAL ONE ×2 (16:02→16:40)
[2018-03-01] MEDS ORDERED: KETAMINE HCL* 50 MG/ML 10 ML VIAL ONE (16:02)
[2018-03-01] MEDS ORDERED: Piperacillin/Tazobactam VIAL*) 3.375 GM VIAL (COMPD & OVERRIDE) IVPB ONE (16:04)
[2018-03-01] MEDS ORDERED: ZOSYN 3.375 GM x ONE DOSE over 30 miuntes IVPB ×2 (16:20)
[2018-03-01] MEDS ORDERED: Metoclopramide IV* 5 MG/ML 2 ML VIAL IV PRN (17:13)
[2018-03-01] MEDS ORDERED: Acetaminophen IV 1GM/100ML * 1,000 MG/100 ML VIAL IVPB ONE (17:13)
[2018-03-01] MEDS ORDERED: Ketorolac INJ* 30 MG/ML 1 ML VIAL IV PRN (17:13)
[2018-03-01] MEDS ORDERED: fentaNYL* 50 MCG/ML 2 ML VIAL (100 MCG VIAL) IV PRN (17:13)
[2018-03-01] MEDS ORDERED: Ondansetron INJ* 2 MG/ML VIAL IV PRN (17:13)
[2018-03-01] MEDS ORDERED: Naloxone* 0.4 MG/ML 1 ML VIAL IV PRN (17:13)
[2018-03-01] MEDS ORDERED: Labetalol IV* 5 MG/ML 20 ML VIAL ONE (17:23)
--- NOTE | 2018-03-01 18:03 | PN ---
Progress Note - Progress Note Date of Service: 03/01/18 - Pulm consult f/u note Note: Pt seen and examined at bedside. Pt reports significant improvement in breathing. Awaiting PEG placement. Denies nausea. Able to toelrate feeds, is NPO today for PEG Active Medications Generic Name Dose Route Start Last Admin Trade Name Freq PRN Reason Stop Dose Admin Duloxetine HCl 60 mg 02/27/18 09:00 03/01/18 09:24 Cymbalta Cap* PO Not Given DAILY ALLYSSA Fentanyl 100 mcg 02/25/18 15:00 02/28/18 15:08 Duragesic Patch 100 Mcg/Hr * TRANSDERM 100 mcg Q72H ALLYSSA Administration Fentanyl Citrate 50 mcg 03/01/18 17:13 Fentanyl* IV 03/01/18 19:00 Q5M PRN PAIN - MODERATE Hydromorphone HCl 2 mg 02/25/18 17:27 03/01/18 13:29 Dilaudid Inj1s* IV 2 mg Q2H PRN Administration PAIN Piperacillin Sod/Tazobactam 100 mls @ 25 mls/hr 02/25/18 16:00 03/01/18 09:16 Sod 3.375 gm/ Sodium Chloride IVPB 25 mls/hr Q8H ALLYSSA Administration Lactated Ringer's 1,000 mls @ 125 mls/hr 03/01/18 12:00 03/01/18 14:10 Lactated Ringers 1000 Ml Bag* IV 125 mls/hr PER RATE ALLYSSA Administration Ipratropium [place] 0.5 mg 02/25/18 14:15 02/28/18 07:35 Atrovent 0.5 Mg Neb.Sariah* INH 0.5 mg Q4H PRN Administration SOB/WHEEZING Ketorolac Tromethamine 30 mg 03/01/18 17:13 Toradol Inj* IV 03/01/18 19:00 ONCE PRN PAIN - MILD Levalbuterol HCl 1.25 mg 02/26/18 19:00 03/01/18 12:39 Xopenex 1.25 Mg/0.5 Ml Neb.Sariah* INH 1.25 mg [id number] AWAKE ALLYSSA Administration Methylprednisolone Sodium Succinate 40 mg 03/01/18 21:00 Solu-Medrol 40 Mg IV BID ALLYSSA Metoclopramide HCl 5 mg 03/01/18 17:13 Reglan Iv* IV 03/01/18 19:00 ONCE PRN NAUSEA/VOMITING Naloxone HCl 0.08 mg 03/01/18 17:13 Narcan* IV 03/01/18 19:00 Q2M PRN severe induced resp depression Ondansetron HCl 4 mg 02/25/18 15:00 03/01/18 11:06 Zofran Tab* PO Not Given Q4H ALLYSSA Ondansetron HCl 4 mg 02/25/18 19:50 03/01/18 11:06 Zofran Inj* IV 4 mg Q6H PRN Administration NAUSEA Ondansetron HCl 4 mg 03/01/18 17:13 Zofran Inj* IV 03/01/18 19:00 ONCE PRN NAUSEA/VOMITING Pantoprazole Sodium 40 mg 02/28/18 09:00 03/01/18 07:00 Protonix Iv* IV 40 mg DAILY [facility] Administration Pharmacy Consult 1 note 02/25/18 15:00 Zosyn Per Pharmacy* FOLLOW UP .ZOSYN PER PHARMACY [facility] Pharmacy Profile Note 1 note 02/25/18 19:00 03/01/18 07:12 Fentanyl Patch Check Q Shift FOLLOW UP 1 note 0700,1900 [facility] Administration Vital Signs Temp Pulse Resp BP Pulse Ox 97.3 F 71 20 155/88 96 03/01/18 17:12 03/01/18 17:30 03/01/18 17:12 03/01/18 17:30 03/01/18 17:30 O/E: Pt in NAD HEENT: PERRLA Lungs: Distant breath sounds, mild wheeze+ CVS: S1, S2+, regualr Abd: Obese, BS+ Ext: No edema Skin: No rash Neuro: No focal defecits Laboratory Results - last 24 hr 03/01/18 03/01/18 09:38 09:38 WBC 10.5 RBC 2.92 L Hgb 8.3 L Hct 26 L MCV 89 MCH 28 MCHC 32 RDW 22 H Plt Count 189 MPV 6.8 L Neut % (Auto) 94.5 H Lymph % (Auto) 1.[address] [facility] % (Auto) 3.7 Eos % (Auto) 0.1 Baso % (Auto) 0 Absolute Neuts (auto) 9.9 H Absolute Lymphs (auto) 0.2 L Absolute Monos (auto) 0.4 Absolute Eos (auto) 0 Absolute Basos (auto) 0 Absolute Nucleated RBC 0 Nucleated RBC % 0 Sodium 143 Potassium 3.4 L Chloride 106 Carbon Dioxide 32 Anion Gap 5 BUN 18 Creatinine 0.78 Est GFR ( Amer) 94.2 Est GFR (Non-Af Amer) 77.9 BUN/Creatinine Ratio 23.1 H Glucose 101 H Calcium 8.9 Total Bilirubin 0.30 AST 22 ALT 28 Alkaline Phosphatase 56 Total Protein 5.5 L Albumin 3.2 Globulin 2.3 Albumin/Globulin Ratio 1.4 Echo: Diastolic dysfunction, trivial pericardial effusion CTA: No filling defects, large rt lung mass, mediastinal adenopathy I/R: 52 y o obese f with metastatic NSCL cancer s/p chemo/XRT with complicated course, with recurrent hospitalizations, with esophageal obstruction s/p dilation, awaiting PEG placement, scheduled for today Pt admitted for SOB, worsening back pain, hypotension and A.fib with RVR, stable currently Wheeze improved, c/w bronchodilators c/w steroid taper On empiric treatment for aspiration PNA given vomiting for few days prior to admission Back pain- c/w Dilaudid and Fentanyl patch Not on anticoagulation for A.fib and prior h/o PE due to h/o GI bleed CTA didnot show acute PE For home hospice after PEG placement
[2018-03-02] MEDS: Ondansetron TAB* 4 MG PO SCH ×7 (00:07→22:04)
[2018-03-02] MEDS: Piperacillin/Tazobac ADVAN(*) 3.375 GM in NS 0.9% 100 ML* 100 ML IVPB SCH ×4 (00:07→23:44)
[2018-03-02] MEDS: Levalbuterol 1.25MG/0.5ML NEB INH SCH ×4 (01:03→19:31)
[2018-03-02] MEDS: HYDROmorphone INJ1* 1 MG/ML SYRINGE IV PRN ×9 (02:32→22:03)
--- NOTE | 2018-03-02 03:44 | PRO ---
DATE: 03/01/18 - ROOM #444 REFERRING PHYSICIAN: Simon Paredes* PROCEDURE: Upper gastrointestinal endoscopy and placement of a percutaneous gastrostomy INDICATIONS: A 52-year-old woman with lung cancer compressing her esophagus/ continuing dysphagia. During a sequence of admissions, gastrostomy tube has been the ultimate backup plan. It is now being elected. Informed consent was obtained with an opportunity for questions and special concerns. The patient last had Lovenox yesterday. ENDOSCOPIST: Benny MEDICATIONS: Propofol per Anesthesia. The patient also had Zosyn 3.375 g IV. FINDINGS: She is a [id number] woman, moderately overweight, somewhat pale, in no overt distress. She received a breathing treatment prior to the procedure. She was positioned on her back. EGD: Larynx - symmetrically limited views. Esophagus - easily entered and the contours were intact and normal with there being a compression and a slight resistance to scope passage at about 30 cm. Mucosa was intact. The EG junction was at 39. Stomach - generally normal contours and normal mucosa. Finger indentation was established in the distal body with good localization and correspondence to the translumination. The antrum and pylorus were normal. Duodenum - the bulb was normal. The skin was prepped, 1% lidocaine infiltrated. A 1.5 cm horizontal incision made and then the stylette was inserted into the gastric lumen. A guidewire was grasped with a snare and then pulled out through the mouth in a standard fashion. A pull traction PEG accomplished. The marking was 4.5 cm at the external skin margin. A second look endoscopy showed no abnormality. The mid esophagus did not have any injury. The scope was then withdrawn. The skin was prepared and a bolster applied at 4.5 cm. IMPRESSION: 1. Esophageal compression externally. 2. Percutaneous gastrostomy - in 4 to 5 days would back the bolster off to 5 to 5.5 cm. [id number]/[facility] #: [id number] [facility]
[2018-03-02] MEDS: fentaNYL Patch Check Q Shift 1 NOTE FOLLOW UP SCH ×2 (06:36→19:12)
[2018-03-02] MEDS: Ondansetron INJ* 2 MG/ML VIAL IV PRN ×2 (08:15→12:27)
[2018-03-02] MEDS: Pantoprazole IV* 40 MG IV SCH (08:15)
[2018-03-02] MEDS: methylPREDNISolone SOD 40 MG* 1 ML VIAL IV SCH ×2 (08:15→19:59)
[2018-03-02] MEDS: DULoxetine DR CAP* 60 MG CAP.DR PO SCH (10:49)
--- NOTE | 2018-03-02 11:35 | PN ---
Progress Note - Progress Note Date of Service: 03/02/18 SOAP: Subjective: [No new complaints. Dyspnea somewhat improved today. PEG successfully placed yesterday.] Objective: [ Duloxetine HCl (Cymbalta Cap*) 60 mg PO DAILY [facility] Last Admin: 03/02/18 10:49 Dose: Not Given Fentanyl (Duragesic Patch 100 Mcg/Hr *) 100 mcg TRANSDERM Q72H [facility] Last Admin: 02/28/18 15:08 Dose: 100 mcg Fentanyl (Duragesic Patch 25 Mcg/Hr*) 25 mcg TRANSDERM Q72H [facility] Hydromorphone HCl (Dilaudid Inj1s*) 2 mg IV Q2H PRN PRN Reason: PAIN Last Admin: 03/02/18 10:48 Dose: 2 mg Piperacillin Sod/Tazobactam (Sod 3.375 gm/ Sodium Chloride) 100 mls @ 25 mls/ hr IVPB Q8H [facility] Last Admin: 03/02/18 10:44 Dose: 25 mls/hr Sodium Chloride (Ns 0.9% 1000 Ml*) 1,000 mls @ 100 mls/hr IV PER RATE [facility] Ipratropium [place] (Atrovent 0.5 Mg Neb.Sariah*) 0.5 mg INH Q4H PRN PRN Reason: SOB/WHEEZING Last Admin: 02/28/18 07:35 Dose: 0.5 mg Levalbuterol HCl (Xopenex 1.25 Mg/0.5 Ml Neb.Sariah*) 1.25 mg INH [id number] AWAKE [facility] Last Admin: 03/02/18 07:15 Dose: 1.25 mg Methylprednisolone Sodium Succinate (Solu-Medrol 40 Mg) 40 mg IV BID [facility] Last Admin: 03/02/18 08:15 Dose: 40 mg Ondansetron HCl (Zofran Tab*) 4 mg PO Q4H [facility] Last Admin: 03/02/18 09:31 Dose: Not Given Ondansetron HCl (Zofran Inj*) 4 mg IV Q6H PRN PRN Reason: NAUSEA Last Admin: 03/02/18 08:15 Dose: 4 mg Pantoprazole Sodium (Protonix Iv*) 40 mg IV DAILY [facility] Last Admin: 03/02/18 08:15 Dose: 40 mg Pharmacy Consult (Zosyn Per Pharmacy*) 1 note FOLLOW UP .ZOSYN PER PHARMACY [facility] Pharmacy Profile Note (Fentanyl Patch Check Q Shift) 1 note FOLLOW UP 0700, 1900 [facility] Last Admin: 03/02/18 06:36 Dose: 1 note Vital Signs: Temp Pulse Resp BP Pulse Ox 98.3 F 90 16 164/88 96 03/02/18 11:05 03/02/18 11:05 03/02/18 11:05 03/02/18 11:05 03/02/18 11:05 Exam: Gen: chronically ill and cushingoid in NAD CV: RRR no m/r/g Resp: few crackles and wheeze Abd: soft and nonTTP Ext: no edema] Assessment: [52 yo female with metastatic NSCLC with multiple complications who presented with rapid afib, hypotension and concern for severe sepsis initially admitted to ICU. PEG tube successfully placed 03/01/18.] Plan: [1. Rapid afib - spontaneously converted to sinus shortly after admission 2. GI bleed - recent evidence of GI bleeding and anticoagulation for her prior PE has been held since that time - anticoagulation was restarted this hospitalization with noted drop in Hgb - anticoagulation stopped - started IV Protonix - cont oral PPI at discharge 3. Recurrent esophageal obstruction - recent dilation with Dr Zapata of distal esophagus - she reobstructed shortly after dilation - mechanism of obstruction is more likely due to a combination of poor esophageal motility and edentulous state - PEG tube successfully placed for adequate nutrition 03/01/18 - initiate tube feedings today - cont full liquid diet by mouth 4. Postobstructive pneumonia - cont Zosyn - afebrile 5. COPD - cont Solumedrol bid 6. Metastatic NSCLC - plan for home hospice Dispo: initiate tube feeding today, if tolerated well can likely dc home tomorrow with plan to sign on to Hospice
[2018-03-02] MEDS ORDERED: fentaNYL PATCH 25 MCG/HR TRANSDERM SCH (12:00)
[2018-03-02] MEDS ORDERED: Levalbuterol 1.25MG/0.5ML NEB ONE (16:18)
[2018-03-02] MEDS: NS 0.9% 1000 ML* 1,000 ML IV SCH (16:49)
--- NOTE | 2018-03-02 16:59 | PN ---
Progress Note - Progress Note Date of Service: 03/02/18 - Pulm f/u note Note: Pt seen and examined at bedside. Pt reports slight SOB, wheeze. Had PEG placement, tolerating feeds so far Active Medications Generic Name Dose Route Start Last Admin Trade Name Freq PRN Reason Stop Dose Admin Duloxetine HCl 60 mg 02/27/18 09:00 03/02/18 10:49 Cymbalta Cap* PO Not Given DAILY ALLYSSA Fentanyl 100 mcg 02/25/18 15:00 02/28/18 15:08 Duragesic Patch 100 Mcg/Hr * TRANSDERM 100 mcg Q72H ALLYSSA Administration Fentanyl 25 mcg 03/02/18 12:00 03/02/18 12:24 Duragesic Patch 25 Mcg/Hr* TRANSDERM 25 mcg Q72H ALLYSSA Administration Hydromorphone HCl 2 mg 02/25/18 17:27 03/02/18 15:46 Dilaudid Inj1s* IV 2 mg Q2H PRN Administration PAIN Piperacillin Sod/Tazobactam 100 mls @ 25 mls/hr 02/25/18 16:00 03/02/18 10:44 Sod 3.375 gm/ Sodium Chloride IVPB 25 mls/hr Q8H ALLYSSA Administration Sodium Chloride 1,000 mls @ 100 mls/hr 03/01/18 19:00 03/02/18 16:49 Ns 0.9% 1000 Ml* IV 100 mls/hr PER RATE ALLYSSA Administration Ipratropium [place] 0.5 mg 02/25/18 14:15 02/28/18 07:35 Atrovent 0.5 Mg Neb.Sariah* INH 0.5 mg Q4H PRN Administration SOB/WHEEZING Levalbuterol HCl 1.25 mg 02/26/18 19:00 03/02/18 13:09 Xopenex 1.25 Mg/0.5 Ml Neb.Sariah* INH 1.25 mg [id number] AWAKE ALLYSSA Administration Methylprednisolone Sodium Succinate 40 mg 03/01/18 21:00 03/02/18 08:15 Solu-Medrol 40 Mg IV 40 mg BID ALLYSSA Administration Ondansetron HCl 4 mg 02/25/18 15:00 03/02/18 12:43 Zofran Tab* PO Not Given Q4H ALLYSSA Ondansetron HCl 4 mg 02/25/18 19:50 03/02/18 12:27 Zofran Inj* IV 4 mg Q6H PRN Administration NAUSEA Pantoprazole Sodium 40 mg 02/28/18 09:00 03/02/18 08:15 Protonix Iv* IV 40 mg DAILY ALLYSSA Administration Pharmacy Consult 1 note 02/25/18 15:00 Zosyn Per Pharmacy* FOLLOW UP .ZOSYN PER PHARMACY [facility] Pharmacy Profile Note 1 note 02/25/18 19:00 03/02/18 06:36 Fentanyl Patch Check Q Shift FOLLOW UP 1 note 0700,1900 [facility] Administration Vital Signs Temp Pulse Resp BP Pulse Ox 98.9 F 98 17 153/87 93 03/02/18 16:18 03/02/18 16:36 03/02/18 16:36 03/02/18 16:18 03/02/18 16:36 O/E: Pt in NAD HEENT: PERRLALungs: Mild expiratory wheeze+ CVS: S1, S2+, regualr Abd: Obese, BS=, PEG + Skin: NO rash Neuro: No focal defecits Echo: Diastolic dysfunction, trivial pericardial effusion CTA: No filling defects, large rt lung mass, mediastinal adenopathy I/R: 52 y o obese f with metastatic NSCL cancer s/p chemo/XRT with complicated course, with recurrent hospitalizations, with esophageal obstruction s/p dilation, s/p PEG placement Pt admitted for SOB, worsening back pain, hypotension and A.fib with RVR, stable currently Tolerating PEG feeds Wheeze today, c/w bronchodilators c/w steroid taper On empiric treatment for aspiration PNA given vomiting for few days prior to admission Back pain- c/w Dilaudid and Fentanyl patch Not on anticoagulation for A.fib and prior h/o PE due to h/o GI bleed CTA didnot show acute PE For home hospice placement
[2018-03-03] MEDS: Levalbuterol 1.25MG/0.5ML NEB INH SCH ×4 (01:55→19:40)
[2018-03-03] MEDS: Ondansetron TAB* 4 MG PO SCH ×6 (03:08→23:26)
[2018-03-03] MEDS: NS 0.9% 1000 ML* 1,000 ML IV SCH (03:18)
[2018-03-03] MEDS: HYDROmorphone INJ1* 1 MG/ML SYRINGE IV PRN ×5 (05:05→18:43)
[2018-03-03] MEDS: fentaNYL Patch Check Q Shift 1 NOTE FOLLOW UP SCH ×2 (05:09→20:37)
[2018-03-03 07:04] LABS: Hematocrit 27 % (35-47); Hemoglobin 8.3 g/dl (12.0-16.0); Mean Corpuscular HGB Conc 31 g/dl (31-36); Mean Corpuscular Hemoglobin 28 pg (27-31); Mean Corpuscular Volume 90 fL (80-97); Mean Platelet Volume 7.4 um3 (7.4-10.4); Platelet Count 167 10^3/ul (150-450); Red Blood Count 2.96 10^6/ul (4.00-5.40); Red Cell Distribution Width 24 % (10.5-15); White Blood Count 12.2 10^3/ul (3.5-10.8)
[2018-03-03 07:18] LABS: EGFR Non-African American 85.4 (>60)
[2018-03-03] MEDS: Pantoprazole IV* 40 MG IV SCH (08:33)
[2018-03-03] MEDS: methylPREDNISolone SOD 40 MG* 1 ML VIAL IV SCH ×2 (08:33→20:30)
[2018-03-03] MEDS: Piperacillin/Tazobac ADVAN(*) 3.375 GM in NS 0.9% 100 ML* 100 ML IVPB SCH ×2 (08:33→18:29)
[2018-03-03] MEDS: DULoxetine DR CAP* 60 MG CAP.DR PO SCH (08:33)
[2018-03-03] MEDS: Ipratropium 0.5MG/2.5ML NEB* 0.5 MG/2.5 ML NEB.SOLN INH PRN (14:16)
[2018-03-03] MEDS: fentaNYL PATCHs 100 MCG/HR TRANSDERM SCH (15:11)
[2018-03-03] MEDS ORDERED: LORazepam TAB(*) 1 MG PO ONE (15:41)
--- NOTE | 2018-03-03 19:24 | PN ---
Progress Note - Progress Note Date of Service: 03/03/18 - Pulm f/u note Note: Pt seen and examined at bedside. Pt reports SOB. She is audibly wheezing. Denies chest pain Active Medications Generic Name Dose Route Start Last Admin Trade Name Freq PRN Reason Stop Dose Admin Duloxetine HCl 60 mg 02/27/18 09:00 03/03/18 08:33 Cymbalta Cap* PO 60 mg DAILY ALLYSSA Administration Fentanyl 100 mcg 02/25/18 15:00 03/03/18 15:11 Duragesic Patch 100 Mcg/Hr * TRANSDERM 100 mcg Q72H ALLYSSA Administration Fentanyl 25 mcg 03/02/18 12:00 03/02/18 12:24 Duragesic Patch 25 Mcg/Hr* TRANSDERM 25 mcg Q72H ALLYSSA Administration Hydromorphone HCl 2 mg 02/25/18 17:27 03/03/18 18:43 Dilaudid Inj1s* IV 2 mg Q2H PRN Administration PAIN Piperacillin Sod/Tazobactam 100 mls @ 25 mls/hr 02/25/18 16:00 03/03/18 18:29 Sod 3.375 gm/ Sodium Chloride IVPB 25 mls/hr Q8H ALLYSSA Administration Ipratropium [place] 0.5 mg 02/25/18 14:15 03/03/18 14:16 Atrovent 0.5 Mg Neb.Sariah* INH 0.5 mg Q4H PRN Administration SOB/WHEEZING Levalbuterol HCl 1.25 mg 02/26/18 19:00 03/03/18 12:21 Xopenex 1.25 Mg/0.5 Ml Neb.Sariah* INH 1.25 mg [id number] AWAKE ALLYSSA Administration Methylprednisolone Sodium Succinate 40 mg 03/01/18 21:00 03/03/18 08:33 Solu-Medrol 40 Mg IV 40 mg BID ALLYSSA Administration Ondansetron HCl 4 mg 02/25/18 15:00 03/03/18 14:48 Zofran Tab* PO 4 mg Q4H ALLYSSA Administration Ondansetron HCl 4 mg 02/25/18 19:50 03/02/18 12:27 Zofran Inj* IV 4 mg Q6H PRN Administration NAUSEA Pantoprazole Sodium 40 mg 02/28/18 09:00 03/03/18 08:33 Protonix Iv* IV 40 mg DAILY ALLYSSA Administration Pharmacy Consult 1 note 02/25/18 15:00 Zosyn Per Pharmacy* FOLLOW UP .ZOSYN PER PHARMACY [facility] Pharmacy Profile Note 1 note 02/25/18 19:00 03/03/18 05:09 Fentanyl Patch Check Q Shift FOLLOW UP 1 note 0700,1900 [facility] Administration Vital Signs Temp Pulse Resp BP Pulse Ox 98.3 F 88 18 174/84 94 03/03/18 16:11 03/03/18 16:11 03/03/18 18:43 03/03/18 16:11 03/03/18 16:11 O/E: Pt in NAD HEENT: PERRLA Lungs: Audible wheeze+ CVS: S1, S2+, regualr Abd: Obese, BS+, PEG + Skin: No rash Neuro: No focal defecits Echo: Diastolic dysfunction, trivial pericardial effusion CTA: No filling defects, large rt lung mass, mediastinal adenopathy Laboratory Results - last 24 hr 03/03/18 03/03/18 06:53 06:53 WBC 12.2 H RBC 2.96 L Hgb 8.3 L Hct 27 L MCV 90 MCH 28 MCHC 31 RDW 24 H Plt Count 167 MPV 7.4 Sodium 145 Potassium 3.6 Chloride 110 Carbon Dioxide 32 Anion Gap 3 BUN 15 Creatinine 0.72 Est GFR ( Amer) 103.3 Est GFR (Non-Af Amer) 85.4 BUN/Creatinine Ratio 20.8 H Glucose 135 H Calcium 8.7 Total Bilirubin 0.30 AST 17 ALT 26 Alkaline Phosphatase 52 Total Protein 5.4 L Albumin 3.1 L Globulin 2.3 Albumin/Globulin Ratio 1.3 I/R: 52 y o obese f with metastatic NSCL cancer s/p chemo/XRT with complicated course, with recurrent hospitalizations, with esophageal obstruction s/p dilation, s/p PEG placement Pt was intubated for PEG placement, she has aubible wheeze on auscultation Contacted resp for nebulizer treatment and racemic epinephrine Tolerating PEG feeds c/w steroids Back pain- c/w Dilaudid and Fentanyl patch Not on anticoagulation for A.fib and prior h/o PE due to h/o GI bleed CTA didnot show acute PE D/w bedside RN regarding need for close monitoring tonight for any acute worsening of SOB Ptis DNR For home hospice placement when stable
[2018-03-03] MEDS ORDERED: EPINEPHrine,Rac 2.25% NEB.SOL* 0.5 ML INH PRN (21:04)
[2018-03-04] MEDS: Piperacillin/Tazobac ADVAN(*) 3.375 GM in NS 0.9% 100 ML* 100 ML IVPB SCH ×2 (00:17→07:59)
[2018-03-04] MEDS: HYDROmorphone INJ1* 1 MG/ML SYRINGE IV PRN ×4 (00:24→10:37)
[2018-03-04] MEDS: Levalbuterol 1.25MG/0.5ML NEB INH SCH ×2 (00:44→07:42)
[2018-03-04] MEDS: Ondansetron TAB* 4 MG PO SCH ×2 (03:07→07:59)
[2018-03-04] MEDS: fentaNYL Patch Check Q Shift 1 NOTE FOLLOW UP SCH (09:20)
--- NOTE | 2018-03-04 10:28 | DCNOTE ---
Patient was anxious with increased shortness of breath last night. For this reason she stayed overnight last night. Respiratory symptoms are at baseline this morning. No changes. Please see full discharge summary from 03/03/18
[2018-03-04] MEDS: methylPREDNISolone SOD 40 MG* 1 ML VIAL IV SCH (10:37)
[2018-03-04] MEDS: Pantoprazole IV* 40 MG IV SCH (10:38)
[2018-03-04] MEDS: DULoxetine DR CAP* 60 MG CAP.DR PO SCH (10:45)
--- NOTE | 2018-03-04 11:24 | DS ---
CC: Marianne Mcneill MD * DISCHARGE SUMMARY: DATE OF ADMISSION: 02/25/18 DATE OF DISCHARGE: 03/03/18 PRIMARY ONCOLOGIST: Marianne Mcneill MD ATTENDING PHYSICIAN: Simon Paredes MD *(DICTATED BY KWESI RANDALL) DISCHARGING PROVIDER: KWESI Randall PRIMARY DISCHARGE DIAGNOSES: 1. Rapid atrial fibrillation with associated demand ischemia. 2. Recurrent esophageal obstruction, now status post PEG tube placement . 3. Recurrent postobstructive pneumonia with chronic obstructive pulmonary disease exacerbation. 4. GI bleed. 5. Metastatic non-small cell lung cancer. 6. History of pulmonary embolism. DISCHARGE MEDICATIONS: 1. Albuterol inhaler 2 puffs inhaled q.4 hours as needed for shortness of breath. 2. Benzonatate 100 mg p.o. 3 times daily as needed for cough. 3. Cymbalta 60 mg p.o. daily. 4. Multivitamin 1 tablet p.o. daily. 5. Zofran 4 mg p.o. q.4 hours as needed for nausea and vomiting. 6. Augmentin 875 mg p.o. twice daily x14 days. 7. Fentanyl patch 100 mcg patch and 25 mcg patch to be used in combination. 8. Dilaudid 2 to 4 mg p.o. q.4 hours as needed for pain. 9. Ipratropium solution to be used in combination with albuterol solution inhaled q.4 hours as needed for shortness of breath. 10. Metoprolol tartrate 25 mg p.o. twice daily. 11. Omeprazole 20 mg p.o. twice daily. 12. Prednisone 60 mg p.o. daily. 13. Senna 1 tablet p.o. at bedtime. HOSPITAL IMAGING: Chest x-ray 02/25/18 shows a stable right perihilar mass. CTA of the chest. Negative for PE. Large right lung mass encasing the hilum and associated with probable postobstructive pneumonitis similar to prior exam. Gross near complete atelectasis of the right middle lobe and small dependent right pleural effusion without interval increase, unchanged probable pathologic fracture of the T7 vertebral body. HOSPITAL COURSE: This is a very unfortunate 52-year-old female with metastatic non- small cell lung cancer who has had multiple recent hospitalizations. She most recently was discharged from the hospital 02/23/18. The patient had been treated for recurrent esophageal obstruction and had dilation of the distal esophagus during her hospitalization as well as recurrent postobstructive pneumonia. She was discharged to home with instructions to maintain a soft diet , and within 2 days of returning home she was unable to tolerate either liquids or solids and had significant nausea and vomiting. She contacted medical oncology office with these symptoms and plans were made to insert a PEG tube to allow for adequate nutrition as an outpatient. The patient was scheduled for PEG tube placement on 02/25/18, but that morning she developed acute shortness of breath and came to the emergency department in respiratory distress. She is noted to be in rapid atrial fibrillation with initial heart rate measured at 195 beats per minute. Initial labs showed a leukocytosis with a white blood cell count of 22,900. Blood gas showed respiratory alkalosis. Chemistries showed mild bump in creatinine to 1.14, elevated troponin at 0.07, and lactic acid at 2.6. CTA of the chest showed no evidence of PE and stable right hilar mass with near complete compressive atelectasis of the right middle lobe, likely provider service representative of a postobstructive pneumonia. She was subsequently admitted to ICU with concern for severe sepsis. She received IV digoxin and bolus diltiazem. Shortly thereafter, she converted to a normal sinus rhythm and her respiratory symptoms improved significantly. The patient was quickly moved out of ICU and continued treatment for her postobstructive pneumonia and COPD with Solu-Medrol and Zosyn. Her feelings of esophageal obstruction resolved after approximately 24 hours and she was able to tolerate liquids without vomiting. PEG tube was eventually placed by Dr. Milton Zapata on 03/01/18 without complication and the patient tolerated tube feedings well during her hospitalization. Of note, the patient was briefly placed on anticoagulation during her hospitalization and she had a precipitous drop in hemoglobin. She had a similar experience approximately 1 month ago, at which time she had an upper endoscopy that demonstrated old blood in her stomach but the source of bleeding was not readily identified as her sedation was suboptimal. The patient's anticoagulation was subsequently stopped and restarted on PPI and her hemoglobin remained stable. DISPOSITION: Followup. PLAN: The patient is being discharged to the home with plans for admission to home hospice services. PEG tube is in place to allow for adequate nutrition, but as long as she is able, she can certainly continue with liquids by mouth. Registered dietitian recommendations are to start with 120 mL 4 times a day of Jevity via the PEG tube and to increase to 240 mL with a goal of 1680 mL per day to maintain her current weight. The patient will sign on with hospice shortly after returning home. KWESI RANDALL [id number]/[facility] #: [id number] [facility]
[2018-03-04 12:08] VITALS: BP 158/88
== END 2018-03-04 12:00 | disposition hospice, home (50) | DRG 720 ==
LOC: ED 11:33 → ICU 14:08 → MEDTELE 02-26 09:53
PROVIDERS: ADMIT Internal Medicine; ATTEND Internal Medicine Hematology & Oncology
PROC: 0DH63UZ Insertion of Feeding Device into Stomach, Percutaneous Approach (ICD-10-PCS; principal; 2018-03-01 13:30)
DX: A41.9 Sepsis, unspecified organism (principal); J96.91 Respiratory failure, unspecified with hypoxia; R65.21 Severe sepsis with septic shock; J18.9 Pneumonia, unspecified organism; C79.51 Secondary malignant neoplasm of bone; C34.90 Malignant neoplasm of unspecified part of unspecified bronchus or lung; I47.1 Supraventricular tachycardia; J44.1 Chronic obstructive pulmonary disease with (acute) exacerbation; J98.11 Atelectasis; E87.2 Acidosis; J44.0 Chronic obstructive pulmonary disease with (acute) lower respiratory infection; K92.2 Gastrointestinal hemorrhage, unspecified; I24.8 Other forms of acute ischemic heart disease; J90 Pleural effusion, not elsewhere classified; E87.3 Alkalosis; I48.91 Unspecified atrial fibrillation; E86.0 Dehydration; E66.9 Obesity, unspecified; D64.9 Anemia, unspecified; Z51.5 Encounter for palliative care; M54.9 Dorsalgia, unspecified; D47.3 Essential (hemorrhagic) thrombocythemia; E88.09 Other disorders of plasma-protein metabolism, not elsewhere classified; Z66 Do not resuscitate; I10 Essential (primary) hypertension; K22.2 Esophageal obstruction; Z79.52 Long term (current) use of systemic steroids; Z85.118 Personal history of other malignant neoplasm of bronchus and lung; Z92.21 Personal history of antineoplastic chemotherapy; Z92.3 Personal history of irradiation; Z87.01 Personal history of pneumonia (recurrent); Z90.49 Acquired absence of other specified parts of digestive tract; Z90.710 Acquired absence of both cervix and uterus; Z87.891 Personal history of nicotine dependence; Z86.711 Personal history of pulmonary embolism; Z88.8 Allergy status to other drugs, medicaments and biological substances; Z68.27 Body mass index [BMI] 27.0-27.9, adult; Z99.81 Dependence on supplemental oxygen
CPT/HCPCS: 36415; 71045; 71275; 80053; 81003; 81015; 82803; 83605; 83735; 83880; 84484; 84702; 85025; 85027; 85610; 85730; 87040; 87086; 87641; 93005; 93306; 94640; 96365; 99232; 99233; 99239; 99285; A9270-GY; J0153; J1160; J1170; J1650; J1940; J2250; J2270; J2405; J2543; J2704; J2765; J2920; J2930; J3370; Q9967